=== PATIENT | male | born 1985 | race Hispanic/Latino ===

== ENCOUNTER 2023-10-27 22:28 | Inpatient (IN) | payer OTHER, SELFPAY ==
[2023-10-27] VITALS (8 sets, daily range): BP systolic 98–138; BP diastolic 72–110; BMI 40.9
[2023-10-27 15:51] LABS: % Basophils 0.5 % (0-2); % Immature Granulocytes 0.6 % (0-0.5); % Lymphocytes 26.4 % (20.5-51.1); % Monocytes 6.2 % (1.7-9.3); % Neutrophils 65.3 % (42.2-75.2); Absolute Basophils 0.1 10^3/uL (0-0.2); Absolute Eosinophils 0.1 10^3/uL (0-0.7); Absolute Immature Granulocytes 0.1 10^3/uL (0-0.05); Absolute Lymphocytes 2.6 10^3/uL (1.2-3.4); Absolute Monocytes 0.6 10^3/uL (0.1-0.6); Absolute Neutrophils 6.3 10^3/uL (1.4-6.5); Hematocrit 41.7 % (39.0-52.0); Hemoglobin 14.1 g/dL (13.0-18.0); Mean Corp Hgb Conc. 33.8 g/dL (33.0-37.0); Mean Corpuscular Hgb 26.1 pg (27.0-31.0); Mean Corpuscular Volume 77.2 fL (80.0-94.0); Mean Platelet Volume 10.7 fL (7.4-10.4); Nucleated Red Blood Cells % 0 % (-); Platelet Count 229 10^3/uL (130-400); Red Cell Dist. Width 15.6 % (11.5-14.5); White Blood Cell Count 9.7 10^3/uL (4.8-10.8)
[2023-10-27 16:04] LABS: ALT (SGPT) 70 U/L (0-50); AST (SGOT) 68 U/L (17-59); Albumin 4.2 g/dl (3.5-5.0); Alkaline Phosphatase 88 U/L (38-126); Blood Urea Nitrogen 18 mg/dl (9-20); Calcium 8.9 mg/dl (8.4-10.2); Carbon Dioxide 17 mmol/L (22-30); Chloride 110 mmol/L (98-107); Glucose 133 mg/dl (70-99); Potassium 4.6 mmol/L (3.5-5.1); Sodium 136 mmol/L (135-145); Total Bilirubin 0.7 mg/dl (0.2-1.3); Total Protein 7.1 g/dl (6.3-8.2); eGFR > 60.00
[2023-10-27 16:17] LABS: Troponin I 0.035 ng/ml
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
--- NOTE | 2023-10-27 16:46 | PHANOTE ---
10/27/2023, med rec tech, spoke to pt. to obtain their medication history; According to pharmacy fill data, pt. last filled their Farxiga 10 mg, Entresto 97-103 mg, and Furosemide 20 mg on 03/28/2023 for 30-day supplies of each. Pt. last filled
their Carvedilol 25 mg on 02/28/2023 for a 30-day supply. Pt. also states to be taking Losartan 25 mg daily; however, I could not find this med. in pt.'s pharmacy fill data or in [facility] records. Therefore, could not confirm it. Called pt.'s pharmacy
([facility] in [place]) and they confirmed pt.'s last fill dates.
[2023-10-27] MEDS: CARDIZEM 20 MG IV (17:12)
[2023-10-27] MEDS: CARDIZEM 125 IV (17:13)
[2023-10-27 18:01] LABS: NT-proBNP 3530 pg/ml
[2023-10-27 20:01] LABS: Troponin I 0.034 ng/ml
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
[2023-10-27] MEDS: ELIQUIS 5 MG PO (23:05)
[2023-10-27] MEDS: COREG 25 MG PO (23:05)
[2023-10-28] VITALS (46 sets, daily range): BP systolic 55–150; BP diastolic 30–136; BMI 42.1
[2023-10-28 00:23] LABS: Troponin I 0.041 ng/ml
[2023-10-28 00:37] LABS: TSH Reflex To Free T4 3.67 uIU/ml (0.47-4.68)
[2023-10-28] MEDS: XANAX 0.25 MG PO (02:43)
[2023-10-28 03:57] LABS: Venous Blood Gas HCO3 20.7 mmol/L (22-27); Venous Blood Gas O2 Sat % 38.4 %; Venous Blood Gas pCO2 44 mmHg (35-48); Venous Blood Gas pH 7.28 (7.32-7.43); Venous Blood Gas pO2 28 mmHg (30-50)
[2023-10-28 03:58] LABS: Venous Blood Gas O2 Therapy NRB 10 L
[2023-10-28] MEDS: LASIX 40 MG IV (04:05)
[2023-10-28 05:36] LABS: Hemoglobin 14.8 g/dL (13.0-18.0); Mean Corp Hgb Conc. 32.2 g/dL (33.0-37.0); Mean Corpuscular Hgb 26.5 pg (27.0-31.0); Mean Corpuscular Volume 82.3 fL (80.0-94.0); Mean Platelet Volume 10.2 fL (7.4-10.4); Platelet Count 290 10^3/uL (130-400); Red Blood Cell Count 5.59 10^6/uL (4.70-6.10); Red Cell Dist. Width 15.8 % (11.5-14.5)
[2023-10-28 06:04] LABS: Troponin I 0.027 ng/ml
--- NOTE | 2023-10-28 06:20 | PTCARENOTE ---
Pt HR sustaining 110-120s, SAHIL Bowen notified.
[2023-10-28 06:23] LABS: Blood Urea Nitrogen 22 mg/dl (9-20); Carbon Dioxide 20 mmol/L (22-30); Chloride 107 mmol/L (98-107); Estimated Creatinine Clearance 102 ml/min; Glucose 136 mg/dl (70-99); HDL Cholesterol 33 mg/dl; Iron 190 ug/dl (49-181); LDL Cholesterol, Calculated 84 mg/dl; Sodium 139 mmol/L (135-145); Total Cholesterol 144 mg/dl (50-199); Triglyceride 136 mg/dl (10-149); Very Low Density Lipoprotein 27 mg/dl (0-30); eGFR > 60.00
[2023-10-28 06:32] LABS: Percent Saturation 44 % (20-50); Total Iron Binding Capacity 423 ug/dl (261-462)
[2023-10-28 06:41] LABS: Ferritin 69.7 ng/ml (17.9-464.0)
[2023-10-28] MEDS: LOPRESSOR 2.5 MG IV (06:56)
--- NOTE | 2023-10-28 07:01 | EDRN ---
this RN received the pt from previous edging machine feeder RN, the pt is sleeping in stretcher in the lowest position, side rails up x1, HOB elevated, call horton within reach, the pt is AAO, able to answer questions appropriately and able to move all
extremities, the pt is Afib on the monitor in the 115-130's, edging machine feeder RN notified provider and Lopressor IV was administered, the pts HR is still in the 120's after administration, this RN will notify provider, last BP 126/80 (87), the pt was
received on 15L non re breather and was 100% Sp02, this RN placed the pt on 6L NC and Sp02 is 100%, edging machine feeder RN notified this RN that the pt refused Bipap last night, respiratory and provider wanted the pt on bipap due to increased work of
breathing and the pt refused, the pt is tachypnic in the 30's, this RN will reach out to provider to discuss HR and respiratory status, will continue to monitor the pt closely
--- NOTE | 2023-10-28 08:19 | CON.CAR ---
Consultation
Consultation Request
Date/Time Consultation Requested: 10/27/23 22:30
Date/Time Consultation Performed: 10/28/23 08:00
Requesting Provider: Dr. Bueno
Performing Provider: SAHIL Anderson for Dr. Benjamin
Reason for Consultation: Atrial fibrillation with RVR
Medical History
-
Chief Complaint: Palpitations
History of Present Illness:
Patient is a 38 year old male (known to Dr. Brunner, his primary woodwind instruments inspector) with type B PDA status postclosure, HFrEF, pulmonary hypertension, and paroxysmal atrial fibrillation who presented to the emergency department with a chief complaint of
palpitations. He states he gets intermittent palpitations multiple times per week but they usually self resolve and are nonlimiting. They will last for a few seconds. He had persistent palpitations starting what sounds like 10/26/2023.
He felt like his heart was racing. He presented to the emergency department when his heart rate would not slow down. He was found to be in atrial fibrillation with rapid ventricular response. He was given apixaban 5 mg last evening. Initially,
he was started on a diltiazem drip but his blood pressure did not support this. He denies missed doses of medications. He endorses adherence with daily weight. He believes he has gained approximately 3 pounds over the last 3 days. He has
associated orthopnea. He has some lower extremity edema which she reports is new over the past week. He is not on oral anticoagulation. He states he had paroxysmal atrial fibrillation briefly after his PDA procedure. He has an elevated proBNP of
3530 (comparison 184 in 08/2022). He is hypoxic and tachypneic. He is currently on 6 L nasal cannula. VBG overnight prompted BiPAP which the patient could not tolerate.
Records have been requested by his primary woodwind instruments inspector.
Past Medical History
Past Medical History: Arrhythmias (Paroxysmal atrial fibrillation), CHF (HFrEF) and Other (PDA s/p closure, morbid obesity)
Past Surgical History: Cardiac (PDA closure)
Social History
Tobacco: Non-Smoker
Alcohol: Occasional
Drug: None
Personal:
Living: With Family
Employment: Employed
Family History
Family History: Reviewed & Not Pertinent (Denies early CAD and SCD.)
Allergies / Home Medications
Allergy/AdvReac Type Severity Reaction Status Date / Time
No Known Allergies Allergy Verified 10/27/23 15:32
Medication Instructions Recorded Confirmed Type
losartan 25 mg tablet 25 mg PO DAILY Blood pressure 12/24/21 08/03/22 History
carvedilol 25 mg tablet 25 mg PO Q12H 10/27/23 10/27/23 History
dapagliflozin propanediol 10 mg 10 mg PO DAILY 10/27/23 10/27/23 History
tablet (Farxiga)
furosemide 20 mg tablet 60 mg PO DAILY 10/27/23 10/27/23 History
sacubitril 97 mg-valsartan 103 mg 1 tab PO BID 10/27/23 10/27/23 History
tablet (Entresto)
Review of Systems
-
History Source: Patient
All other systems: Negative unless noted
Constitutional: Weight Gain and Fatigue
Respiratory: Trouble Breathing
Cardiac: Palpitations
Abdomen/GI: No Symptoms
Musculoskeletal: Edema
Physical Exam
Vital Signs
Temp Pulse Resp BP Pulse Ox
98.5 F 119 27 114/94 99
10/28/23 07:02 10/28/23 08:01 10/28/23 08:01 10/28/23 08:01 10/28/23 08:00
Lab Results
10/28/23 05:24
10/28/23 05:24
Troponin I 0.027 ng/ml D 10/28/23 05:24
Umn-L-Vnciitdnriq Pept 3530 pg/ml 10/27/23 15:40
Physical Exam
General: Well Developed, Well Nourished and Respiratory Distress (mild)
HEENT: Normocephalic, Anicteric and Moist Mucous Membranes
Respiratory: Accessory Resp Muscle Use and Other (coarse bilateral bases)
Cardiac: S1/S2, Irregular Rhythm and Peripheral Edema (+1 non pitting ankle edema)
Breast: Deferred by me
GI: Soft, Non Tender, Non Distended and Normal Bowel Sounds
Rectal: Deferred by Provider
Genito-urinary: No Costovertebral Tender
Musculoskeletal: No Clubbing and No Cyanosis
Skin: Warm and Dry
Neuro: AO x 3
Hematologic/Lymphatic: No Lymphadenopathy
Psych: Calm
Impression / Plan
-
Acute hypoxic respiratory failure
-CXR without overwhelming heart failure
-VBG with metabolic acidosis
-Declined BiPAP overnight
Atrial fibrillation with rapid ventricular response
-Rates elevated, did not tolerate intravenous diltiazem
-Start digoxin
-Oral Anticoagulation: None prior to arrival, started apixaban 5mg BID last evening
-[id number]: Score 1 as of now (Heart failure)
-TSH 3.67
HFrEF (EF 30-35% by TTE 2021), chronic
-He received diuresis overnight, hold with rising creatinine
-GDMT as tolerated
-Beta-iglesia: Carvedilol 25 mg twice daily
-Aldosterone agonist: Can consider after recovery
-Sacubitril/valsartan: 97-103 mg twice daily
-SGLT inhibitor: Farxiga 10 mg daily
-Heart failure education as he recovers
-Trend daily weight, I/O, and BMP with diuresis
Abnormal troponin, likely nonischemic myocardial injury in the setting of tachyarrhythmia
-Chest pain-free, peak troponin appears to be 0.041
Pulmonary HTN, moderate, update TTE
Fasting hyperglycemia, HgbA1c pending
PDA S/P occlusion
Obesity, BMI 40, he would benefit from weight loss, concern for KARAN, he denies prior outpatient sleep study
Data Reviewed
-
EKG: Report Reviewed by me (Atrial fibrillation with rapid ventricular response, rate 158; atrial fibrillation with rapid ventricular response, nonspecific T wave abnormality, rate 117)
Radiology: Report Reviewed by me (CXR: Moderate to severe cardiomegaly. Severe chronic distention of the main pulmonary artery secondary to treated left to right shunting across a patent ductus arteriosus. Occlusion device now in place in the left
side of the mediastinum.)
Labs: Labs Reviewed by me
Old Records: Reviewed
[2023-10-28] MEDS: COREG 25 MG PO ×2 (09:13→19:39)
[2023-10-28] MEDS: ELIQUIS 5 MG PO ×2 (09:13→19:39)
--- NOTE | 2023-10-28 09:21 | EDRN ---
cardiology at the bedside speaking with the pt, the pt was able to order breakfast, the pt presses the call horton when he needs to stand at the bedside to urinate in the urinal, HR still currently in the 120-140's, AM medications administered,the pt
is currently still on 6L NC Sp02 96%, will continue to monitor the pt closely
[2023-10-28] MEDS: LANOXIN 250 MCG IV ×2 (09:33→10:48)
--- NOTE | 2023-10-28 09:35 | W.PN.HOSP.TC ---
Addendum entered and electronically signed by Brian Jeff DO 10/28/23 09:44:
Patient admits to drinking over a gallon of water daily. Counseled on importance of fluid and sodium restriction in light of his heart failure history.
Original Note:
Today's Communication/Plan
-
Hold Entresto
Await echo
Repeat labs in the morning
COVID-19 test
Assessment / Plan
Assessment / Plan
Gen-AAOx3, NAD
HEENT-NC, AT, anicteric, clear oral mm
Neck-supple
CV-reg, no M, +S1/S2
Lungs-decreased breath sounds bilaterally
Abd-soft, NT, ND
Ext-no edema
Musculoskeletal-no cyanosis, clubbing
Skin-warm and dry
Neuro-grossly non-focal
Psych-calm, cooperative
Acute hypoxic respiratory failure -suspect to be due to acute pulmonary edema, rapid atrial fibrillation, possibly pulmonary hypertension related as well. Currently on 6 L nasal cannula oxygen. Other considerations are right to left shunting.
Await echocardiogram. Discussed with cardiology.
Acute heart failure with reduced EF exacerbation -suspect overall volume overloaded but difficult exam due to his habitus. BNP 3530. Received a dose of IV Lasix early this morning, now on hold due to rising creatinine.
Has been on furosemide 60 mg daily at home.
Rapid atrial fibrillation -could not tolerate Cardizem due to hypotension. Digoxin started. Eliquis started, will continue. TSH normal.
CAMILO -creatinine up to 1.4. Will stop Entresto. Hold further diuretics for now. Check bladder scan.
Troponin elevation -probably due to non-[place] troponin elevation due to acute illness. Troponin has peaked.
PDA -status post closure [address] [facility].
Morbid obesity due to excess calories
Full code
updated at the bedside.
Anticipated Discharge: > 48 hours
Subjective/Interval History
-
Date of Service: October 28, 2023
Patient seen and examined. Complaining of shortness of breath, cough. Symptoms started on Tuesday.
Objective Data
-
Labs:
Laboratory Results
10/28/23 10/28/23
03:27 05:24
WBC 13.0 H
Hgb 14.8
Hct 46.0
Plt Count 290 D
HCO3 Cancelled
Sodium 139
Potassium 5.0
Chloride 107
Carbon Dioxide 20 L
BUN 22 H
Creatinine 1.4 H
Glucose 136 H
Calcium 9.0
Vital Signs:
Vital Signs
Temp Pulse Resp BP Pulse Ox
98.5 F 142 19 108/88 99
10/28/23 07:02 10/28/23 09:33 10/28/23 09:15 10/28/23 09:13 10/28/23 09:00
I&O
10/27/23 10/28/23 10/29/23
06:59 06:59 06:59
Output Total 900 / 900 500 / 500
Balance -900 / -900 -500 / -500
Review of Systems
-
History Source: Patient
All other systems: Reviewed and negative
[2023-10-28 10:41] LABS: COVID-19 Antigen Negative (Negative)
[2023-10-28 11:22] LABS: Troponin I 0.038 ng/ml
--- NOTE | 2023-10-28 11:47 | EDRN ---
the pt is resting in stretcher, family at the pts bedside, pts HR in the 120's in Afib, currently still on 6L NC Sp02 99%, no c/o chest pain,no c/o SOB, will continue to monitor the pt closely
--- NOTE | 2023-10-28 11:51 | CM ---
CM met with patient in room. Patient confirmed demographics. Patient lives independently with . Patient denies history of VN, SNF or DME. Patient uses [facility] for [facility]. Patient is active with his PCP.
CM called [facility] and confirmed Eliquis coverage at $40. Patient is agreeable to cost. 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
--- NOTE | 2023-10-28 12:57 | EDRN ---
verbal report called to the receiving nurse in IVU
--- NOTE | 2023-10-28 13:25 | EDRN ---
the pt is eating lunch, VS WNL, the pt denies needing anything at this time, will continue to monitor the pt closely
--- NOTE | 2023-10-28 14:35 | PTCARENOTE ---
Rec'd pt from ED AAOx3 w/c/o 'mild chest pressure, not really pain'. Pt able to ambulate unassisted into the rm. Pt CORRAL & at rest. Pt on 6L O2 via NC w/O2 sats in mid 90's. HR in the 110-120's at rest and in the 150's w/any activity. Pt w/family at
the bedside. Plan of care ongoing.
[2023-10-28] MEDS: LASIX 60 MG IV (17:40)
[2023-10-28] MEDS: FLUSH (NSS) 2 FLUSH IV (17:41)
[2023-10-28] MEDS: FLUSH (NSS) 1 FLUSH IV (19:41)
[2023-10-29] VITALS (8 sets, daily range): BP systolic 84–128; BP diastolic 57–95; BMI 41.6
--- NOTE | 2023-10-29 01:57 | PTCARENOTE ---
Addendum entered by Aurelia Gaytan RN 10/29/23 05:56:
Patient appears much more comfortable this morning. His breathing seems less labored and he states that he is feeling better this AM. He denies pain. He remains A-Fib on the monitor with improved HR mostly in the 110s-120s. He will jump into the
130s-140s at times, but he is mostly improved from the beginning of the shift. This was followed up by Temo Coker NP, this morning. Patient appears comfortable in bed at this time. Will continue to monitor.
Original Note:
Received patient at change of shift this PM. AAOx3. VSS on 2L O2. He is refusing BiPAP at night. He is A-Fib on the monitor. HR has been anywhere in the 110s-160s at times. Discussed this with Jhonatan Coker NP. 2.5mg IV Lopressor ordered and
decided to hold after looking at previous change in BP with IV Lopressor and scheduled Coreg together. BPs currently 110s-120s/70s. Will continue to monitor BP and HR through night. INTx2 patent. He denies chest pain or discomfort, but is SOB and
labored in breathing. Plan of care discussed. He is receptive to teaching and motivated. He denies pain and appears comfortable in bed at this time. He was advised to maintain bedrest until HR and breathing become more under control. He understands
to use his call horton for assistance. Will continue to monitor.
[2023-10-29 05:10] LABS: % Basophils 0.6 % (0-2); % Eosinophils 2.1 % (0-6); % Immature Granulocytes 0.6 % (0-0.5); % Lymphocytes 24.4 % (20.5-51.1); % Monocytes 7.7 % (1.7-9.3); % Neutrophils 64.6 % (42.2-75.2); Absolute Basophils 0.1 10^3/uL (0-0.2); Absolute Eosinophils 0.2 10^3/uL (0-0.7); Absolute Immature Granulocytes 0.1 10^3/uL (0-0.05); Absolute Lymphocytes 2.1 10^3/uL (1.2-3.4); Absolute Monocytes 0.7 10^3/uL (0.1-0.6); Absolute Neutrophils 5.7 10^3/uL (1.4-6.5); Hematocrit 42.9 % (39.0-52.0); Hemoglobin 13.9 g/dL (13.0-18.0); Mean Corp Hgb Conc. 32.4 g/dL (33.0-37.0); Mean Corpuscular Hgb 26.8 pg (27.0-31.0); Mean Corpuscular Volume 82.7 fL (80.0-94.0); Mean Platelet Volume 10.4 fL (7.4-10.4); Nucleated Red Blood Cells % 0 % (-); Platelet Count 254 10^3/uL (130-400); Red Blood Cell Count 5.19 10^6/uL (4.70-6.10); Red Cell Dist. Width 15.7 % (11.5-14.5); White Blood Cell Count 8.7 10^3/uL (4.8-10.8)
[2023-10-29 05:35] LABS: ALT (SGPT) 97 U/L (0-50); AST (SGOT) 53 U/L (17-59); Alkaline Phosphatase 83 U/L (38-126); Blood Urea Nitrogen 22 mg/dl (9-20); Calcium 8.4 mg/dl (8.4-10.2); Carbon Dioxide 26 mmol/L (22-30); Chloride 107 mmol/L (98-107); Estimated Creatinine Clearance 102 ml/min; Glucose 107 mg/dl (70-99); Potassium 4.7 mmol/L (3.5-5.1); Sodium 137 mmol/L (135-145); Total Bilirubin 0.6 mg/dl (0.2-1.3); Total Protein 6.7 g/dl (6.3-8.2); eGFR > 60.00
[2023-10-29] MEDS: LASIX 60 MG IV (08:35)
[2023-10-29] MEDS: COREG 25 MG PO ×2 (08:35→20:35)
[2023-10-29] MEDS: ELIQUIS 5 MG PO ×2 (08:35→20:33)
[2023-10-29] MEDS: FLUSH (NSS) 1 FLUSH IV (08:36)
--- NOTE | 2023-10-29 08:45 | W.PN.HOSP.TC ---
Today's Communication/Plan
-
Continue diuresis
Monitor weights
Bladder scan
Labs in the morning
Assessment / Plan
Assessment / Plan
Gen-AAOx3, NAD, obese
HEENT-NC, AT, anicteric, clear oral mm
Neck-supple
CV-reg, no M, +S1/S2
Lungs-decreased breath sounds bilaterally
Abd-soft, NT, ND
Ext-trace bilateral lower extremity edema
Musculoskeletal-no cyanosis, clubbing
Skin-warm and dry
Neuro-grossly non-focal
Psych-calm, cooperative
Acute hypoxic respiratory failure -suspect to be due to acute pulmonary edema, rapid atrial fibrillation, acute heart failure exacerbation. Oxygenation improving, now on 4 L nasal cannula oxygen.
Acute heart failure with reduced EF exacerbation -continue IV Lasix. Echocardiogram shows LVEF 15 to 20%, global hypokinesis, estimated PA pressure 30 to 35 mmHg. EF has dropped compared to January 2022 echocardiogram which was 30 to 35% at the time.
Rapid atrial fibrillation -could not tolerate Cardizem due to hypotension. Digoxin started. Continue carvedilol. Rates are still fast. Cardiology to assess today. Eliquis started, will continue. TSH normal.
CAMILO -creatinine up to 1.4, stable today. Hold Entresto. Monitor renal function closely on diuresis. Check bladder scan.
Troponin elevation -probably due to non-[place] troponin elevation due to acute illness.
Impaired fasting glucose -hemoglobin A1c 6.0%. Discussed with patient, weight loss is the gould.
PDA -status post closure 2 years ago, [facility].
Morbid obesity due to excess calories
Full code
Anticipated Discharge: > 48 hours
Subjective/Interval History
-
Date of Service: October 29, 2023
Patient seen and examined. States shortness of breath is improving. No other complaints.
Objective Data
-
Labs:
Laboratory Results
10/29/23
04:56
WBC 8.7
Hgb 13.9
Hct 42.9
Plt Count 254
Sodium 137
Potassium 4.7
Chloride 107
Carbon Dioxide 26
BUN 22 H
Creatinine 1.4 H
Glucose 107 H
Calcium 8.4
Total Bilirubin 0.6
AST 53
ALT 97 H
Alkaline Phosphatase 83
Vital Signs:
Vital Signs
Temp Pulse Resp BP Pulse Ox
97.4 F 126 20 120/81 100
10/29/23 08:26 10/29/23 08:26 10/29/23 08:26 10/29/23 08:26 10/29/23 08:26
I&O
10/28/23 10/29/23 10/30/23
06:59 06:59 06:59
Intake Total 480 / 480
Output Total 900 / 900 2325 / 2325
Balance -900 / -900 -1845 / -1845
Review of Systems
-
History Source: Patient
All other systems: Reviewed and negative
--- NOTE | 2023-10-29 11:44 | W.PN.CD ---
Addendum entered and electronically signed by Chase Benjamin MD 10/29/23 12:06:
I saw and examined the patient.
The FURNITURE DECALS INSPECTOR's note was reviewed and I agree with the note.
Comment: cont w dig loading for rate control
BP is low - not clear if he is volume overloaded, or if this is exacc of Pulm Htn
plan for RHC Tuesday
Original Note:
Today's Communication / Plan
-
Rate control AF- add digoxin
GDMT limited by renal function and BP
Plan RHC for Tuesday
Monitor renal function
Impression / Plan
-
Acute hypoxic respiratory failure
-CXR without overwhelming heart failure
-VBG with metabolic acidosis
-needs OP sleep study
Atrial fibrillation with rapid ventricular response
-Rates elevated, did not tolerate intravenous diltiazem
-add digoxin
-Oral Anticoagulation: None prior to arrival, started apixaban 5mg BID this admit
-[id number]: Score 1 as of now (Heart failure)
-TSH 3.67
HFrEF (EF 30-35% by TTE 2021), chronic
-He received diuresis overnight, hold with rising creatinine
-GDMT as tolerated
-Beta-iglesia: Carvedilol 25 mg twice daily
-Aldosterone agonist: Can consider after recovery
-Sacubitril/valsartan: 97-103 mg twice daily ( on hold given renal function and diuresis)
-SGLT inhibitor: Farxiga 10 mg daily
-Heart failure education as he recovers
-Trend daily weight, I/O, and BMP with diuresis
-echo 10/28/23 EF 15-20 global hypokinesis, mild MR, trace TR, PASP 30-35mmhg. LA volume severely abnormal > 48ml/m2)
-Consider RHC on Tuesday
CAMILO: creat 10/27 1.1 now 1.4 with diuresis, entresto held
Abnormal troponin, likely nonischemic myocardial injury in the setting of tachyarrhythmia
-Chest pain-free, peak troponin appears to be 0.041
Pulmonary HTN, moderate,
Fasting hyperglycemia, HgbA1c pending
PDA S/P occlusion
Obesity, BMI 40, he would benefit from weight loss, concern for KARAN, he denies prior outpatient sleep study
Physical Exam
Vital Signs/Labs
Vital Signs
Temp Pulse Resp BP Pulse Ox
97.4 F 126 20 120/81 100
10/29/23 08:26 10/29/23 08:26 10/29/23 08:26 10/29/23 08:26 10/29/23 08:26
10/28/23 10/29/23 10/30/23
06:59 06:59 06:59
Actual Weight 133 kg 135.1 kg
10/29/23 04:56
10/29/23 04:56
Triglycerides 136 mg/dl (10-149) 10/28/23 05:24
LDL Cholesterol, Calc 84 mg/dl 10/28/23 05:24
VLDL Cholesterol, Calc 27 mg/dl (0-30) 10/28/23 05:24
HDL Cholesterol 33 mg/dl 10/28/23 05:24
10/27/23
15:40
Jrj-C-Oqtitcvqphn Pept 3530
LAB Results
10/27/23 10/27/23 10/27/23
15:40 19:20 23:32
Troponin I 0.035 H* 0.034 0.041 H*
10/28/23 10/28/23
05:24 10:07
Troponin I 0.027 D 0.038 H* D
Physical Exam
Cardiovascular: Rhythm/rate is irregular (tachy)
Respiratory: Respiratory effort normal and Lungs clear to auscul. (few rales bases)
Neuro/Psych: AO x 3
Data Reviewed
-
Date of Service: October 29, 2023
Echo: Report Reviewed by me (Echo 10/28/23 The rhythm is atrial fibrillation with ventricular response rate 110-130. Severely reduced left ventricular systolic function. Left ventricular ejection fraction is 15-20%.Global hypokinesis. Indexed LA
volume is severely abnormal (> 48 mL/m2). Mild mitral regurgitation. Trace tric)
Medical Tests (PFT, Pathology etc): Other (tele- AF 100-120's )
Labs: Labs Reviewed by me
--- NOTE | 2023-10-29 12:30 | PTCARENOTE ---
O2 down to 4L-sat 99%. Patient still whipple. Pleasant and cooperative. Using call horton appropriately to make needs known.
[2023-10-29 13:51] LABS: Urine Albumin Negative (Neg - Trace); Urine Bilirubin Negative (Negative); Urine Character Clear (Clear); Urine Color Yellow; Urine Glucose Negative (Negative); Urine Ketone Negative (Negative); Urine Leukocyte Negative (Negative); Urine Nitrite Negative (Negative); Urine Occult Blood Negative (Negative); Urine Specific Gravity 1.015 (<1.030); Urine Urobilinogen Negative (Neg - 1+)
[2023-10-29] MEDS: LANOXIN 250 MCG PO (14:25)
--- NOTE | 2023-10-29 18:47 | PTCARENOTE ---
Pt oob independently in the room. Room air sat 99%. Pt denies any sob. No c/o offered.
[2023-10-30] VITALS (7 sets, daily range): BP systolic 108–129; BP diastolic 72–99; BMI 41.3
--- NOTE | 2023-10-30 00:26 | PTCARENOTE ---
Received pt at handoff. AOx4. Assessment noted as documented. Pt sating at 98% on RA. No c/o pain/discomfort/SOB. At 2300, VSS obtained. Sating at 95% RA. Pt now dyspneic at rest. 2L O2 nasal cannula placed sating at 97%. 30 min later pt rang call
sol. Pt requesting 4L O2 nasal cannula because that is where he feels the most comfortable while sleeping. Pt resting in bed; call sol w/in reach.
[2023-10-30 05:51] LABS: ALT (SGPT) 82 U/L (0-50); AST (SGOT) 45 U/L (17-59); Albumin 3.8 g/dl (3.5-5.0); Alkaline Phosphatase 83 U/L (38-126); Blood Urea Nitrogen 24 mg/dl (9-20); Calcium 8.7 mg/dl (8.4-10.2); Carbon Dioxide 23 mmol/L (22-30); Chloride 108 mmol/L (98-107); Estimated Creatinine Clearance > 125 ml/min; Glucose 101 mg/dl (70-99); Potassium 4.4 mmol/L (3.5-5.1); Sodium 137 mmol/L (135-145); Total Bilirubin 0.8 mg/dl (0.2-1.3); Total Protein 6.6 g/dl (6.3-8.2); eGFR > 60.00
--- NOTE | 2023-10-30 08:32 | W.PN.HOSP.TC ---
Today's Communication/Plan
-
Continue diuresis
Check labs in the morning
Assessment / Plan
Assessment / Plan
Gen-AAOx3, NAD, obese
HEENT-NC, AT, anicteric, clear oral mm
Neck-supple
CV-reg, no M, +S1/S2
Lungs-decreased breath sounds bilaterally
Abd-soft, NT, ND
Ext-trace bilateral lower extremity edema
Musculoskeletal-no cyanosis, clubbing
Skin-warm and dry
Neuro-grossly non-focal
Psych-calm, cooperative
Acute hypoxic respiratory failure -suspect to be due to acute pulmonary edema, rapid atrial fibrillation, acute heart failure exacerbation. Oxygenation improving, now on 4 L nasal cannula oxygen. Wean down as able.
Acute heart failure with reduced EF exacerbation -continue IV Lasix. Echocardiogram shows LVEF 15 to 20%, global hypokinesis, estimated PA pressure 30 to 35 mmHg. Echo reading may not be reliable in setting of tachycardia. EF has dropped compared
to January 2022 echocardiogram which was 30 to 35% at the time. Weight is down another kilogram overnight.
Right heart cath being considered. Discussed with Dr. Benjamin.
Rapid atrial fibrillation -could not tolerate Cardizem due to hypotension. Digoxin started. Continue carvedilol. Rates are still fast. Cardiology to assess today. Eliquis started, will continue. TSH normal.
CAMILO -creatinine improving, 1.1 today. Hold Entresto. Monitor renal function closely on diuresis. Bladder scan normal.
Troponin elevation -probably due to non-[place] troponin elevation due to acute illness.
Impaired fasting glucose -hemoglobin A1c 6.0%. Discussed with patient, weight loss is the gould.
PDA -status post closure 2 years ago, [facility].
Morbid obesity due to excess calories
Full code
Anticipated Discharge: > 48 hours
Subjective/Interval History
-
Date of Service: October 30, 2023
Patient seen and examined. Feeling better, less short of breath, still with mild dyspnea on exertion. Denies orthopnea.
Objective Data
-
Labs:
Laboratory Results
10/30/23
04:54
Sodium 137
Potassium 4.4
Chloride 108 H
Carbon Dioxide 23
BUN 24 H
Creatinine 1.1
Glucose 101 H
Calcium 8.7
Total Bilirubin 0.8
AST 45
ALT 82 H
Alkaline Phosphatase 83
Vital Signs:
Vital Signs
Temp Pulse Resp BP Pulse Ox
97.4 F 123 20 125/79 100
10/30/23 07:13 10/30/23 07:13 10/30/23 07:13 10/30/23 07:13 10/30/23 07:13
I&O
10/29/23 10/30/23 10/31/23
06:59 06:59 06:59
Intake Total 480 / 480 1060 / 1060
Output Total 2325 / 2325 2024 / 2024
Balance -1845 / -1845 -965 / -965
Review of Systems
-
History Source: Patient
All other systems: Reviewed and negative
[2023-10-30] MEDS: ELIQUIS 5 MG PO ×2 (08:50→19:47)
[2023-10-30] MEDS: LASIX 60 MG IV ×2 (08:51→17:40)
[2023-10-30] MEDS: FLUSH (NSS) 1 FLUSH IV ×2 (08:52→19:48)
[2023-10-30] MEDS: COREG 25 MG PO ×2 (08:53→19:47)
--- NOTE | 2023-10-30 10:12 | W.PN.CD ---
Today's Communication / Plan
-
-
increase diuresis to BID
ELVIS-CV in AM
cancel plan for RHC unless renal function get worse w diuresis
Impression / Plan
-
Hx of CM w EF 40% and w PDA closure in 2021, followed at [facility] adult [facility] clinic
-
Acute hypoxic respiratory failure
-CXR without overwhelming heart failure, but he is improving w diuresis
-VBG with metabolic acidosis, resolved
-needs OP sleep study
Atrial fibrillation with rapid ventricular response, new per patient
-Rates elevated, did not tolerate intravenous diltiazem due to BP falling
-add digoxin, but limited by ocassional pauses
-Oral Anticoagulation: None prior to arrival, started apixaban 5mg BID this admit
-[id number]: Score 1 as of now (Heart failure)
-TSH 3.67
-Plan ELVIS Cv in AM Tuesday
HFrEF (EF 30-35% by TTE 2021), chronic
-He received diuresis Cr increased, but now has improved
-GDMT as tolerated
-Beta-iglesia: Carvedilol 25 mg twice daily
-Aldosterone agonist: Can consider after recovery
-Sacubitril/valsartan: 97-103 mg twice daily ( on hold given renal function and diuresis)
-SGLT inhibitor: Farxiga 10 mg daily
-Heart failure education as he recovers
-Trend daily weight, I/O, and BMP with diuresis
-echo 10/28/23 EF 15-20 global hypokinesis, mild MR, trace TR, PASP 30-35mmhg. LA volume severely abnormal > 48ml/m2)
-Consider RHC if renal function does not tolerate diuresis - so far, renal function is improving
CAMILO: creat 10/27 1.1 now 1.4 with diuresis, entresto held
Abnormal troponin, likely nonischemic myocardial injury in the setting of tachyarrhythmia
-Chest pain-free, peak troponin appears to be 0.041
Pulmonary HTN, moderate,
Fasting hyperglycemia, HgbA1c pending
PDA S/P occlusion
Obesity, BMI 40, he would benefit from weight loss, concern for KARAN, he denies prior outpatient sleep study
Dischg Planning
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
Physical Exam
Vital Signs/Labs
Vital Signs
Temp Pulse Resp BP Pulse Ox
97.4 F 123 20 125/79 100
10/30/23 07:13 10/30/23 07:13 10/30/23 07:13 10/30/23 07:13 10/30/23 07:13
10/29/23 10/30/23 10/31/23
06:59 06:59 06:59
Actual Weight 297 lb 13.512 oz 296 lb 1.293 oz
10/29/23 04:56
10/30/23 04:54
Triglycerides 136 mg/dl (10-149) 10/28/23 05:24
LDL Cholesterol, Calc 84 mg/dl 10/28/23 05:24
VLDL Cholesterol, Calc 27 mg/dl (0-30) 10/28/23 05:24
HDL Cholesterol 33 mg/dl 10/28/23 05:24
10/27/23
15:40
Xkk-X-Grbxvjxljeq Pept 3530
LAB Results
10/27/23 10/27/23 10/27/23
15:40 19:20 23:32
Troponin I 0.035 H* 0.034 0.041 H*
10/28/23 10/28/23
05:24 10:07
Troponin I 0.027 D 0.038 H* D
Physical Exam
Cardiovascular: Rhythm & rate is regular and Pedal edema present
Respiratory: Respiratory effort normal and Crackles Present
Data Reviewed
-
Date of Service: October 30, 2023
EKG: Tracing Personally Visualized and interpreted
Echo: Report Reviewed by me
Medical Tests (PFT, Pathology etc): Image Personally Visualized and interpreted
Labs: Labs Reviewed by me
[2023-10-30] MEDS: LANOXIN 250 MCG PO (11:04)
--- NOTE | 2023-10-30 18:25 | PTCARENOTE ---
Pt remains in Afib, rate in the 100's to 140's. Pt has occasional dyspnea with exertion. No c/o offered.
[2023-10-31] VITALS (8 sets, daily range): BP systolic 104–148; BP diastolic 73–135; BMI 40.8
--- NOTE | 2023-10-31 00:22 | PTCARENOTE ---
Received patient at change of shift this PM. AAOx3. VSS. He is A-Fib on the monitor. HR in the 110s-130s. INTx2 patent. He denies chest pain or discomfort. Plan of care discussed with patient and his at the bedside. He is receptive to teaching
and motivated. He understands that he is to remain NPO for ELVIS/CV tomorrow. We discussed his medications. He denies pain and appears comfortable in bed at this time. Will continue to monitor.
[2023-10-31 06:18] LABS: ALT (SGPT) 83 U/L (0-50); AST (SGOT) 47 U/L (17-59); Alkaline Phosphatase 85 U/L (38-126); Blood Urea Nitrogen 27 mg/dl (9-20); Calcium 9.2 mg/dl (8.4-10.2); Carbon Dioxide 26 mmol/L (22-30); Chloride 100 mmol/L (98-107); Estimated Creatinine Clearance > 125 ml/min; Glucose 108 mg/dl (70-99); Potassium 3.9 mmol/L (3.5-5.1); Sodium 138 mmol/L (135-145); Total Bilirubin 0.9 mg/dl (0.2-1.3); Total Protein 6.8 g/dl (6.3-8.2); eGFR > 60.00
[2023-10-31] MEDS: COREG 25 MG PO ×2 (08:31→20:49)
[2023-10-31] MEDS: LASIX 60 MG IV ×2 (08:31→15:53)
[2023-10-31] MEDS: ELIQUIS 5 MG PO ×2 (08:31→20:49)
--- NOTE | 2023-10-31 09:02 | PTCARENOTE ---
Assumed care of pt from night RN. Pt received awake and alert, Ox3. VSS. CM shows AF 100-130's, POX 100% on RA. Pt remains NPO for ELVIS/ECHO. He denies any pain or discomfort at this time. Report given to CCL RN, pt taken to CL for ELVIS/ECHO.
[2023-10-31] MEDS: TYLENOL 650 MG PO ×2 (10:34→20:54)
--- NOTE | 2023-10-31 10:38 | PTCARENOTE ---
Received pt from CL post EVLIS/ECHO. He arrives to room in NSR 70-80's. Tylenol 650 mg given po for 6/10 h/a as per DEC. Diet re-instated as ordered.
--- NOTE | 2023-10-31 10:49 | W.PN.CD ---
Today's Communication / Plan
-
- s/p DCCV now back in sinus
- continue IV diuresis
Impression / Plan
-
Hx of CM w EF 40% and w PDA closure in 2021, followed at [facility] adult congenital clinic
-
Acute hypoxic respiratory failure
-CXR without overwhelming heart failure, but he is improving w diuresis
-VBG with metabolic acidosis, resolved
-needs OP sleep study
Atrial fibrillation with rapid ventricular response, new per patient --> S/p DCCV with yazdanism of sinus rhythm
-Rates elevated, did not tolerate intravenous diltiazem due to BP falling
-add digoxin, but limited by ocassional pauses
-Oral Anticoagulation: None prior to arrival, started apixaban 5mg BID this admit, will need to remain on indefinitely
-[id number]: Score 1 as of now (Heart failure)
-TSH 3.67
-Sinus rhythm restored on 10/31
HFrEF (EF 30-35% by TTE 2021), chronic TTE this admit showed EF of 15-20%
-He received diuresis Cr increased, but now has improved
-GDMT as tolerated
-Beta-iglesia: Carvedilol 25 mg twice daily
-Aldosterone agonist: Can consider after recovery
-Sacubitril/valsartan: 97-103 mg twice daily ( on hold given renal function and diuresis)
-SGLT inhibitor: Farxiga 10 mg daily
- Continue IV diuresis BID, once dry weight achieved (270 lbs?) will restart Farxiga and Entresto
-Heart failure education as he recovers
-Trend daily weight, I/O, and BMP with diuresis
-echo 10/28/23 EF 15-20 global hypokinesis, mild MR, trace TR, PASP 30-35mmhg. LA volume severely abnormal > 48ml/m2)
-Consider RHC if renal function does not tolerate diuresis - so far, renal function is improving
CAMILO: creat 10/27 1.1 now 1.4 back to 1.1 resolving
Abnormal troponin, likely nonischemic myocardial injury in the setting of tachyarrhythmia
-Chest pain-free, peak troponin appears to be 0.041
Pulmonary HTN, moderate,
Fasting hyperglycemia, HgbA1c pending
PDA S/P occlusion
Obesity, BMI 40, he would benefit from weight loss, concern for KARAN, he denies prior outpatient sleep study
Dischg Planning
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
Physical Exam
Vital Signs/Labs
Vital Signs
Temp Pulse Resp BP Pulse Ox
97.7 F 126 20 122/103 100
10/31/23 07:57 10/31/23 08:31 10/31/23 07:57 10/31/23 08:31 10/31/23 08:49
10/30/23 10/31/23 11/01/23
06:59 06:59 06:59
Actual Weight 296 lb 1.293 oz 292 lb 1.8 oz
10/29/23 04:56
10/31/23 05:17
Triglycerides 136 mg/dl (10-149) 10/28/23 05:24
LDL Cholesterol, Calc 84 mg/dl 10/28/23 05:24
VLDL Cholesterol, Calc 27 mg/dl (0-30) 10/28/23 05:24
HDL Cholesterol 33 mg/dl 10/28/23 05:24
10/27/23
15:40
Qfk-Q-Vmqecfncntr Pept 3530
LAB Results
10/28/23
10:07
Troponin I 0.038 H* D
Physical Exam
Constitutional: No acute distress
EENT: Anicteric
Cardiovascular: Rhythm & rate is regular and Pedal edema present (trace)
Respiratory: Respiratory effort normal and Lungs clear to auscul.
GI: Soft
Neuro/Psych: AO x 3
Data Reviewed
-
Date of Service: October 31, 2023
EKG: Tracing Personally Visualized and interpreted
Echo: Tracing Personally Visualized and interpreted
Labs: Labs Reviewed by me
[2023-10-31] MEDS: LANOXIN 250 MCG PO (11:14)
--- NOTE | 2023-10-31 13:28 | CM ---
Chart reviewed. Patient is independent of ADLS, lives with his in a 2 STH, 0 DANN, 0 DME. Plan is for the patient to return home. CM to follow
--- NOTE | 2023-10-31 14:35 | W.PN.HOSP.TC ---
Today's Communication/Plan
-
cont Eliquis
await cards input re: appropriateness for d/c
Assessment / Plan
Assessment / Plan
pt is a 38 year old male
Acute hypoxic respiratory failure--suspect to be due to acute pulmonary edema, rapid atrial fibrillation, acute systolic heart failure exacerbation-- off O2 now
Acute heart failure with reduced EF exacerbation--continue IV Lasix. Echocardiogram shows LVEF 15 to 20%, global hypokinesis, estimated PA pressure 30 to 35 mmHg. Echo reading may not be reliable in setting of tachycardia. EF has dropped compared
to January 2022 echocardiogram which was 30 to 35% at the time--perhaps rate related?
Rapid atrial fibrillation -could not tolerate Cardizem due to hypotension. Digoxin started. Continue carvedilol--apprec cards-- Eliquis started, will continue. TSH normal.
CAMILO -creatinine improving, 1.1 today. Hold Entresto. Monitor renal function closely on diuresis. Bladder scan normal.
Troponin elevation -probably due to non-[place] troponin elevation due to acute illness.
Impaired fasting glucose -hemoglobin A1c 6.0%. Discussed with patient, weight loss is the gould.
PDA -status post closure 2 years ago, [facility].
Morbid obesity due to excess calories
Full code
Anticipated Discharge: 24 - 48 hours
Subjective/Interval History
-
Date of Service: October 31, 2023
pt feeling better after cardioversion and ongoing diuresis
Objective Data
-
Labs:
Laboratory Results
10/31/23
05:17
Sodium 138
Potassium 3.9
Chloride 100
Carbon Dioxide 26
BUN 27 H
Creatinine 1.1
Glucose 108 H
Calcium 9.2
Total Bilirubin 0.9
AST 47
ALT 83 H
Alkaline Phosphatase 85
Vital Signs:
max temp for 24 hours
10/30/23
19:45
Temp 98.2 F
Vital Signs
Temp Pulse Resp BP Pulse Ox
97.2 F 75 20 114/73 97
10/31/23 11:55 10/31/23 13:00 10/31/23 11:55 10/31/23 11:56 10/31/23 11:55
I&O
10/30/23 10/31/23 11/01/23
06:59 06:59 06:59
Intake Total 1060 / 1060 240 / 240
Output Total 2024 4800 / 4800
Balance -965 / -965 -4560 / -4560
Review of Systems
-
All other systems: Reviewed and negative
Physical Exam
-
General: Well Developed, Well Nourished and No Apparent Distress
HEENT: Normocephalic and Atraumatic
Respiratory: Clear to Auscultation; Negative Wheezes or Rhonchi
Cardiac: Regular Rhythm and S1/S2; Negative Murmur
GI: Soft, Nontender, Nondistended and Normal Bowel Sounds
Musculoskeletal: No Clubbing and No Cyanosis; Negative No Edema (trace edema bilaterally)
Neuro: Awake
[2023-10-31 17:25] LABS: Digoxin 0.6 ng/ml (0.8-2.0)
[2023-10-31] MEDS: FLUSH (NSS) 1 FLUSH IV (20:48)
[2023-11-01] VITALS (8 sets, daily range): BP systolic 112–135; BP diastolic 68–103; BMI 40.3
--- NOTE | 2023-11-01 00:19 | PTCARENOTE ---
Received patient at change of shift this PM. AAOx3. VSS. NSR on the monitor. HR in the 70s-80s. INT patent. He denies chest pain, but admits to some discomfort to his right-sided neck. He was given Tylenol for this. See MAR. Plan of care discussed.
He is receptive to teaching and motivated. He understands that he is currently back into a NSR and that he may have to stay longer for additional diuresis. We discussed his medications. The patient and his family were educated at the bedside. He
denies pain and appears comfortable in bed at this time. Will continue to monitor.
[2023-11-01 06:17] LABS: Hematocrit 45.4 % (39.0-52.0); Hemoglobin 15.4 g/dL (13.0-18.0); Mean Corp Hgb Conc. 33.9 g/dL (33.0-37.0); Mean Corpuscular Hgb 26.9 pg (27.0-31.0); Mean Corpuscular Volume 79.4 fL (80.0-94.0); Mean Platelet Volume 10.3 fL (7.4-10.4); Platelet Count 267 10^3/uL (130-400); Red Blood Cell Count 5.72 10^6/uL (4.70-6.10); Red Cell Dist. Width 14.8 % (11.5-14.5); White Blood Cell Count 8.7 10^3/uL (4.8-10.8)
[2023-11-01 06:40] LABS: NT-proBNP 1020 pg/ml
[2023-11-01 06:53] LABS: ALT (SGPT) 86 U/L (0-50); AST (SGOT) 50 U/L (17-59); Alkaline Phosphatase 81 U/L (38-126); Blood Urea Nitrogen 24 mg/dl (9-20); Calcium 9.3 mg/dl (8.4-10.2); Carbon Dioxide 24 mmol/L (22-30); Chloride 100 mmol/L (98-107); Estimated Creatinine Clearance > 125 ml/min; Glucose 108 mg/dl (70-99); Magnesium 2.2 mg/dl (1.6-2.3); Potassium 3.9 mmol/L (3.5-5.1); Sodium 138 mmol/L (135-145); Total Protein 6.8 g/dl (6.3-8.2); eGFR > 60.00
--- NOTE | 2023-11-01 08:15 | W.PN.HOSP.TC ---
Today's Communication/Plan
-
cont diuresis
defer to cards re: when ready for d/c
Assessment / Plan
Assessment / Plan
pt is a 38 year old male
Acute hypoxic respiratory failure--suspect to be due to acute pulmonary edema, rapid atrial fibrillation, acute systolic heart failure exacerbation-- off O2
Acute heart failure with reduced EF exacerbation--continue IV Lasix. Echocardiogram shows LVEF 15 to 20%, global hypokinesis, estimated PA pressure 30 to 35 mmHg. Echo reading may not be reliable in setting of tachycardia. EF has dropped compared
to January 2022 echocardiogram which was 30 to 35% at the time--perhaps rate related?--weights decreasing but previous weights in 2021 were 114Kg-- will defer to cards re: d/c
Rapid atrial fibrillation -could not tolerate Cardizem due to hypotension. Digoxin started. Continue carvedilol--apprec cards-- Eliquis started, will continue. TSH normal.
CAMILO -creatinine improving-- consider restarting Entresto. Monitor renal function closely on diuresis. Bladder scan normal.
Troponin elevation -probably due to non-[place] troponin elevation due to acute illness.
Impaired fasting glucose -hemoglobin A1c 6.0%. Discussed with patient, weight loss is the gould.
PDA -status post closure 2 years ago, [facility].
Morbid obesity due to excess calories
Full code
Anticipated Discharge: 24 - 48 hours
Subjective/Interval History
-
Date of Service: November 01, 2023
pt without c/o
Objective Data
-
Labs:
Laboratory Results
11/01/23
05:47
WBC 8.7
Hgb 15.4
Hct 45.4
Plt Count 267
Sodium 138
Potassium 3.9
Chloride 100
Carbon Dioxide 24
BUN 24 H
Creatinine 1.0
Glucose 108 H
Calcium 9.3
Total Bilirubin 1.0
AST 50
ALT 86 H
Alkaline Phosphatase 81
Vital Signs:
max temp for 24 hours
10/27/23
16:16 10/31/23
05:06 11/01/23
05:25
Temp 98.3 F
Actual Weight 133 kg 132.5 kg
Vital Signs
Temp Pulse Resp BP Pulse Ox
98.1 F 80 18 125/100 98
11/01/23 08:12 11/01/23 05:25 11/01/23 08:12 11/01/23 05:25 11/01/23 08:12
I&O
10/31/23 11/01/23 11/02/23
06:59 06:59 06:59
Intake Total 240 / 240 240 / 240 240 / 240
Output Total 4800 / 4800 2200 / 2200
Balance -4560 / -4560 -1960 / -1960 240 / 240
Review of Systems
-
All other systems: Reviewed and negative
Physical Exam
-
General: Well Developed, Well Nourished and No Apparent Distress
HEENT: Normocephalic and Atraumatic
Respiratory: Clear to Auscultation; Negative Wheezes, Rales, Rhonchi or Crackles
Cardiac: Regular Rhythm and S1/S2; Negative Murmur
GI: Soft, Nontender, Nondistended and Normal Bowel Sounds
Musculoskeletal: No Clubbing, No Cyanosis and No Edema
Skin: Warm
Neuro: Awake
Psych: Calm
--- NOTE | 2023-11-01 08:18 | W.PN.CD ---
Today's Communication / Plan
-
cotninue iv diuresis
start Farxiga
decreased digoxin
Impression / Plan
-
Hx of CM w EF 40% and w PDA closure in 2021, followed at [facility] adult congenital clinic
-
Acute hypoxic respiratory failure
-CXR without overwhelming heart failure, but he is improving w diuresis
-VBG with metabolic acidosis, resolved
-needs OP sleep study
Atrial fibrillation with rapid ventricular response, new per patient --> S/p DCCV with mandaen of sinus rhythm
-Rates elevated, did not tolerate intravenous diltiazem due to BP falling ---> S/p ELVIS/DCCV 10/31/23
-continue digoxin given heart failure but will decrease dose.
-Oral Anticoagulation: None prior to arrival, started apixaban 5mg BID this admit, will need to remain on indefinitely
-[id number]: Score 1 as of now (Heart failure), but suspect underlying HTN given the degree of bp elevation prior to medications, so likely a 2
-TSH 3.67
-Sinus rhythm restored on 10/31
-Recommended rhythm control given CMY and symptoms, he would like to consider options as an outpatient.
HFrEF (EF 30-35% by TTE 2021), chronic TTE this admit showed EF of 15-20%
-He received diuresis Cr increased, but now has improved
-Volume status difficult on exam due to body habitus, but still well above dry weight
-GDMT as tolerated
-Beta-iglesia: Carvedilol 25 mg twice daily
-Aldosterone agonist: Can consider after recovery
-Sacubitril/valsartan: 97-103 mg twice daily ( on hold given renal function and diuresis)-resume when 'dry'.
-SGLT inhibitor: Farxiga 10 mg daily---Resume today
- Continue IV diuresis BID with intensive monitoring of labs and vitals
-Heart failure education as he recovers
-Trend daily weight, I/O, and BMP with diuresis
-echo 10/28/23 EF 15-20 global hypokinesis, mild MR, trace TR, PASP 30-35mmhg. LA volume severely abnormal > 48ml/m2)
CAMILO: creat 10/27 1.1 now 1.4 back to 1.1 resolving
Abnormal troponin, likely nonischemic myocardial injury in the setting of tachyarrhythmia
-Chest pain-free, peak troponin appears to be 0.041
Pulmonary HTN, moderate,
Fasting hyperglycemia, HgbA1c pending
PDA S/P occlusion
Obesity, BMI 40, he would benefit from weight loss, concern for KARAN, he denies prior outpatient sleep study
Discharge Planning
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
Subjective:
-feeling much better, no cp or sob
Physical Exam
Vital Signs/Labs
Vital Signs
Temp Pulse Resp BP Pulse Ox
98.1 F 80 18 125/100 98
11/01/23 08:12 11/01/23 05:25 11/01/23 08:12 11/01/23 05:25 11/01/23 08:12
10/31/23 11/01/23 11/02/23
06:59 06:59 06:59
Actual Weight 132.5 kg
11/01/23 05:47
11/01/23 05:47
Magnesium 2.2 mg/dl (1.6-2.3) 11/01/23 05:47
Triglycerides 136 mg/dl (10-149) 10/28/23 05:24
LDL Cholesterol, Calc 84 mg/dl 10/28/23 05:24
VLDL Cholesterol, Calc 27 mg/dl (0-30) 10/28/23 05:24
HDL Cholesterol 33 mg/dl 10/28/23 05:24
Digoxin Cancelled 10/31/23 11:55
10/27/23 11/01/23
15:40 05:47
Jov-A-Wkwqafkhgdr Pept 3530 1020
Physical Exam
Constitutional: No acute distress
EENT: Anicteric
Cardiovascular: Rhythm & rate is regular, Pedal edema is absent and Systolic murmur absent
Respiratory: Wheeze Absent, Crackles Absent, Rhonchi Absent and Other (increased dyspnea with just conversation )
GI: Soft and Non tender
Neuro/Psych: AO x 3
Data Reviewed
-
Date of Service: November 01, 2023
EKG: Other (tele sinus rhythm)
Medical Tests (PFT, Pathology etc): Discussed with Family (His was on the phone for our visit, d/w them the options for rhythm control and ongoing diuresis)
[2023-11-01] MEDS: LASIX 60 MG IV ×2 (09:38→15:56)
[2023-11-01] MEDS: ELIQUIS 5 MG PO ×2 (09:43→20:50)
[2023-11-01] MEDS: COREG 25 MG PO ×2 (09:43→20:49)
[2023-11-01] MEDS: FARXIGA 10 MG PO (09:43)
--- NOTE | 2023-11-01 10:45 | CM ---
Chart reviewed. Patient is independent of ADLS, lives with his in a 2 STH, 0 DANN, 0 DME. Plan is for the patient to return home when medically stable. Patient currently with no discharge needs. CM to follow
[2023-11-01] MEDS: LANOXIN 125 MCG PO (12:38)
[2023-11-01] MEDS: FLUSH (NSS) 1 FLUSH IV (20:50)
--- NOTE | 2023-11-02 02:48 | PTCARENOTE ---
Received patient at change of shift this PM. AAOx3. VSS. He is NSR on the monitor. HR in the 80s. INTx2 patent. He denies chest pain or discomfort. Plan of care discussed with patient and family at the bedside. He is receptive to teaching and
motivated. We discussed his medications and his plan for additional diuresis before discharge. He denies pain and appears comfortable in bed at this time. Will continue to monitor.
[2023-11-02 04:48] VITALS: BP 120/76
[2023-11-02 05:03] LABS: Hematocrit 45.5 % (39.0-52.0); Hemoglobin 15.5 g/dL (13.0-18.0); Mean Corp Hgb Conc. 34.1 g/dL (33.0-37.0); Mean Corpuscular Hgb 26.2 pg (27.0-31.0); Mean Platelet Volume 9.8 fL (7.4-10.4); Platelet Count 269 10^3/uL (130-400); Red Blood Cell Count 5.91 10^6/uL (4.70-6.10); Red Cell Dist. Width 14.8 % (11.5-14.5); White Blood Cell Count 8.5 10^3/uL (4.8-10.8)
[2023-11-02 05:42] LABS: ALT (SGPT) 88 U/L (0-50); AST (SGOT) 44 U/L (17-59); Albumin 4.2 g/dl (3.5-5.0); Alkaline Phosphatase 90 U/L (38-126); Blood Urea Nitrogen 25 mg/dl (9-20); Calcium 9.5 mg/dl (8.4-10.2); Carbon Dioxide 28 mmol/L (22-30); Chloride 98 mmol/L (98-107); Estimated Creatinine Clearance > 125 ml/min; Glucose 102 mg/dl (70-99); Magnesium 2.4 mg/dl (1.6-2.3); Potassium 3.7 mmol/L (3.5-5.1); Sodium 139 mmol/L (135-145); Total Bilirubin 0.9 mg/dl (0.2-1.3); eGFR > 60.00
[2023-11-02 06:00] VITALS: BMI 40.0
[2023-11-02 07:13] VITALS: BP 115/84
--- NOTE | 2023-11-02 08:11 | W.PN.CD ---
Addendum entered and electronically signed by Leanna Emerson MD 11/02/23 09:20:
ECG reviewed QTC 432 on my manual measurement will start Tikosyn.
Original Note:
Today's Communication / Plan
-
ECG now for possible Tikosyn loading
continue diuresis
Impression / Plan
-
Hx of CM w EF 40% and w PDA closure in 2021, followed at [facility] adult congenital clinic
-
Acute hypoxic respiratory failure
-CXR without overwhelming heart failure, but he is improving w diuresis
-VBG with metabolic acidosis, resolved
-needs OP sleep study
Atrial fibrillation with rapid ventricular response, new per patient --> S/p DCCV with jain of sinus rhythm
-Rates elevated, did not tolerate intravenous diltiazem due to BP falling ---> S/p ELVIS/DCCV 10/31/23
-continue digoxin given heart failure but will decrease dose.
-Oral Anticoagulation: None prior to arrival, started apixaban 5mg BID this admit, will need to remain on indefinitely
-[id number]: Score 1 as of now (Heart failure), but suspect underlying HTN given the degree of bp elevation prior to medications, so likely a 2
-TSH 3.67
-Sinus rhythm restored on 10/31
-Recommended rhythm control given CMY and symptoms, he is now agreeable to possible Tikosyn initiation if candidate
-Check ECG and QTc now
HFrEF (EF 30-35% by TTE 2021), chronic TTE this admit showed EF of 15-20%
-He received diuresis Cr increased, but now has improved
-Volume status difficult on exam due to body habitus, but still well above dry weight
-GDMT as tolerated
-Beta-iglesia: Carvedilol 25 mg twice daily
-Aldosterone agonist: Can consider after recovery
-Sacubitril/valsartan: 97-103 mg twice daily ( on hold given renal function and diuresis)-resume when 'dry'.
-SGLT inhibitor: Farxiga 10 mg daily---Resume today
- Continue IV diuresis BID with intensive monitoring of labs and vitals
-Heart failure education as he recovers
-Trend daily weight, I/O, and BMP with diuresis
-echo 10/28/23 EF 15-20 global hypokinesis, mild MR, trace TR, PASP 30-35mmhg. LA volume severely abnormal > 48ml/m2)
CAMILO: creat 10/27 1.1 now 1.4 back to 1.1 stable continue to monitor with ongoing diuresis
Abnormal troponin, likely nonischemic myocardial injury in the setting of tachyarrhythmia
-Chest pain-free, peak troponin appears to be 0.041
Pulmonary HTN, moderate,
Fasting hyperglycemia, HgbA1c pending
PDA S/P occlusion
Obesity, BMI 40, he would benefit from weight loss, concern for KARAN, he denies prior outpatient sleep study
Discharge Planning
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
Subjective:
-feeling much better, no cp or sob. 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
Physical Exam
Vital Signs/Labs
Vital Signs
Temp Pulse Resp BP Pulse Ox
98 F 76 16 120/76 98
11/02/23 07:12 11/02/23 07:12 11/02/23 07:12 11/02/23 04:48 11/02/23 07:12
11/01/23 11/02/23 11/03/23
06:59 06:59 06:59
Actual Weight 130 kg
11/02/23 04:44
11/02/23 04:44
Magnesium 2.4 mg/dl (1.6-2.3) H 11/02/23 04:44
Triglycerides 136 mg/dl (10-149) 10/28/23 05:24
LDL Cholesterol, Calc 84 mg/dl 10/28/23 05:24
VLDL Cholesterol, Calc 27 mg/dl (0-30) 10/28/23 05:24
HDL Cholesterol 33 mg/dl 10/28/23 05:24
Digoxin Cancelled 10/31/23 11:55
10/27/23 11/01/23
15:40 05:47
Xba-K-Ukneoyajdff Pept 3530 1020
Physical Exam
Constitutional: No acute distress
Cardiovascular: Rhythm & rate is regular, Pedal edema is absent, Systolic murmur absent and Diastolic murmur absent
Respiratory: Respiratory effort normal, Lungs clear to auscul., Wheeze Absent, Crackles Absent and Rhonchi Absent
Neuro/Psych: AO x 3
Data Reviewed
-
Date of Service: November 02, 2023
EKG: Other (sinus)
[2023-11-02] MEDS: ELIQUIS 5 MG PO ×2 (09:00→20:08)
[2023-11-02] MEDS: FARXIGA 10 MG PO (09:01)
[2023-11-02] MEDS: LASIX 60 MG IV ×2 (09:01→15:58)
--- NOTE | 2023-11-02 09:18 | W.PN.HOSP.TC ---
Today's Communication/Plan
-
Tikosyn load and diuresis
Assessment / Plan
Assessment / Plan
pt is a 38 year old male
Acute hypoxic respiratory failure--suspect to be due to acute pulmonary edema, rapid atrial fibrillation, acute systolic heart failure exacerbation--resolved, off O2
Acute heart failure with reduced EF exacerbation--continue IV Lasix. Echocardiogram shows LVEF 15 to 20%, global hypokinesis, estimated PA pressure 30 to 35 mmHg. Echo reading may not be reliable in setting of tachycardia. EF has dropped compared
to January 2022 echocardiogram which was 30 to 35% at the time--perhaps rate related?--weights decreasing but previous weights in 2021 were 114Kg-- pt agreeable to start Tikosyn
Rapid atrial fibrillation -could not tolerate Cardizem due to hypotension. Digoxin started. Continue carvedilol--apprec cards-- Eliquis started, will continue. TSH normal.
CAMILO -creatinine improving-- consider restarting Entresto. Monitor renal function closely on diuresis. Bladder scan normal.
Troponin elevation -probably due to non-[place] troponin elevation due to acute illness.
Impaired fasting glucose -hemoglobin A1c 6.0%. Discussed with patient, weight loss is the gould.
PDA -status post closure 2 years ago, [facility].
Morbid obesity due to excess calories
Full code
Anticipated Discharge: > 48 hours
Subjective/Interval History
-
Date of Service: November 02, 2023
pt agreeable to starting Tikosyn and continued diuresis
Objective Data
-
Labs:
Laboratory Results
11/02/23
04:44
WBC 8.5
Hgb 15.5
Hct 45.5
Plt Count 269
Sodium 139
Potassium 3.7
Chloride 98
Carbon Dioxide 28
BUN 25 H
Creatinine 1.1
Glucose 102 H
Calcium 9.5
Total Bilirubin 0.9
AST 44
ALT 88 H
Alkaline Phosphatase 90
Vital Signs:
Selected Entries
10/27/23
16:16 11/02/23
06:00
Actual Weight 133 kg 130 kg
Vital Signs
Temp Pulse Resp BP Pulse Ox
98 F 69 16 115/84 98
11/02/23 07:12 11/02/23 09:01 11/02/23 07:12 11/02/23 09:01 11/02/23 07:12
I&O
11/01/23 11/02/23 11/03/23
06:59 06:59 06:59
Intake Total 240 / 240 1560 / 1560
Output Total 2200 / 2200 2400 / 2400
Balance -1960 / -1960 -840 / -840
Review of Systems
-
All other systems: Reviewed and negative
Physical Exam
-
General: Well Developed, Well Nourished and No Apparent Distress
HEENT: Normocephalic and Atraumatic; Negative Oxygen
Respiratory: Clear to Auscultation; Negative Wheezes or Rhonchi
Cardiac: Regular Rhythm and S1/S2; Negative Murmur
GI: Soft, Nontender, Nondistended and Normal Bowel Sounds
Musculoskeletal: No Clubbing and No Cyanosis; Negative No Edema (trace edema bilaterally)
Skin: Warm
Neuro: Awake
Psych: Calm
--- NOTE | 2023-11-02 09:20 | W.CARD.TIKOS ---
Initiate Tikosyn
-
I verify that the patient has not taken any verapamil (Isoptin/Calan), ketoconazole (Nizoral), cimetidine (Tagamet), trimethoprim (Trimpex), trimethoprim/sulfamethoxazole (Bactrim), megesterol (Megace), prochlorperazine (Compazine),
hydrochlorothiazide (HCTZ), dolutegravir (Tivicay) or any Class I or Class III anti-arrhythmic within the last three days
AND
I verify that the patient has not taken amiodarone within the last THREE months, or that the patient's amiodarone plasma concentration is <0.3 mcg/mL.
Creatinine 1.1 mg/dL (0.7-1.3) 11/02/23 04:44
Estimated Creat Clear > 125 ml/min 11/02/23 04:44
Does patient have a Ventricular Conduction Abnormality: No
I have assessed the baseline QTc interval (using QT for heart rate less than 60 bpm) and deemed the patient is appropriate for Dofetilide therapy. I understand that Tikosyn is contraindicated if the QTc is >440msec (500msec in patients with
ventricular conduction abnormalities).
Baseline QTc (in msec): 432
QTc interval is greater than 440msec without conduction abnormality OR greater than 500msec with a conduction abnormality, but acceptable to proceed per Cardiology attending.
Ordering Physician: Robyn Emerson
[2023-11-02] MEDS: COREG 25 MG PO ×2 (09:24→20:08)
[2023-11-02] MEDS: TIKOSYN 500 MCG PO ×2 (10:00→22:04)
--- NOTE | 2023-11-02 11:09 | CM ---
Pricing on Dofetilide through patient's prescription plan was $40 for a 90 day supply. Patient's [facility] does have Dofetilide 500 mcq in stock. I will follow up on day of discharge to confirm. CM to follow
[2023-11-02 11:37] VITALS: BP 106/72
[2023-11-02] MEDS: LANOXIN 125 MCG PO (13:09)
[2023-11-02 15:18] VITALS: BP 114/79
[2023-11-02 18:44] VITALS: BP 122/78
[2023-11-02 23:07] VITALS: BP 120/81
--- NOTE | 2023-11-02 23:40 | PTCARENOTE ---
Received at start of shift, HR SR 60s-80s. BP stable. Pt in bed with members of christian at bedside. Tikosyn dose #2 administered, QTc 477. Reinforced antiarrhythmic nature of drug with pt. Pt denies any CP, SOB, lightheadedness/dizziness at this
time. Call horton within reach.
Pt requesting medical records, especially EKG reports, to be sent to primary frog or oyster farmworker at [facility] in [facility].
[2023-11-03 04:22] VITALS: BP 128/79
[2023-11-03 04:36] VITALS: BMI 39.9
[2023-11-03 04:46] LABS: Hematocrit 45.8 % (39.0-52.0); Hemoglobin 15.8 g/dL (13.0-18.0); Mean Corp Hgb Conc. 34.5 g/dL (33.0-37.0); Mean Corpuscular Hgb 26.6 pg (27.0-31.0); Mean Platelet Volume 10.1 fL (7.4-10.4); Platelet Count 264 10^3/uL (130-400); Red Blood Cell Count 5.95 10^6/uL (4.70-6.10); Red Cell Dist. Width 14.9 % (11.5-14.5); White Blood Cell Count 7.9 10^3/uL (4.8-10.8)
[2023-11-03 05:20] LABS: Blood Urea Nitrogen 26 mg/dl (9-20); Calcium 9.5 mg/dl (8.4-10.2); Carbon Dioxide 29 mmol/L (22-30); Chloride 98 mmol/L (98-107); Estimated Creatinine Clearance > 125 ml/min; Glucose 101 mg/dl (70-99); Magnesium 2.6 mg/dl (1.6-2.3); Potassium 3.6 mmol/L (3.5-5.1); Sodium 137 mmol/L (135-145); eGFR > 60.00
[2023-11-03 07:52] VITALS: BP 132/95
--- NOTE | 2023-11-03 07:53 | W.PN.CD ---
Today's Communication / Plan
-
continue tikosyn at current dosing
stop dig
start entresto tomorrow am
Impression / Plan
-
Hx of CM w EF 40% and w PDA closure in 2021, followed at [facility] adult congenital clinic
-
Acute hypoxic respiratory failure
-CXR without overwhelming heart failure, but he is improving w diuresis
-VBG with metabolic acidosis, resolved
-needs OP sleep study
Atrial fibrillation with rapid ventricular response, new per patient --> S/p DCCV with gnosticism of sinus rhythm
-Rates elevated, did not tolerate intravenous diltiazem due to BP falling ---> S/p ELVIS/DCCV 10/31/23
-will stop digoxin
-Oral Anticoagulation: None prior to arrival, started apixaban 5mg BID this admit, will need to remain on indefinitely
-[id number]: Score 1 as of now (Heart failure), but suspect underlying HTN given the degree of bp elevation prior to medications, so likely a 2
-TSH 3.67
-Sinus rhythm restored on 10/31
-Recommended rhythm control given CMY and symptoms, he is now agreeable to possible Tikosyn initiation if candidate
-Tikosyn started: QTc stable. Continue current dose
HFrEF (EF 30-35% by TTE 2021), chronic TTE this admit showed EF of 15-20%
-He received diuresis Cr increased, but now has improved
-Volume status difficult on exam due to body habitus, but still well above dry weight
-GDMT as tolerated
-Beta-iglesia: Carvedilol 25 mg twice daily
-Aldosterone agonist: Can consider after recovery
-Sacubitril/valsartan: 97-103 mg twice daily ( on hold given renal function and diuresis)-resume tomorrow
-SGLT inhibitor: Farxiga 10 mg daily---Resume today
- Continue IV diuresis BID with intensive monitoring of labs and vitals
-Heart failure education as he recovers
-Trend daily weight, I/O, and BMP with diuresis
-echo 10/28/23 EF 15-20 global hypokinesis, mild MR, trace TR, PASP 30-35mmhg. LA volume severely abnormal > 48ml/m2)
CAMILO: creat 10/27 1.1 now 1.4 back to 1.1 stable continue to monitor with ongoing diuresis
Abnormal troponin, likely nonischemic myocardial injury in the setting of tachyarrhythmia
-Chest pain-free, peak troponin appears to be 0.041
Pulmonary HTN, moderate,
Fasting hyperglycemia, HgbA1c pending
PDA S/P occlusion
Obesity, BMI 40, he would benefit from weight loss, concern for KARAN, he denies prior outpatient sleep study
Discharge Planning
Tikosyn loading, will be complete late tomorrow, likely discharge tuesday evening vs Sat am
Subjective:
-feeling much better, no cp or sob.
Physical Exam
Vital Signs/Labs
Vital Signs
Temp Pulse Resp BP Pulse Ox
98 F 76 18 128/79 97
11/03/23 04:22 11/03/23 04:22 11/03/23 04:22 11/03/23 04:22 11/03/23 04:22
11/02/23 11/03/23 11/04/23
06:59 06:59 06:59
Actual Weight 130 kg 129.6 kg
11/03/23 04:31
11/03/23 04:31
Magnesium 2.6 mg/dl (1.6-2.3) H 11/03/23 04:31
Triglycerides 136 mg/dl (10-149) 10/28/23 05:24
LDL Cholesterol, Calc 84 mg/dl 10/28/23 05:24
VLDL Cholesterol, Calc 27 mg/dl (0-30) 10/28/23 05:24
HDL Cholesterol 33 mg/dl 10/28/23 05:24
Digoxin Cancelled 10/31/23 11:55
10/27/23 11/01/23
15:40 05:47
Dpn-V-Nkucmgwvdfk Pept 3530 1020
Physical Exam
Constitutional: No acute distress
Cardiovascular: Rhythm & rate is regular, Pedal edema is absent, JVD pressure is normal, Systolic murmur absent and Diastolic murmur absent
Respiratory: Respiratory effort normal, Lungs clear to auscul., Wheeze Absent, Crackles Absent and Rhonchi Absent
GI: Soft
Neuro/Psych: AO x 3
Data Reviewed
-
Date of Service: November 03, 2023
EKG: Tracing Personally Visualized and interpreted (sinus with stable qtc)
Medical Tests (PFT, Pathology etc): Discussed with Nurse (change timing of dofetilide to 1 hour earlier)
--- NOTE | 2023-11-03 08:09 | W.PN.HOSP.TC ---
Today's Communication/Plan
-
cont Tikosyn loading
Assessment / Plan
Assessment / Plan
pt is a 38 year old male
Acute hypoxic respiratory failure--suspect to be due to acute pulmonary edema, rapid atrial fibrillation, acute systolic heart failure exacerbation--resolved, off O2
Acute heart failure with reduced EF exacerbation--continue IV Lasix. Echocardiogram shows LVEF 15 to 20%, global hypokinesis, estimated PA pressure 30 to 35 mmHg--EF has dropped compared to January 2022 echocardiogram which was 30 to 35% at the
time--perhaps rate related?--weights decreasing but previous weights in 2021 were 114Kg-- Tikosyn loading--Entresto cont, farxiga started too
Rapid atrial fibrillation -could not tolerate Cardizem due to hypotension. Digoxin started. Continue carvedilol--apprec cards-- Eliquis started, will continue. TSH normal.
CAMILO -creatinine improving-- Entresto cont, farxiga started too Monitor renal function closely on diuresis. Bladder scan normal.
Troponin elevation -probably due to non-[place] troponin elevation due to acute illness.
Impaired fasting glucose -hemoglobin A1c 6.0%. Discussed with patient, weight loss is the gould.
PDA -status post closure 2 years ago, [facility].
Morbid obesity due to excess calories
Full code
Anticipated Discharge: 24 - 48 hours
Subjective/Interval History
-
Date of Service: November 03, 2023
pt without c/o
Objective Data
-
Labs:
Laboratory Results
11/03/23
04:31
WBC 7.9
Hgb 15.8
Hct 45.8
Plt Count 264
Sodium 137
Potassium 3.6
Chloride 98
Carbon Dioxide 29
BUN 26 H
Creatinine 1.1
Glucose 101 H
Calcium 9.5
Vital Signs:
max temp for 24 hours
11/02/23
19:25
Temp 98.3 F
Vital Signs
Temp Pulse Resp BP Pulse Ox
97.7 F 76 20 128/79 97
11/03/23 07:47 11/03/23 04:22 11/03/23 07:47 11/03/23 04:22 11/03/23 07:47
I&O
11/02/23 11/03/23 11/04/23
06:59 06:59 06:59
Intake Total 1560 / 1560 660 / 660
Output Total 2400 / 2400 2400 / 2400
Balance -840 / -840 -1740 / -1740
Review of Systems
-
All other systems: Reviewed and negative
Physical Exam
-
General: Well Developed, Well Nourished and No Apparent Distress
HEENT: Normocephalic and Atraumatic
Respiratory: Clear to Auscultation; Negative Wheezes or Rhonchi
Cardiac: Regular Rhythm and S1/S2; Negative Murmur
GI: Soft, Nontender, Nondistended and Normal Bowel Sounds
Musculoskeletal: No Clubbing and No Cyanosis; Negative No Edema (trace to 1+ edema bilaterally)
Skin: Warm
Neuro: Awake
[2023-11-03] MEDS: ELIQUIS 5 MG PO ×2 (08:37→19:44)
[2023-11-03] MEDS: COREG 25 MG PO ×2 (08:37→19:44)
[2023-11-03] MEDS: TIKOSYN 500 MCG PO ×2 (08:37→21:04)
[2023-11-03] MEDS: FARXIGA 10 MG PO (08:37)
[2023-11-03] MEDS: LASIX 60 MG IV ×2 (08:38→16:27)
--- NOTE | 2023-11-03 11:28 | CM ---
Pricing on Eliquis 5 mg BID though the the patient's PP is $40 a month, the patient has commercial insurance. $10 a month co pay card was placed in the patient's red discharge folder.
[2023-11-03 12:35] VITALS: BP 122/84
[2023-11-03] MEDS: LANOXIN 125 MCG PO (13:10)
[2023-11-03 16:17] VITALS: BP 141/84
[2023-11-03 18:45] VITALS: BP 132/85
[2023-11-03 22:12] VITALS: BP 136/78
[2023-11-04] VITALS (8 sets, daily range): BP systolic 81–137; BP diastolic 47–73; BMI 39.7
--- NOTE | 2023-11-04 00:27 | PTCARENOTE ---
Pt received at start of shift. HR SR/SB 50s-80s. Pt OOB with and daughter at bedside. 4th tikosyn dose administered, QTc 438. Reinforced purpose of Tikosyn with pt. Educated pt on possible side effects of medication and why we are monitoring pt
during the first few doses. Pt states no further questions. Pt denies any SOB, lightheadedness, or dizziness at this time. Call horton within reach.
[2023-11-04 05:36] LABS: Hematocrit 45.4 % (39.0-52.0); Hemoglobin 15.5 g/dL (13.0-18.0); Mean Corp Hgb Conc. 34.1 g/dL (33.0-37.0); Mean Corpuscular Hgb 26.6 pg (27.0-31.0); Mean Corpuscular Volume 77.9 fL (80.0-94.0); Platelet Count 283 10^3/uL (130-400); Red Blood Cell Count 5.83 10^6/uL (4.70-6.10); Red Cell Dist. Width 15.1 % (11.5-14.5); White Blood Cell Count 9.9 10^3/uL (4.8-10.8)
[2023-11-04 06:13] LABS: NT-proBNP 219 pg/ml
[2023-11-04 06:16] LABS: ALT (SGPT) 75 U/L (0-50); AST (SGOT) 37 U/L (17-59); Albumin 4.3 g/dl (3.5-5.0); Alkaline Phosphatase 88 U/L (38-126); Blood Urea Nitrogen 29 mg/dl (9-20); Calcium 9.6 mg/dl (8.4-10.2); Carbon Dioxide 28 mmol/L (22-30); Chloride 96 mmol/L (98-107); Estimated Creatinine Clearance 117 ml/min; Glucose 102 mg/dl (70-99); Magnesium 2.7 mg/dl (1.6-2.3); Sodium 138 mmol/L (135-145); Total Protein 7.4 g/dl (6.3-8.2); eGFR > 60.00
--- NOTE | 2023-11-04 07:47 | W.PN.CD ---
Today's Communication / Plan
-
continue tikosyn load
start entresto
continue diuresis
Impression / Plan
-
Hx of CM w EF 40% and w PDA closure in 2021, followed at [facility] adult congenital clinic
-
Acute hypoxic respiratory failure
-CXR without overwhelming heart failure, but he is improving w diuresis
-VBG with metabolic acidosis, resolved
-needs OP sleep study
Atrial fibrillation with rapid ventricular response, new per patient --> S/p DCCV with protestant of sinus rhythm
-Rates elevated, did not tolerate intravenous diltiazem due to BP falling ---> S/p ELVIS/DCCV 10/31/23
-Oral Anticoagulation: None prior to arrival, started apixaban 5mg BID this admit, will need to remain on indefinitely
-[id number]: Score 1 as of now (Heart failure), but suspect underlying HTN given the degree of bp elevation prior to medications, so likely a 2
-TSH 3.67
-Sinus rhythm restored on 10/31
-Recommended rhythm control given CMY and symptoms, he is now agreeable to possible Tikosyn initiation if candidate
-Tikosyn started: QTc stable. Continue current dose
HFrEF (EF 30-35% by TTE 2021), chronic TTE this admit showed EF of 15-20%
-He received diuresis Cr increased, but now stable at 1.2
-(-2400) overnight
-Volume status difficult on exam due to body habitus, but still well above dry weight
-GDMT as tolerated
-Beta-iglesia: Carvedilol 25 mg twice daily
-Aldosterone agonist: Can consider after recovery
-Sacubitril/valsartan: 97-103 mg twice daily ( on hold given renal function and diuresis)-resume today
-SGLT inhibitor: Farxiga 10 mg daily---Resumed
- Continue IV diuresis BID with intensive monitoring of labs and vitals
-if plan is for discharge tomorrow, would continue furosemide 60mg po bid until he sees outpatient cardiology or reaches his dry weight. renal profile at 5 days
-Heart failure education as he recovers
-Trend daily weight, I/O, and BMP with diuresis
-echo 10/28/23 EF 15-20 global hypokinesis, mild MR, trace TR, PASP 30-35mmhg. LA volume severely abnormal > 48ml/m2)
CAMILO: creat 10/27 1.1 now 1.4 back to 1.1 stable continue to monitor with ongoing diuresis
Abnormal troponin, likely nonischemic myocardial injury in the setting of tachyarrhythmia
-Chest pain-free, peak troponin appears to be 0.041
Pulmonary HTN, moderate,
Fasting hyperglycemia, HgbA1c pending
PDA S/P occlusion
Obesity, BMI 40, he would benefit from weight loss, concern for KARAN, he denies prior outpatient sleep study
Discharge Planning
Tikosyn loading, will be complete late tomorrow, likely discharge tuesday evening vs Sat am
Subjective:
-feeling much better, no cp or sob.
Physical Exam
Vital Signs/Labs
Vital Signs
Temp Pulse Resp BP Pulse Ox
97.6 F 55 20 136/78 94
11/04/23 07:27 11/04/23 01:00 11/04/23 07:27 11/03/23 22:12 11/04/23 07:27
11/03/23 11/04/23 11/05/23
06:59 06:59 06:59
Actual Weight 129.6 kg 129.2 kg
11/04/23 05:24
11/04/23 05:24
Magnesium 2.7 mg/dl (1.6-2.3) H 11/04/23 05:24
Triglycerides 136 mg/dl (10-149) 10/28/23 05:24
LDL Cholesterol, Calc 84 mg/dl 10/28/23 05:24
VLDL Cholesterol, Calc 27 mg/dl (0-30) 10/28/23 05:24
HDL Cholesterol 33 mg/dl 10/28/23 05:24
Digoxin Cancelled 10/31/23 11:55
10/27/23 11/01/23 11/04/23
15:40 05:47 05:24
Crm-G-Mbqcbnvitww Pept 3530 1020 219
Physical Exam
Constitutional: No acute distress
Cardiovascular: Rhythm & rate is regular, Pedal edema is absent, JVD pressure is normal, Systolic murmur absent, Diastolic murmur absent and Rhythm/rate is irregular
Respiratory: Respiratory effort normal, Lungs clear to auscul., Wheeze Absent, Crackles Absent and Rhonchi Absent
Neuro/Psych: AO x 3
Data Reviewed
-
Date of Service: November 04, 2023
EKG: Tracing Personally Visualized and interpreted (11/03/23 NSR with LVH, QTC 438)
Medical Tests (PFT, Pathology etc): Discussed with Physician (Dr Lopez if home tomorrow would send on bid lasix) and Discussed with Nurse (continue current tikosyn dose)
[2023-11-04] MEDS: ENTRESTO 24 MG/26 MG 1 TAB PO ×2 (07:59→19:36)
[2023-11-04] MEDS: FARXIGA 10 MG PO (07:59)
[2023-11-04] MEDS: ELIQUIS 5 MG PO ×2 (08:00→19:36)
[2023-11-04] MEDS: COREG 25 MG PO ×2 (08:00→19:36)
[2023-11-04] MEDS: LASIX 60 MG IV ×2 (08:01→16:35)
--- NOTE | 2023-11-04 08:06 | W.PN.HOSP.TC ---
Today's Communication/Plan
-
d/c when cleared by cards
Assessment / Plan
Assessment / Plan
pt is a 38 year old male
Acute hypoxic respiratory failure--suspect to be due to acute pulmonary edema, rapid atrial fibrillation, acute systolic heart failure exacerbation--resolved, off O2
Acute heart failure with reduced EF exacerbation--continue IV Lasix. Echocardiogram shows LVEF 15 to 20%, global hypokinesis, estimated PA pressure 30 to 35 mmHg--EF has dropped compared to January 2022 echocardiogram which was 30 to 35% at the
time--perhaps rate related?--weights decreasing but previous weights in 2021 were 114Kg, pro BNP now is 219-- Tikosyn loading--Entresto cont, farxiga started too
Rapid atrial fibrillation -could not tolerate Cardizem due to hypotension. Digoxin started. Continue carvedilol--apprec cards-- Eliquis started, will continue. TSH normal.
CAMILO -creatinine improving-- Entresto cont, farxiga started too Monitor renal function closely on diuresis. Bladder scan normal.
Troponin elevation -probably due to non-[place] troponin elevation due to acute illness.
Impaired fasting glucose -hemoglobin A1c 6.0%. Discussed with patient, weight loss is the gould.
PDA -status post closure 2 years ago, [facility].
Morbid obesity due to excess calories
Full code
d/c when cleared by cards
Anticipated Discharge: Within 24 hours
Subjective/Interval History
-
Date of Service: November 04, 2023
pt without c/o
Objective Data
-
Labs:
Laboratory Results
11/04/23
05:24
WBC 9.9
Hgb 15.5
Hct 45.4
Plt Count 283
Sodium 138
Potassium 4.0
Chloride 96 L
Carbon Dioxide 28
BUN 29 H
Creatinine 1.2
Glucose 102 H
Calcium 9.6
Total Bilirubin 1.0
AST 37
ALT 75 H
Alkaline Phosphatase 88
Vital Signs:
max temp for 24 hours
11/03/23
16:15
Temp 98.7 F
Vital Signs
Temp Pulse Resp BP Pulse Ox
97.6 F 69 20 137/69 94
11/04/23 07:27 11/04/23 08:00 11/04/23 07:27 11/04/23 08:00 11/04/23 07:27
I&O
11/03/23 11/04/23 11/05/23
06:59 06:59 06:59
Intake Total 660 / 660
Output Total 2400 / 2400 2400 / 2400
Balance -1740 / -1740 -2400 / -2400
Review of Systems
-
All other systems: Reviewed and negative
Physical Exam
-
General: Well Developed, Well Nourished and No Apparent Distress
HEENT: Normocephalic and Atraumatic
Respiratory: Clear to Auscultation; Negative Wheezes or Rhonchi
Cardiac: Regular Rhythm and S1/S2; Negative Murmur
GI: Soft, Nontender, Nondistended and Normal Bowel Sounds
Musculoskeletal: No Clubbing, No Cyanosis and No Edema
Neuro: Awake
--- NOTE | 2023-11-04 09:00 | PTCARENOTE ---
Assumed care of pt from night RN. Pt received awake and alert, Ox3. VSs, CM shows NSR 60's, POX 94% on RA. Dose #5 of Tikosyn given, repeat EKG due at 1130. Moist occasional cough noted as well as CORRAL. Pt denies any pain or discomfort.
Probable D/C tomorrow am.
[2023-11-04] MEDS: TIKOSYN 500 MCG PO ×2 (09:26→20:59)
--- NOTE | 2023-11-04 11:41 | PTCARENOTE ---
Qtc after 5th dose of Tikosyn is 449.
[2023-11-04] MEDS: LANOXIN 125 MCG PO (12:36)
--- NOTE | 2023-11-04 13:01 | CM ---
Chart reviewed. Patient is independent of ADLS, lives with his in a 2 S[address], 0 DANN, 0 DME. I called the patient's [facility] and they do have Dofetilide 500 mcq in stock. The patient should receive a 3 day supply from the hospital
before discharge. Plan is for the patient to return home. CM to follow
--- NOTE | 2023-11-04 23:40 | PTCARENOTE ---
Pt rec'd at change of shift with family at bedside. Pt offers no complaints. rsp even and unlabored, lungs clear. Sinus on telemetry. 6th dose of Tikosyn given.
[2023-11-05 04:45] VITALS: BP 101/57
[2023-11-05 04:49] VITALS: BMI 39.7
[2023-11-05 07:39] VITALS: BP 112/76
--- NOTE | 2023-11-05 08:32 | W.PN.HOSP.TC ---
Today's Communication/Plan
-
dc
Assessment / Plan
Assessment / Plan
pt is a 38 year old male
Acute hypoxic respiratory failure--suspect to be due to acute pulmonary edema, rapid atrial fibrillation, acute systolic heart failure exacerbation--resolved, off O2
Acute heart failure with reduced EF exacerbation--continue IV Lasix. Echocardiogram shows LVEF 15 to 20%, global hypokinesis, estimated PA pressure 30 to 35 mmHg--EF has dropped compared to January 2022 echocardiogram which was 30 to 35% at the
time--perhaps rate related?--weights decreasing but previous weights in 2021 were 114Kg, pro BNP now is 219-- Tikosyn loading--Entresto cont, farxiga started too
Rapid atrial fibrillation -could not tolerate Cardizem due to hypotension. Digoxin started. Continue carvedilol--apprec cards-- Eliquis started, will continue. TSH normal.
CAMILO -creatinine improved to his baseline-- Entresto cont, farxiga started too Monitor renal function closely on diuresis. Bladder scan normal.
Troponin elevation -probably due to non-[place] troponin elevation due to acute illness.
Impaired fasting glucose -hemoglobin A1c 6.0%. Discussed with patient, weight loss is the gould.
PDA -status post closure 2 years ago, [facility].
Morbid obesity due to excess calories
Full code
Symptomatically stable for discharge.
DC home after seen by cardiology.
Discussed with the patient about medication changes. He normally goes to [facility] cardiology for follow-up.
Total time of dc 32 min
Anticipated Discharge: Today
Subjective/Interval History
-
Date of Service: November 05, 2023
Patient voices no specific complaints.
Denies sore chest pain, palpitation or shortness of breath.
Objective Data
-
Vital Signs:
Vital Signs
Temp Pulse Resp BP Pulse Ox
97.5 F 65 16 101/57 98
11/05/23 07:38 11/05/23 07:38 11/05/23 07:38 11/05/23 04:45 11/05/23 07:38
I&O
11/04/23 11/05/23 11/06/23
06:59 06:59 06:59
Intake Total 240 / 240
Output Total 2400 / 2400 2850 / 2850
Balance -2400 / -2400 -2610 / -2610
Review of Systems
-
Constitutional: Denies Fever
Respiratory: Denies Cough
Abdomen/GI: Denies Abdominal Pain, Nausea or Vomiting
Neuro: Denies Dizzy
Physical Exam
-
General: No Apparent Distress
HEENT: Moist Mucous Membranes
Respiratory: Clear to Auscultation
Cardiac: Regular Rhythm and S1/S2
GI: Soft
Neuro: AO x 3
Psych: Calm
Data Reviewed
-
Labs: Labs Reviewed by me
--- NOTE | 2023-11-05 08:35 | W.DCSUMMARY ---
Discharge Summary
Discharge Data
Date of Admission: 10/27/23
Date of Discharge: 11/05/23
-
Pending Results: No
Hospital Course
Primary diagnosis:
Acute hypoxic respiratory failure
Acute heart failure with reduced ejection fraction exacerbation
Paroxysmal atrial fibrillation
Acute kidney injury
Secondary diagnosis:
Patent ductus arteriosus s/p surgery(Follow at [facility] Dr Dr. Brunner)
Hospital course:
pt is a 38 year old male with type B PDA closure and follows at [facility] presented with palpitation and noted to be in rapid atrial fibrillation.
He is known to have heart failure with reduced EF, pulmonary hypertension and also paroxysmal atrial fibrillation but not on anticoagulation.
With rapid atrial fibrillation he had transient hypoxia from heart failure which all resolved with treatment. He lost 9 pounds prior to discharge. He had a ELVIS cardioversion. His echo showed EF of 50 to 20% which is down from 30 to 35% in the
past.
He was initiated on anticoagulation, loaded with Tikosyn and digoxin was added as well. He was kept on Entresto and the dose of Lasix was increased. He was already on Coreg and Farxiga which was continued. He was on low-dose losartan which was
felt not required as he was on Entresto. He had transient elevation of creatinine to 1.4 from his baseline of 1.1 which normalized as well.
Once he was medically stable he was discharged home.
Consultants on board:
Cardiology Dr Benjamin
Discharge Plan
-
Patient Disposition: Home (Routine Discharge)
Discharge Diagnosis/Procedures: Acute hypoxemic respiratory failure, acute systolic congestive heart failure exacerbation, rapid atrial fibrillation, acute kidney injury, troponin elevation, impaired fasting glucose, patent ductus arteriosus status
postclosure 2 years ago, morbid obesity
Condition: Good
Diet: Low Sodium and Restrict fluids to 64 oz
Activity: As tolerated
Driving Restrictions: As prior to admission
Bathing Restrictions: None
Specialty Instructions: Weigh Daily- Call MD for wt gain/loss 3 lbs overnight/5 lbs in 1 week
Instructions: *PCP/Other Political Scientist Heart Failure Instructions
Referrals:
Chase Brunner MD [Non-Admitting Privileges] - in one to two weeks
Siria Lozano MD [Family Provider] - in less than 1 week
Prescriptions:
New
dofetilide 500 mcg Capsule
500 mcg PO Q12H Qty: 60 1RF
No Action
carvedilol 25 mg Tablet
25 mg PO Q12H
Patient Comments:
10/27/2023, pt. filled this med. on 02/28/2023 for a 30-day supply.
furosemide 20 mg Tablet
60 mg PO DAILY
Patient Comments:
10/27/2023, pt. filled this med. on 03/28/2023 for a 30-day supply.
dapagliflozin propanediol [Farxiga] 10 mg Tablet
10 mg PO DAILY
Patient Comments:
10/27/2023, pt. filled this med. on 03/28/2023 for a 30-day supply.
Entresto 97-103 mg Tablet
1 tab PO BID
Patient Comments:
10/27/2023, pt. filled this med. on 03/28/2023 for a 30-day supply.
Care Plan Goals
Care Plan Goals:
Problem: Readiness for enhanced knowledge related to diagnosis and treatment plan
Goal: Understand your diagnosis and treatment plan needs, including medications if applicable.
Instructions: Know your diagnosis, underlying causes and treatment plan options, including medications if applicable. Consult with your health care team to learn about your diagnosis and treatment plan, including medications if applicable.
--- NOTE | 2023-11-05 08:59 | W.PN.CD ---
Addendum entered and electronically signed by Chase Meneses MD 11/05/23 10:03:
Patient seen and examined in collaboration with ORE SMELTER; agree with below.
-Can be discharged to home on dofetilide 500 mcg twice daily and furosemide 60 mg twice daily.
-Continue other cardiac medications at the current doses.
-Outpatient follow-up with primary Congen[facility] Fruit Grader at [facility] as soon as possible--patient made aware.
Original Note:
Today's Communication / Plan
-
Transition to furosemide 60mg PO BID
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
Dofetilide 500mcg BID
Continue Entresto at lower dosing
Impression / Plan
-
Hx of CM w EF 40% and w PDA closure in 2021, followed at [facility] adult congenital clinic presented in atrial fibrillation with RVR
Acute hypoxic respiratory failure
-CXR without overwhelming heart failure, but he is improving w diuresis
-VBG with metabolic acidosis, resolved
-He needs OP sleep study
Atrial fibrillation with rapid ventricular response, new per patient
-Rates elevated, did not tolerate intravenous diltiazem due to BP falling ---> S/p ELVIS/DCCV 10/31/23
-Oral Anticoagulation: None prior to arrival, started apixaban 5mg BID this admit, will need to remain on indefinitely
-[id number]: Score 1 as of now (Heart failure), but suspect underlying HTN given the degree of bp elevation prior to medications, so likely a 2
-TSH 3.67
-Sinus rhythm restored on 10/31
-Recommended rhythm control given CMY and symptoms, he is now agreeable to possible Tikosyn initiation if candidate
-Tikosyn started: QTc stable. Continue current dose at 500mcg BID
HFrEF (EF 30-35% by TTE 2021), chronic TTE this admit showed EF of 15-20%
-He received diuresis Cr increased, but now stable at 1.2
-(-2400) overnight
-Volume status difficult on exam due to body habitus, but still well above dry weight
-GDMT as tolerated
-Beta-iglesia: Carvedilol 25 mg twice daily
-Aldosterone agonist: Can consider after he maintains euvolemia
-Sacubitril/valsartan: 97-103 mg twice daily, resumed at low dose on
-SGLT inhibitor: Farxiga 10 mg daily
-Continue furosemide 60mg BID until he sees outpatient cardiology or reaches his dry weight. Renal profile at 5 days.
-Heart failure education during hospitalization
-Trend daily weight, I/O, and BMP with diuresis
-Echo 10/28/23 EF 15-20 global hypokinesis, mild MR, trace TR, PASP 30-35mmhg. LA volume severely abnormal > 48ml/m2)
CAMILO, resolved
Abnormal troponin, likely nonischemic myocardial injury in the setting of tachyarrhythmia
-Chest pain-free, peak troponin appears to be 0.041
Pulmonary HTN, moderate
Fasting hyperglycemia, HgbA1c 6.0% -> Prediabetes
PDA S/P occlusion
Obesity, BMI 40, he would benefit from weight loss, concern for KARAN, he denies prior outpatient sleep study
Subjective:
-Feeling 'great'.
Physical Exam
Vital Signs/Labs
Vital Signs
Temp Pulse Resp BP Pulse Ox
97.5 F 66 16 112/76 98
11/05/23 07:38 11/05/23 08:00 11/05/23 07:38 11/05/23 07:39 11/05/23 07:38
11/04/23 11/05/23 11/06/23
06:59 06:59 06:59
Actual Weight 129.2 kg 129.1 kg
11/04/23 05:24
11/04/23 05:24
Magnesium 2.7 mg/dl (1.6-2.3) H 11/04/23 05:24
Triglycerides 136 mg/dl (10-149) 10/28/23 05:24
LDL Cholesterol, Calc 84 mg/dl 10/28/23 05:24
VLDL Cholesterol, Calc 27 mg/dl (0-30) 10/28/23 05:24
HDL Cholesterol 33 mg/dl 10/28/23 05:24
Digoxin Cancelled 10/31/23 11:55
10/27/23 11/01/23 11/04/23
15:40 05:47 05:24
Cxa-U-Gfjkeukmebe Pept 3530 1020 219
Physical Exam
Constitutional: No acute distress and Comfortable
EENT: Anicteric and Moist mucous membranes
Cardiovascular: Rhythm & rate is regular, Pedal edema is absent and S1S2 is normal
Respiratory: Respiratory effort normal and Lungs clear to auscul.
GI: Soft, Distention absent, Flat, Non tender and Normal bowel sounds
Neuro/Psych: AO x 3
Other: Skin (warm and dry)
Data Reviewed
-
Date of Service: November 05, 2023
Labs: Labs Reviewed by me
Old Records: Reviewed
--- NOTE | 2023-11-05 09:30 | W.DS.TRANS ---
DC Summary - Hide Splitter
-
Discharge Instructions:
Sleep Apnea Risk High
Discharge Diagnosis/Procedures Acute hypoxemic respiratory failure, acute
systolic congestive heart failure exacerbation,
rapid atrial fibrillation, acute kidney injury,
troponin elevation, impaired fasting glucose,
patent ductus arteriosus status postclosure 2
years ago, morbid obesity
Diet Low Sodium,Restrict fluids to 64 oz
Activity As tolerated
Driving Restrictions As prior to admission
Bathing Restrictions None
Blood Work BMP and digoxin levels blood tests in one week -
arrange through your PCP
Specialty Instructions Weigh Daily
Instructions: *PCP/Other Ice Cream Freezer Assistant Heart Failure Instructions
Stand-Alone Forms:
Changes to Home Medications: Yes
Discharge Medications:
DC Medications w/original date entered in [facility]
carvedilol 25 mg tablet 25 mg PO Q12H Heart Disease/Condition 10/27/23
dapagliflozin propanediol 10 mg tablet (Farxiga) 10 mg PO DAILY Heart Failure 10/27/23
sacubitril 97 mg-valsartan 103 mg tablet (Entresto) 1 tab PO BID Heart Failure 10/27/23
dofetilide 500 mcg capsule 500 mcg PO Q12H #60 caps 11/04/23
apixaban 5 mg tablet (Eliquis) 5 mg PO BID #60 tabs 11/05/23
digoxin 125 mcg (0.125 mg) tablet 125 mcg PO NOON #30 tabs 11/05/23
furosemide 20 mg tablet 60 mg PO BID Fluid Retention/Swelling #60 tabs 11/05/23
Home Medication Changes
Change in dose-increase dose of Lasix from 60 once a day to twice a day
New medication-digoxin, Eliquis, Tikosyn
Pending Results: No
[2023-11-05] MEDS: LASIX IV (09:47)
[2023-11-05] MEDS: ELIQUIS 5 MG PO (10:02)
[2023-11-05] MEDS: COREG 25 MG PO (10:02)
[2023-11-05] MEDS: TIKOSYN 500 MCG PO (10:02)
[2023-11-05] MEDS: LASIX 60 MG PO (10:03)
[2023-11-05] MEDS: ENTRESTO 24 MG/26 MG 1 TAB PO (10:03)
[2023-11-05] MEDS: FARXIGA 10 MG PO (10:03)
--- NOTE | 2023-11-05 10:52 | PTCARENOTE ---
Received patient this morning ambulating in his room, offers no complaints and anxious to go home. Patient seen by the hospitalist and cardiology and ok for discharge. Reviewed discharge instructions with the patient and his and they state
their understanding. Given 3 day supply of tikosyn although he states his pharmacy does have it in stock. Reviewed heart failure discharge instructions and follow up appointments ordered. Patient discharged home with his .
== END 2023-11-05 11:11 | disposition home or self-care (01) | DRG 308 ==
LOC: IVU 22:28
PROVIDERS: Emergency Medicine; Hospitalist; Internal Medicine; Internal Medicine Cardiovascular Disease; Physician Assistant; Registered Nurse; ADMITTING PHYSICIAN Hospitalist; ATTENDING PHYSICIAN Internal Medicine; CONSULT PHYSICIAN Internal Medicine; EMERGENCY PHYSICIAN Emergency Medicine; FAMILY PHYSICIAN Family Medicine
PROC: B24BZZ4 Ultrasonography of Heart with Aorta, Transesophageal (ICD-10-PCS; 2023-10-31)
PROC: 5A2204Z Restoration of Cardiac Rhythm, Single (ICD-10-PCS; 2023-10-31)
DX: I48.0 Paroxysmal atrial fibrillation (principal); I50.23 Acute on chronic systolic (congestive) heart failure; J96.01 Acute respiratory failure with hypoxia; Z68.41 Body mass index [BMI] 40.0-44.9, adult; I5A Non-ischemic myocardial injury (non-traumatic); E87.20 Acidosis, unspecified; N17.9 Acute kidney failure, unspecified; E66.01 Morbid (severe) obesity due to excess calories; I42.0 Dilated cardiomyopathy; I27.20 Pulmonary hypertension, unspecified; Z79.01 Long term (current) use of anticoagulants
CPT/HCPCS: 71046; 80048; 80053; 80061; 80162; 81003; 82728; 82805; 83036; 83540; 83550; 83735; 83880; 84443; 84484; 85025; 85027; 87811; 92960; 93005; 93306; 93312; 93320; 93325; 96374; 99285; J1160

== ENCOUNTER 2024-09-28 12:28 | Inpatient (IN) | payer OTHER, SELFPAY ==
[2024-09-28] VITALS (12 sets, daily range): BP systolic 95–151; BP diastolic 59–132; BMI 43.2
[2024-09-28 10:26] LABS: % Basophils 0.7 % (0-2); % Eosinophils 3.4 % (0-6); % Immature Granulocytes 0.6 % (0-0.5); % Lymphocytes 16.5 % (20.5-51.1); % Monocytes 14.4 % (1.7-9.3); % Neutrophils 64.4 % (42.2-75.2); Absolute Basophils 0.1 10^3/uL (0-0.2); Absolute Eosinophils 0.2 10^3/uL (0-0.7); Absolute Lymphocytes 1.1 10^3/uL (1.2-3.4); Absolute Neutrophils 4.4 10^3/uL (1.4-6.5); Hematocrit 43.1 % (39.0-52.0); Hemoglobin 14.5 g/dL (13.0-18.0); Mean Corp Hgb Conc. 33.6 g/dL (33.0-37.0); Mean Corpuscular Hgb 26.6 pg (27.0-31.0); Mean Corpuscular Volume 79.1 fL (80.0-94.0); Mean Platelet Volume 10.1 fL (7.4-10.4); Nucleated Red Blood Cells % 0 % (-); Platelet Count 241 10^3/uL (130-400); Red Blood Cell Count 5.45 10^6/uL (4.70-6.10); Red Cell Dist. Width 15.3 % (11.5-14.5); White Blood Cell Count 6.8 10^3/uL (4.8-10.8)
[2024-09-28 10:32] LABS: ALT (SGPT) 33 U/L (0-50); AST (SGOT) 32 U/L (17-59); Albumin 4.2 g/dl (3.5-5.0); Alkaline Phosphatase 96 U/L (38-126); Blood Urea Nitrogen 13 mg/dl (9-20); Carbon Dioxide 26 mmol/L (22-30); Chloride 104 mmol/L (98-107); Estimated Creatinine Clearance > 125 ml/min; Glucose 107 mg/dl (70-99); Sodium 139 mmol/L (135-145); Total Bilirubin 0.7 mg/dl (0.2-1.3); eGFR > 60.00
[2024-09-28 10:41] LABS: NT-proBNP 1130 pg/ml; Troponin I 0.029 ng/ml
[2024-09-28 10:44] LABS: INR 0.92; PT 12.9 Sec (11.4-14.6)
[2024-09-28 10:45] LABS: APTT 30.3 Sec (23.4-35.0)
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
[2024-09-28] MEDS: LASIX 40 MG IV (10:59)
[2024-09-28 11:55] LABS: Digoxin < 0.4 ng/ml (0.8-2.0)
--- NOTE | 2024-09-28 12:20 | HPS.HSE ---
Family Physician
-
Family Physician: Siria Lozano
Chief Complaint
-
shortness of breath
History of Present Illness
38-year-old male past medical history of atrial fibrillation, HFrEF, pulmonary hypertension, patent ductus arteriosus s/p closure 2 years ago, obesity, presenting with shortness of breath. Symptoms started a week ago particularly over the past 2
days. He has had 20 pound weight gain over the past 3 weeks. He has had issues with insurance and has not been taking his medications for past 2 days and has been trying to space them out to last longer. Denies chest pain. He has lower extremity
edema. He has cough and occasionally does feel dizzy with palpitations. Denies episodes of passing out.
Denies smoking or alcohol use.
Medical History
Past Medical History
Past Medical History: Reports Other ( atrial fibrillation, HFrEF, pulmonary hypertension, patent ductus arteriosus s/p closure 2 years ago, obesity,)
Past Surgical History: Reports None
Social History
Tobacco: Non-smoker
Alcohol: None
Drug: None
Family History
Family History: Not pertinent
Allergies / Home Medications
Allergies reflects when Allergies were last updated in [facility].
Home Medications with original date entered in [facility]
Allergy/Medication List:
Allergies
Allergy/AdvReac Type Severity Reaction Status Date / Time
No Known Allergies Allergy Verified 09/28/24 09:35
Home Medications
carvedilol 25 mg tablet 25 mg PO Q12H Heart Disease/Condition 10/27/23
dapagliflozin propanediol 10 mg tablet (Farxiga) 10 mg PO DAILY Heart Failure 10/27/23
sacubitril 97 mg-valsartan 103 mg tablet (Entresto) 1 tab PO BID Heart Failure 10/27/23
dofetilide 500 mcg capsule 500 mcg PO Q12H #60 caps 11/04/23
apixaban 5 mg tablet (Eliquis) 5 mg PO BID #60 tabs 11/05/23
digoxin 125 mcg (0.125 mg) tablet 125 mcg PO NOON #30 tabs 11/05/23
furosemide 20 mg tablet 60 mg (3 x 20 mg) PO BID Fluid Retention/Swelling #60 tabs 11/05/23
spironolactone 50 mg tablet 50 mg PO DAILY 09/28/24
Review of Systems
-
History Source: Patient
A 12 point ROS was completed and negative except as noted: Yes
Constitutional: Reports No Symptoms
EENT: Reports No Symptoms
Respiratory: Reports See HPI
Cardiac: Reports See HPI
Abdomen/GI: Reports No Symptoms
: Reports No Symptoms
Musculoskeletal: Reports No Symptoms
Skin: Reports No Symptoms
Neurological: Reports No Symptoms
Endocrine: Reports No Symptoms
Hematologic/Lymphatic: Reports No Symptoms
Psych: Reports No Symptoms
Physical Exam
Vital Signs
Vital Signs
Temp Pulse Resp BP Pulse Ox
97.4 F 87 19 140/99 100
09/28/24 09:32 09/28/24 10:59 09/28/24 10:01 09/28/24 10:59 09/28/24 10:09
Physical Exam
General: Well Developed, Well Nourished and No Apparent Distress
HEENT: NormoCephalic, Moist mucous membranes and Atraumatic
Respiratory: Clear
Cardiac: S1/S2 and Regular Rhythm; No Murmur or Rub
GI: Soft, Non Tender, Non Distended and Normal Bowel Sounds; No Organomegaly
Rectal: Deferred by Provider
Musculoskeletal: No Clubbing, No Cyanosis and No Edema
Skin: No Rash
Neuro: Nonfocal/grossly intact
Laboratory Results
-
09/28/24 10:02
09/28/24 10:02
Laboratory Results
PT 12.9 Sec (11.4-14.6) 09/28/24 10:02
INR 0.92 09/28/24 10:02
APTT 30.3 Sec (23.4-35.0) 09/28/24 10:02
Total Bilirubin 0.7 mg/dl (0.2-1.3) 09/28/24 10:02
AST 32 U/L (17-59) 09/28/24 10:02
ALT 33 U/L (0-50) 09/28/24 10:02
Alkaline Phosphatase 96 U/L (38-126) 09/28/24 10:02
Troponin I 0.029 ng/ml 09/28/24 10:02
Data Reviewed
-
Lab Data: Labs Reviewed by me
Old Records: Reviewed
Impression/Plan
-
IMPRESSION:
PLAN:
# Acute on chronic HFrEF exacerbation
-EKG shows normal sinus rhythm, LVH, T wave inversions
-Cardiac BNP of 1000
-Chest x-ray shows mild pulmonary vascular congestion
-Check I's and O's, daily weights
-60 IV Lasix daily
-Continue Entresto
-Continue spironolactone
-Continue dapagliflozin
-Cardiology consulted
-Case management to help with insurance difficulties
Paroxysmal atrial fibrillation
-Continue Eliquis
-Continue Coreg
-Continue digoxin
-Continue to follow type
PDA status post closure
Pulmonary hypertension
Obesity
Full code
DVT prophylaxis�Eliquis
Cardiac diet
--- NOTE | 2024-09-28 12:29 | CON.CAR ---
Addendum entered and electronically signed by Damaso Alcantar MD 09/28/24 14:51:
I saw and examined the patient.
The MANAGER MAC's note was reviewed and I agree with the note.
Comment: 38 year old male (known to Dr. Brunner, his primary ct technologist) with type B PDA status postclosure, HFrEF, pulmonary hypertension, and paroxysmal atrial fibrillation who presented to the emergency department with a chief complaint of
shortness of breath and having a acute on chronic HF exacerbation 2/2 running out of medications.
- IV diuresis
- restart affordable medications.
Original Note:
Consultation
Consultation Request
Date/Time Consultation Requested: 09/28/2024 12:20
Date/Time Consultation Performed: 09/28/2024 12:45
Requesting Provider: Dr. Singh
Performing Provider: SAHIL Anderson for Dr. Alcantar
Reason for Consultation: Acute on chronic HFrEF
Medical History
-
Chief Complaint: Shortness of breath
History of Present Illness:
Scott Gonzalez is a 38 year old male (known to Dr. Brunner, his primary ct technologist) with type B PDA status postclosure, HFrEF, pulmonary hypertension, and paroxysmal atrial fibrillation who presented to the emergency department with a chief
complaint of shortness of breath. He endorses associated weight gain. He has not been taking his medications as directed due to cost. He does not currently have insurance. He has been trying to space them out to make them last longer. He
presents volume overloaded and acute on chronic HFrEF. He denies chest pain. No syncope.
Past Medical History
Past Medical History: Arrhythmias (Paroxysmal atrial fibrillation), CAD (HFrEF), HTN and Other (Morbid obesity, suspected KARAN)
Past Surgical History: Cardiac (PDA closure)
Social History
Tobacco: Non-Smoker
Alcohol: None
Drug: None
Personal:
Living: With Family
Employment: Disabled
Family History
Family History: Reviewed & Not Pertinent
Allergies / Home Medications
Allergy/AdvReac Type Severity Reaction Status Date / Time
No Known Allergies Allergy Verified 09/28/24 09:35
�Medication �Instructions �Recorded �Confirmed �Type
carvedilol 25 mg tablet 25 mg PO Q12H Heart 10/27/23 09/28/24 History
Disease/Condition
dapagliflozin propanediol 10 mg 10 mg PO DAILY Heart Failure 10/27/23 09/28/24 History
tablet (Farxiga)
sacubitril 97 mg-valsartan 103 mg 1 tab PO BID Heart Failure 10/27/23 09/28/24 History
tablet (Entresto)
dofetilide 500 mcg capsule 500 mcg PO Q12H #60 caps 11/04/23 09/28/24 Rx
apixaban 5 mg tablet (Eliquis) 5 mg PO BID #60 tabs 11/05/23 09/28/24 Rx
digoxin 125 mcg (0.125 mg) tablet 125 mcg PO NOON #30 tabs 11/05/23 09/28/24 Rx
furosemide 20 mg tablet 60 mg (3 x 20 mg) PO BID Fluid 11/05/23 09/28/24 Rx
Retention/Swelling #60 tabs
spironolactone 50 mg tablet 50 mg PO DAILY 09/28/24 09/28/24 History
Review of Systems
-
History Source: Patient
All other systems: Negative unless noted
Constitutional: Weight Gain
EENT: No Symptoms
Respiratory: Trouble Breathing
Cardiac: No Symptoms
Abdomen/GI: No Symptoms
: No Symptoms
Musculoskeletal: Edema
Skin: No Symptoms
Neurological: No Symptoms
Endocrine: No Symptoms
Hematologic/Lymphatic: No Symptoms
Physical Exam
Vital Signs
Temp Pulse Resp BP Pulse Ox
97.4 F 87 19 140/99 100
09/28/24 09:32 09/28/24 10:59 09/28/24 10:01 09/28/24 10:59 09/28/24 10:09
Lab Results
09/28/24 10:02
09/28/24 10:02
Troponin I 0.029 ng/ml 09/28/24 10:02
Paa-W-Mcqfnmjojwp Pept 1130 pg/ml 09/28/24 10:02
Physical Exam
General: Well Developed, Well Nourished, No Apparent Distress and Comfortable
HEENT: Normocephalic and Anicteric
Respiratory: Crackles and Accessory Resp Muscle Use
Cardiac: S1/S2, Regular Rhythm and Peripheral Edema
Breast: Deferred by me
GI: Soft, Non Tender, Non Distended and Normal Bowel Sounds
Rectal: Deferred by Provider
Genito-urinary: No Costovertebral Tender
Musculoskeletal: No Clubbing, No Cyanosis and Edema
Skin: Warm
Neuro: AO x 3
Hematologic/Lymphatic: No Lymphadenopathy
Psych: Calm
Impression / Plan
-
IMPRESSION/PLAN: 38M with type B PDA status postclosure, HFrEF, pulmonary hypertension, and paroxysmal atrial fibrillation presented with shortness of breath. He has not been taking his medications due to cost.
Primary ct technologist: Dr. Brunner
HFrEF (EF 15-20% by TTE 11/2023), acute on chronic
-This is due to missed doses of diuretics
-Clearly volume overloaded on exam
-GDMT as tolerated
-Beta-iglesia: Carvedilol 25 mg twice daily
-Aldosterone agonist: Spironolactone 50 mg daily
-Sacubitril/valsartan: 97-103 mg twice daily, this may be cost prohibitive
-SGLT inhibitor: Farxiga 10 mg daily
-Diuretic: Continue furosemide 60mg BID until he sees outpatient cardiology or reaches his dry weight. Renal profile at 5 days.
-Heart failure education during hospitalization
-Update echocardiogram
-Trend daily weight, I/O, and BMP with diuresis
Paroxysmal atrial fibrillation
-He has not taken dofetilide in approximately 48 hours, hold for now
-Continue digoxin
-Oral Anticoagulation: None for 48 hours, resume apixaban 5 mg twice daily
-[id number]: Score 2 (Heart failure, HTN)
Prediabetes
PDA S/P occlusion
Obesity, BMI > 40, he would benefit from weight loss, consider GLP-1 in the outpatient setting
Insufficient health insurance coverage, case management to assist, he may need generic only medications
--- NOTE | 2024-09-28 16:21 | CM ---
CM did chart review.
Pt. has no health insurance, which is preventing him from taking his cardiac medication.
[facility] to notify [facility] of patient's [facility].
At this time, patient will need generic, affordable medication.
--- NOTE | 2024-09-28 16:53 | CM ---
CM following for DC planning needs.
Met w/ patient and spouse at bedside to complete initial assessment.
Pt. resides in a private, 2 story home w/ spouse. Functionally, patient is indep. at baseline w/ ADLs, mobility without the use of any assisted device.
Pt. does not work. He shares that he lost his job in 2023 and has not had health insurance since then.
He notes that he has applied for MA but was denied due to his household income being 'too high'.
He believes that he will qualify for MA after he has been on disability for a year but is uncertain if this is a year from the time he applied (11/2023) or a year from the time he was approved (04/2024).
I have left message for [facility] dairy supplies sales representative, Cindy Vega, who will be able to apply for MA for hospitalization and will hopefully be able to answer these questions.
In the meanwhile, he will need to be prescribed generic medications that are affordable. We can check cost thru [employer] or [employer] $4 program.
Pt. and spouse understand this.
CM will cont. to follow.
Antic. home once stable.
[2024-09-28] MEDS: LASIX 60 MG IV (17:13)
[2024-09-28] MEDS: FLUSH (NSS) 2 FLUSH IV (17:13)
--- NOTE | 2024-09-28 17:30 | PTCARENOTE ---
Patient admitted from the ED with CHF exacerbation. SR on the monitor, on 2L NC with orthopnea and dry cough with decreased breath sounds. Oriented to the room and plan of care, admission assessment completed, patient's is at the bedside.
[2024-09-28] MEDS: COREG 25 MG PO (18:42)
[2024-09-28] MEDS: ENTRESTO 97 MG/103 MG 1 TAB PO (19:42)
[2024-09-28] MEDS: ELIQUIS 5 MG PO (19:42)
[2024-09-28] MEDS: TIKOSYN 500 MCG PO (20:53)
[2024-09-28] MEDS: ROBITUSSIN DM 5 ML PO (20:53)
--- NOTE | 2024-09-28 21:24 | PTCARENOTE ---
Pt. received at change of shift. Pt. seen and assessed in room. Pt. AOx3, tele reading NSR/ST. HF education provided. Pt. complaining of persistent dry cough, mucinex given per order. Call horton within reach. Continuing to monitor at this time.
[2024-09-29] VITALS (8 sets, daily range): BP systolic 95–120; BP diastolic 53–96; BMI 41.6
[2024-09-29] MEDS: MELATONIN 5 MG PO (00:05)
[2024-09-29] MEDS: TYLENOL 650 MG PO ×4 (00:05→22:31)
[2024-09-29 04:58] LABS: % Basophils 0.5 % (0-2); % Immature Granulocytes 0.6 % (0-0.5); % Lymphocytes 16.9 % (20.5-51.1); % Monocytes 12.8 % (1.7-9.3); % Neutrophils 67.2 % (42.2-75.2); Absolute Eosinophils 0.1 10^3/uL (0-0.7); Absolute Lymphocytes 1.1 10^3/uL (1.2-3.4); Absolute Monocytes 0.8 10^3/uL (0.1-0.6); Absolute Neutrophils 4.4 10^3/uL (1.4-6.5); Hematocrit 42.3 % (39.0-52.0); Hemoglobin 14.4 g/dL (13.0-18.0); Mean Corpuscular Hgb 25.9 pg (27.0-31.0); Mean Corpuscular Volume 75.9 fL (80.0-94.0); Mean Platelet Volume 9.8 fL (7.4-10.4); Nucleated Red Blood Cells % 0 % (-); Platelet Count 224 10^3/uL (130-400); Red Blood Cell Count 5.57 10^6/uL (4.70-6.10); Red Cell Dist. Width 14.9 % (11.5-14.5); White Blood Cell Count 6.6 10^3/uL (4.8-10.8)
[2024-09-29] MEDS: COREG 25 MG PO ×2 (05:02→20:57)
[2024-09-29 05:32] LABS: ALT (SGPT) 31 U/L (0-50); AST (SGOT) 28 U/L (17-59); Albumin 4.1 g/dl (3.5-5.0); Alkaline Phosphatase 85 U/L (38-126); Blood Urea Nitrogen 14 mg/dl (9-20); Calcium 8.4 mg/dl (8.4-10.2); Carbon Dioxide 23 mmol/L (22-30); Chloride 100 mmol/L (98-107); Estimated Creatinine Clearance > 125 ml/min; Glucose 115 mg/dl (70-99); Potassium 3.6 mmol/L (3.5-5.1); Sodium 136 mmol/L (135-145); Total Bilirubin 0.9 mg/dl (0.2-1.3); Total Protein 6.9 g/dl (6.3-8.2); eGFR > 60.00
--- NOTE | 2024-09-29 06:36 | W.PN.HOSP.TC ---
Today's Communication/Plan
-
c/w Lasix
Add cough medicine
Assessment / Plan
Assessment / Plan
Physical Exam
General: coughing, Obese.
HEENT: Normocephalic, Moist mucous membranes and Atraumatic
Respiratory: rales
Cardiac: S1/S2
GI: Soft, Non Tender, Non Distended and Normal Bowel Sounds; No Organomegaly
Rectal: No bleeding
Musculoskeletal: + Edema
Skin: No Rash
Neuro: Nonfocal/grossly intact
Psych: calm
# Acute on chronic HFrEF exacerbation
Known type B PDA status postclosure, HFrEF, pulmonary hypertension.
-EKG shows normal sinus rhythm, LVH, T wave inversions
-Cardiac BNP of 1000
-Chest x-ray shows mild pulmonary vascular congestion
-Check I's and O's, daily weights
- c/w high dose Lasix
-Continue Entresto
-Continue spironolactone
-Continue dapagliflozin
-Cardiology consulted
-Case management to help with insurance difficulties
# cough
Doubt infection
will c/w Lasix
Add Tessalon
# Paroxysmal atrial fibrillation
-Continue Eliquis
-Continue Coreg
-Continue digoxin
-Continue to follow type
#PDA status post closure
#Pulmonary hypertension
Obesity
Full code
DVT prophylaxis�Eliquis
Cardiac diet
Total time spent to see the patient, examine the patient, review data and lab results, discuss the treatment plan with patient, nursing staff around 55 minutes
Anticipated Discharge: 24 - 48 hours
Subjective/Interval History
-
Date of Service: September 29, 2024
Reports cough
No chest pain
Objective Data
-
Labs:
Laboratory Results
09/29/24
04:29
WBC 6.6
Hgb 14.4
Hct 42.3
Plt Count 224
Sodium 136
Potassium 3.6
Chloride 100
Carbon Dioxide 23
BUN 14
Creatinine 0.9
Glucose 115 H
Calcium 8.4
Total Bilirubin 0.9
AST 28
ALT 31
Alkaline Phosphatase 85
Vital Signs:
Vital Signs
Temp Pulse Resp BP Pulse Ox
98.3 F 73 22 120/82 97
09/29/24 04:00 09/29/24 05:02 09/28/24 22:51 09/29/24 05:02 09/29/24 04:00
I&O
09/27/24 09/28/24 09/29/24
06:59 06:59 06:59
Intake Total 100 / 100
Output Total 3700 / 3700
Balance -3600 / -3600
[2024-09-29] MEDS: ENTRESTO 97 MG/103 MG 1 TAB PO ×2 (07:50→20:57)
[2024-09-29] MEDS: LASIX 60 MG IV ×2 (07:50→16:21)
[2024-09-29] MEDS: ALDACTONE 50 MG PO (07:50)
[2024-09-29] MEDS: FARXIGA 10 MG PO (07:50)
[2024-09-29] MEDS: ELIQUIS 5 MG PO ×2 (07:50→19:48)
--- NOTE | 2024-09-29 09:08 | W.PN.CD ---
Today's Communication / Plan
-
IV diuresis
Dofetilide 500 mg q12 hrs with ECG 2 hrs after dose
Echo Tuesday
Impression / Plan
-
IMPRESSION/PLAN: 38M with type B PDA status postclosure, HFrEF, pulmonary hypertension, and paroxysmal atrial fibrillation presented with shortness of breath. He has not been taking his medications due to cost.
Primary ad clerk: Dr. Brunner
HFrEF (EF 15-20% by TTE 11/2023), acute on chronic
However, TTE at [place] after hospitalization showed EF improved to about 40% per Scott
-This is due to missed doses of diuretics
-Clearly volume overloaded on exam
-GDMT as tolerated
-Beta-iglesia: Carvedilol 25 mg twice daily
-Aldosterone agonist: Spironolactone 50 mg daily
-Sacubitril/valsartan: 97-103 mg twice daily, this may be cost prohibitive
-SGLT inhibitor: Farxiga 10 mg daily
-Diuretic: Continue furosemide 60mg BID
-Heart failure education during hospitalization
-Update echocardiogram
-Trend daily weight, I/O, and BMP with diuresis
Paroxysmal atrial fibrillation
-Dofetilide 500 mg bid ECG 2 hrs after dosing
-Continue digoxin
-Oral Anticoagulation: None for 48 hours, resume apixaban 5 mg twice daily
-[id number]: Score 2 (Heart failure, HTN)
Prediabetes
PDA S/P occlusion
Obesity, BMI > 40, he would benefit from weight loss, consider GLP-1 in the outpatient setting
Insufficient health insurance coverage, case management to assist, he may need generic only medications
Physical Exam
Vital Signs/Labs
Vital Signs
Temp Pulse Resp BP Pulse Ox
97.9 F 71 18 95/53 95
09/29/24 07:56 09/29/24 08:00 09/29/24 07:56 09/29/24 07:56 09/29/24 08:00
09/28/24 09/29/24 09/30/24
06:59 06:59 06:59
Actual Weight 289 lb 14.526 oz
09/29/24 04:29
09/29/24 04:29
PT 12.9 Sec (11.4-14.6) 09/28/24 10:02
INR 0.92 09/28/24 10:02
APTT 30.3 Sec (23.4-35.0) 09/28/24 10:02
Digoxin < 0.4 ng/ml (0.8-2.0) L 09/28/24 10:02
09/28/24
10:02
Bdc-M-Etfbvtzzdml Pept 1130
LAB Results
09/28/24
10:02
Troponin I 0.029
Physical Exam
Constitutional: No acute distress
EENT: Anicteric
Cardiovascular: Rhythm & rate is regular and Pedal edema present (race)
Respiratory: Respiratory effort normal and Lungs clear to auscul.
GI: Soft
Neuro/Psych: AO x 3
Data Reviewed
-
Date of Service: September 29, 2024
EKG: Tracing Personally Visualized and interpreted (sr)
Echo: Report Reviewed by me
Labs: Labs Reviewed by me
[2024-09-29] MEDS: TIKOSYN 500 MCG PO ×2 (09:30→21:31)
[2024-09-29] MEDS: LANOXIN 125 MCG PO (11:46)
[2024-09-29] MEDS: ROBITUSSIN AC 10 ML PO (16:20)
--- NOTE | 2024-09-29 18:00 | PTCARENOTE ---
Pt received this am with no c/o. Started on Tikosyn as ordered with no issues. Pt medicated for dry cough with robitussin and tessalon pearls with partial relief. Pt oob ad renetta. Voiding clear cindy urine.
[2024-09-29] MEDS: TESSALON PERLES 200 MG PO (18:12)
--- NOTE | 2024-09-29 23:38 | PTCARENOTE ---
Patient NSR on the monitor. Patient reports mild headache and dry cough this shift, PRN acetaminophen given, see DEC. EKG completed following Tikosyn dose. Patient denies chest pain, dyspnea, lightheadedness, and/or dizziness at this time. Patient
remains on room air with oxygen saturation 96-98%. Voiding clear yellow urine. Call horton within reach. Plan of care ongoing.
[2024-09-30] VITALS (47 sets, daily range): BP systolic 51–143; BP diastolic 18–100; BMI 40.7
[2024-09-30 05:26] LABS: Blood Urea Nitrogen 19 mg/dl (9-20); Calcium 8.6 mg/dl (8.4-10.2); Carbon Dioxide 23 mmol/L (22-30); Chloride 99 mmol/L (98-107); Estimated Creatinine Clearance > 125 ml/min; Glucose 127 mg/dl (70-99); Potassium 3.3 mmol/L (3.5-5.1); Sodium 137 mmol/L (135-145); eGFR > 60.00
--- NOTE | 2024-09-30 06:21 | W.PN.HOSP.TC ---
Today's Communication/Plan
-
c/w cardiac meds
top case assembler consult
Assessment / Plan
Assessment / Plan
Physical Exam
General: coughing, Obese.
HEENT: Normocephalic, Moist mucous membranes and Atraumatic
Respiratory: rales
Cardiac: S1/S2
GI: Soft, Non Tender, Non Distended and Normal Bowel Sounds; No Organomegaly
Rectal: No bleeding
Musculoskeletal: + Edema
Skin: No Rash
Neuro: Nonfocal/grossly intact
Psych: calm
# Acute on chronic HFrEF exacerbation
Known type B PDA status postclosure, HFrEF, pulmonary hypertension.
-EKG shows normal sinus rhythm, LVH, T wave inversions
-Cardiac BNP of 1000
-Chest x-ray shows mild pulmonary vascular congestion
-Check I's and O's, daily weights
- c/w Lasix
-Continue Entresto
-Continue spironolactone
-Continue dapagliflozin
-Cardiology consulted
-Case management to help with insurance difficulties
# cough
less and was able to sleep
Doubt infection
c/w Robitussin with codeine
Added Tessalon
# Paroxysmal atrial fibrillation
-Continue Eliquis
-Continue Coreg
-Continue digoxin
-Continue to follow type
#PDA status post closure
#Pulmonary hypertension
Obesity
Full code
DVT prophylaxis�Eliquis
Cardiac diet
Total time spent to see the patient, examine the patient, review data and lab results, discuss the treatment plan with patient, nursing staff around 55 minutes
Anticipated Discharge: 24 - 48 hours
Subjective/Interval History
-
Date of Service: September 30, 2024
had good night
no sob
no chest pain
less cough
Objective Data
-
Labs:
Laboratory Results
09/30/24
03:52
Sodium 137
Potassium 3.3 L
Chloride 99
Carbon Dioxide 23
BUN 19
Creatinine 1.0
Glucose 127 H
Calcium 8.6
Vital Signs:
Vital Signs
Temp Pulse Resp BP Pulse Ox
98.2 F 66 18 112/80 96
09/30/24 03:46 09/30/24 05:00 09/30/24 03:46 09/30/24 03:46 09/30/24 03:46
I&O
09/28/24 09/29/24 09/30/24
06:59 06:59 06:59
Intake Total 100 / 100
Output Total 3700 / 3700 3900 / 3900
Balance -3600 / -3600 -3900 / -3900
[2024-09-30] MEDS: ENTRESTO 97 MG/103 MG 1 TAB PO (08:19)
[2024-09-30] MEDS: KCL 40 MEQ PO (08:19)
[2024-09-30] MEDS: ELIQUIS 5 MG PO ×2 (08:19→20:27)
[2024-09-30] MEDS: FARXIGA 10 MG PO (08:20)
[2024-09-30] MEDS: LASIX 60 MG IV (08:21)
[2024-09-30] MEDS: COREG 25 MG PO (08:27)
[2024-09-30] MEDS: ALDACTONE 50 MG PO (08:27)
[2024-09-30] MEDS: TESSALON PERLES 200 MG PO (08:27)
[2024-09-30] MEDS: ROBITUSSIN AC 10 ML PO (08:27)
[2024-09-30] MEDS: TIKOSYN 250 MCG PO ×2 (08:37→20:27)
[2024-09-30 09:46] LABS: Glucose - Point of Care 146 mg/dl (70-99)
--- NOTE | 2024-09-30 10:05 | W.PN.UPDATE ---
Addendum entered and electronically signed by Elisabeth Wiseman MD 09/30/24 14:30:
Addendum
Patient is feeling better, he responded well to IVF, Levophed gtt
try to wean off Levo slowly
Hypokalemia, replaced
d/w financial planner
End
Original Note:
Update Note
Progress Note Update
Called to see the patient
He became hypotension SBP down to 50 with diaphoresis
Stat IVF bolus given
Holding BP meds/ diuretics
Started on Levophed gtt
Transfer to ICU
Suspect cardiogenic shock due to medications
Pt denies chest pain
No low glucose noted
Starting to improve with SBP up to 65 now
Blood work for troponin
d/w financial planner at bed side
Will follow
[2024-09-30] MEDS: TIKOSYN PO (10:06)
--- NOTE | 2024-09-30 10:12 | PTCARENOTE ---
Pt received this am awake, alert and oriented. OOB ad renetta and ambulating in the room. Pt denies any pain or sob. Room air sat 96%. At 0938 pt rang and stated he felt lightheaded and dizzy. BP 77/59. IV NSS started for a total of 1L. SR in the 70's.
Room air sat 95%. BS 146. Levo started as ordered, now at 5mcg. BP 96/68. Pt states he is feeling better. Pt to be transferred to ICU.
[2024-09-30 10:53] LABS: Troponin I 0.041 ng/ml
--- NOTE | 2024-09-30 11:54 | W.PN.CD ---
Today's Communication / Plan
-
Hold GDMT, give fluid back levophd wean as able
Impression / Plan
-
IMPRESSION/PLAN: 38M with type B PDA status postclosure, HFrEF, pulmonary hypertension, and paroxysmal atrial fibrillation presented with shortness of breath. He has not been taking his medications due to cost.
Primary assurance senior: Dr. Brunner
Hypotension: Patient became profoundly hypotensive after a.m. medications; he was eating his breakfast when in the middle of it he developed lightheaded dizziness and sweating he called his nurse over blood pressures were systolic in the 70s IV
fluids were started Levophed was started and blood pressure improved for now we will hold antihypertensive and goal-directed medical therapy medications cycle troponins
HFrEF (EF 15-20% by TTE 11/2023), acute on chronic
However, TTE at [place] after hospitalization showed EF improved to about 40% per Scott
-This is due to missed doses of diuretics
-Clearly volume overloaded on exam
-GDMT as tolerated: HOLD FOR NOW given significant hypotension today
-Beta-iglesia: Carvedilol 25 mg twice daily
-Aldosterone agonist: Spironolactone 50 mg daily
-Sacubitril/valsartan: 97-103 mg twice daily, this may be cost prohibitive
-SGLT inhibitor: Farxiga 10 mg daily
-Diuretic: Continue furosemide 60mg BID
-Heart failure education during hospitalization
-Update echocardiogram
-Trend daily weight, I/O, and BMP with diuresis
Paroxysmal atrial fibrillation
-Dofetilide 250 mg bid ECG 2 hrs after dosing
-Continue digoxin
-Oral Anticoagulation: None for 48 hours, resume apixaban 5 mg twice daily
-[id number]: Score 2 (Heart failure, HTN)
Prediabetes
PDA S/P occlusion
Obesity, BMI > 40, he would benefit from weight loss, consider GLP-1 in the outpatient setting
Insufficient health insurance coverage, case management to assist, he may need generic only medications
Subjective: Feeling improved after improved BP
Physical Exam
Vital Signs/Labs
Vital Signs
Temp Pulse Resp BP Pulse Ox
98.1 F 71 20 77/53 97
09/30/24 07:41 09/30/24 10:03 09/30/24 07:41 09/30/24 10:03 09/30/24 08:00
09/29/24 09/30/24 10/01/24
06:59 06:59 06:59
Actual Weight 289 lb 14.526 oz 283 lb 8.231 oz
09/29/24 04:29
09/30/24 03:52
PT 12.9 Sec (11.4-14.6) 09/28/24 10:02
INR 0.92 09/28/24 10:02
APTT 30.3 Sec (23.4-35.0) 09/28/24 10:02
Digoxin < 0.4 ng/ml (0.8-2.0) L 09/28/24 10:02
09/28/24
10:02
Rhb-M-Uxpzqxwmhwq Pept 1130
LAB Results
09/28/24 09/30/24
10:02 10:01
Troponin I 0.029 0.041 H*
Physical Exam
Constitutional: Distress
EENT: Anicteric
Cardiovascular: Rhythm & rate is regular and Pedal edema is absent
Respiratory: Respiratory effort normal and Lungs clear to auscul.
GI: Soft
Neuro/Psych: AO x 3
Data Reviewed
-
Date of Service: September 30, 2024
EKG: Tracing Personally Visualized and interpreted (sr)
Labs: Labs Reviewed by me
Critical Care Time (in minutes): 43
--- NOTE | 2024-09-30 12:29 | PTCARENOTE ---
Pt transferred to ICU at 1120. Report given to nurse receiving pt.
[2024-09-30] MEDS: LANOXIN 125 MCG PO (12:44)
--- NOTE | 2024-09-30 13:45 | PTCARENOTE ---
Rec'd patient from IVU. Patient alert and oriented. MAEx4. NSR with pvcs on tele monitor. Trace anasarca. Lung sounds diminished throughout. Pulse ox 97% on RA. Harsh, dry cough. Stood at side of bed to void in urinal. Vitals stable. Levophed
infusing at 5mcg/min upon arrival. Titrated for MAP>65. Drip off at 1300. Repeat Troponin level 0.024.
[2024-09-30 13:49] LABS: Troponin I 0.024 ng/ml
--- NOTE | 2024-09-30 14:02 | CON.INTV ---
Consultation
Consultation Request
Date/Time Consultation Requested: 09/30
Date/Time Consultation Performed: 09/30
Reason for Consultation: Critical care
Medical History
-
History of Present Illness:
History obtained from the patient, at bedside, reviewing cardiology and reviewing records. 38-year-old male with history of type B PDA, status post closure, history of heart failure, pulm hypertension who is followed by pulmonary at [place]
([facility]), presents with few days of increased shortness of breath and few pounds of weight gain. Patient had not been taking his medications. He does not have insurance, ran out, and his medications are for heart failure. He brought himself to [facility] 09/28/2024 for upon arrival, afebrile, pulse 103, breathing at 36, blood pressure 146/97, 100% saturation. He was seen by cardiology, underwent IV diuresis, dofetilide was resumed. Plan was for echocardiogram on 10/01. He
developed episode of hypotension with diaphoresis in the morning of 09/30 given IV fluids. He was started on norepinephrine and transferred to ICU. We are asked to help from critical care standpoint.
Presently, patient is without chest pain, nausea. His lightheadedness has resolved. Denies any cough, hemoptysis. Prior to hospital stay, denies any fevers, chills, sick contacts. He normally sleeps in a chair. He is unaware of any history of
sleep apnea
.
PMH: Congenital PDA closure, followed at [facility], hypertension, morbid obesity, suspected sleep apnea, paroxysmal atrial fibrillation, history of heart failure, With cardiomyopathy EF ranging between 20 and 40% in the past
Past Medical History
Past Medical History: None (See above)
Past Surgical History: None (See above)
Social History
Tobacco: Non-smoker
Alcohol: None
Drug: None
Personal:
Living: With Family
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
Family History
Family History: Reviewed & Not Pertinent
Allergies / Home Medications
Allergies
Allergy/AdvReac Type Severity Reaction Status Date / Time
No Known Allergies Allergy Verified 09/28/24 09:35
Home Medications
�Medication �Instructions �Recorded �Confirmed �Last Taken �Type
carvedilol 25 mg tablet 25 mg PO Q12H Heart 10/27/23 09/28/24 2 Days Ago History
Disease/Condition ~09/26/24
dapagliflozin propanediol 10 mg 10 mg PO DAILY Heart Failure 10/27/23 09/28/24 2 Days Ago History
tablet (Farxiga) ~09/26/24
sacubitril 97 mg-valsartan 103 mg 1 tab PO BID Heart Failure 10/27/23 09/28/24 2 Days Ago History
tablet (Entresto) ~09/26/24
dofetilide 500 mcg capsule 500 mcg PO Q12H #60 caps 11/04/23 09/28/24 2 Days Ago Rx
~09/26/24
apixaban 5 mg tablet (Eliquis) 5 mg PO BID #60 tabs 11/05/23 09/28/24 2 Days Ago Rx
~09/26/24
digoxin 125 mcg (0.125 mg) tablet 125 mcg PO NOON #30 tabs 11/05/23 09/28/24 2 Days Ago Rx
~09/26/24
furosemide 20 mg tablet 60 mg (3 x 20 mg) PO BID Fluid 11/05/23 09/28/24 2 Days Ago Rx
Retention/Swelling #60 tabs ~09/26/24
spironolactone 50 mg tablet 50 mg PO DAILY 09/28/24 09/28/24 2 Days Ago History
~09/26/24
Review of Systems
-
All other systems: Negative unless noted
Vitals / Labs / Diagnostic Testing
Vital Signs
Temp Pulse Resp BP Pulse Ox
98.1 F 72 15 104/73 95
09/30/24 07:41 09/30/24 13:30 09/30/24 13:30 09/30/24 13:30 09/30/24 13:00
Lab Data
09/29/24 04:29
09/30/24 03:52
Diagnostic Testing:
Physical Exam
-
HEENT: Normocephalic, Anicteric and Other (Large neck)
Cardiovascular: S1/S2, Regular Rhythm and Murmur (n)
Respiratory: Wheeze (n), Rales (Mild right base), Rhonchi (n) and Non-Labored Respirations
GI: Soft, Non Distended (Obese) and Non Tender
Neurology: Awake, Alert, Oriented and No Motor Deficits (Moves all extremities, able to sit up without assistance)
Skin: Good Color
General: Comfortable
Assessment
-
38-year-old male with history of PDA closure in the past, heart failure, cardiomyopathy with EF ranging between 20 and 40%, atrial fibrillation, admitted for shortness of breath due to noncompliance with medications. Was diuresed, medications
resumed but developed episode of hypotension with diaphoresis thought to be secondary to cardiogenic shock. Norepinephrine started, IV fluid bolus given and transferred to ICU for further management
Acute hypotension
Suspect medication, cardiac
Requiring norepinephrine, IV fluids
History of heart failure, EF 15 to 20%
Acute worsening due to medication noncompliance
Patient without insurance, unable to afford medications, ran out
Atrial fibrillation
Eliquis resumed
History of PDA, status post closure
Obesity, BMI greater than 40
Suspect sleep apnea
Plan/recommendations
At this time, patient remains critically ill on norepinephrine.
Blood pressure seems to be improved, patient states he feels much better. Presently systolic pressure 110s, MAP 67
Moving forward
Continue with cardiac management
Medications held today due to hypotension
continue with IV fluids, Pressors as needed
EKG earlier this morning sinus rhythm, lateral T wave inversions
Echocardiogram 10/28/2023: EF 15%, PA pressure 35
Echocardiogram pending per cardiology
Reviewed with patient likelihood of sleep disordered breathing
Patient currently sleeps in a chair routinely
Would benefit from eventual home sleep study
According to , insurance continues to be an issue
DVT prophylaxis: On Eliquis
GI prophylaxis: Not indicated
Reviewed with patient, and multiple family members at bedside
Reviewed with critical care nursing
TCCT 31 min
--- NOTE | 2024-09-30 15:58 | PTCARENOTE ---
Patient resting comfortably in bed. Vitals stable. Only complaints is feeling slightly diaphoretic. Denies dizziness. Fingerstick checked- 115. No other changes.
[2024-09-30 16:06] LABS: Glucose - Point of Care 115 mg/dl (70-99)
--- NOTE | 2024-09-30 20:00 | PTCARENOTE ---
Rec'd pt resting in bed, amb ad renetta in room, denies pain, SR w/ occas pvc, bp stable, + pulses, RA, lungs decr in bases & R base crackles,sat 95, + bowel sounds, had bm in bathroom, abd obese, soft, no n/v, voided in bathroom
[2024-09-30 20:59] LABS: Troponin I 0.021 ng/ml
--- NOTE | 2024-09-30 23:54 | PTCARENOTE ---
sys reviewed, changes noted
[2024-10-01] VITALS (25 sets, daily range): BP systolic 96–137; BP diastolic 57–95; BMI 40.6
[2024-10-01 02:31] LABS: Hemoglobin 15.5 g/dL (13.0-18.0); Mean Corp Hgb Conc. 33.7 g/dL (33.0-37.0); Mean Corpuscular Hgb 26.1 pg (27.0-31.0); Mean Corpuscular Volume 77.3 fL (80.0-94.0); Platelet Count 250 10^3/uL (130-400); Red Blood Cell Count 5.95 10^6/uL (4.70-6.10); Red Cell Dist. Width 14.9 % (11.5-14.5); White Blood Cell Count 8.1 10^3/uL (4.8-10.8)
[2024-10-01 02:54] LABS: Blood Urea Nitrogen 20 mg/dl (9-20); Calcium 8.9 mg/dl (8.4-10.2); Carbon Dioxide 24 mmol/L (22-30); Chloride 103 mmol/L (98-107); Estimated Creatinine Clearance > 125 ml/min; Glucose 105 mg/dl (70-99); Sodium 140 mmol/L (135-145); eGFR > 60.00
--- NOTE | 2024-10-01 04:00 | PTCARENOTE ---
sys reviewed, pt noted to have sleep apnea- desats to 80%
--- NOTE | 2024-10-01 08:16 | W.PN.CD ---
Addendum entered and electronically signed by Leanna Emerson MD 10/01/24 11:06:
I saw and examined the patient.
The COMMODITY SPECIALIST's note was reviewed and I agree with the note.
Comment: He is feeling much better. We discussed trying to get assistance for Eliquis and Farxiga. We discussed trying to get follow-up in our clinic in and save him in clinic. On exam lungs are clear to auscultation, he is obese making JVP
assessment impossible, regular rate and rhythm normal S1-S2, extremities are warm well-perfused. For his heart failure with reduced EF, blood pressure is improving, will try to add back a small dose of Coreg today. Will prioritize medications that
are not cost prohibitive for him. For now we will not resume Farxiga/Jardiance/Entresto. Will add back in furosemide tomorrow. Paroxysmal atrial fibrillation, in sinus, continue Tikosyn loading, fifth dose today vertigo morbid obesity, weight
loss through dietary restriction recommended. If ever has insurance, GLP-1 agonist would be of great help.
Will follow.
Original Note:
Today's Communication / Plan
-
Echocardiogram today.
Impression / Plan
-
IMPRESSION/PLAN: 38M with type B PDA status postclosure, HFrEF, pulmonary hypertension, and paroxysmal atrial fibrillation presented with shortness of breath. He has not been taking his medications due to cost.
Primary arc cutter: Dr. Brunner
Hypotension, resolved
-C/O lightheaded dizziness and sweating, SBP 70's -> IVF & Levo, tsf to ICU
-Slowly resume GDMT as tolerated
HFrEF (EF 15-20% by TTE 11/2023), acute on chronic
-This is due to missed doses of diuretics
-Transition to oral diuretic tomorrow
-GDMT as tolerated:
-Beta-iglesia: Carvedilol 25 mg twice daily ($7/month [facility]) -> Resume 6.25mg BID
-Aldosterone agonist: Spironolactone 50 mg daily -> HOLD due to hypotension
-CARMENZA/ARB/ARNI: Sacubitril/valsartan cost prohibitive, will add Valsartan when BP allows
-SGLT inhibitor: Cost prohibitive -> STOPPED
-Diuretic: Furosemide 60mg daily, resume tomorrow
-Heart failure education during hospitalization
-Update echocardiogram, TTE at [place] after hospitalization showed EF improved to about 40% per pt
-Trend daily weight, I/O, and BMP with diuresis
Paroxysmal atrial fibrillation
-Dofetilide 250mcg BID (500 mcg made QTc too long), 5th dose this morning ($16/month [facility])
-Continue digoxin ($7/month [facility])
-Oral Anticoagulation: Apixaban 5 mg twice daily, he had missed doses prior to arrival
-[id number]: Score 2 (Heart failure, HTN)
Prediabetes
Abnormal troponin, non-ischemic myocardial injury in the setting of acute HF
PDA S/P occlusion
Obesity, BMI > 40, he would benefit from weight loss, consider GLP-1 when insurance allows
Insufficient health insurance coverage, case management to assist, he may need generic only medications
SUBJECTIVE:
Denies CP, SOB, and swelling.
Physical Exam
Vital Signs/Labs
Vital Signs
Temp Pulse Resp BP Pulse Ox
97.7 F 61 13 104/60 89
10/01/24 03:50 10/01/24 06:00 10/01/24 06:00 10/01/24 06:00 10/01/24 06:00
09/30/24 10/01/24 10/02/24
06:59 06:59 06:59
Actual Weight 128.6 kg 128.4 kg
10/01/24 02:16
10/01/24 02:16
PT 12.9 Sec (11.4-14.6) 09/28/24 10:02
INR 0.92 09/28/24 10:02
APTT 30.3 Sec (23.4-35.0) 09/28/24 10:02
Digoxin < 0.4 ng/ml (0.8-2.0) L 09/28/24 10:02
09/28/24
10:02
Qpn-I-Rsdfqigfcur Pept 1130
LAB Results
09/28/24 09/30/24 09/30/24
10:02 10:01 13:04
Troponin I 0.029 0.041 H* 0.024 D
09/30/24 10/01/24
20:24 02:16
Troponin I 0.021 0.020
Physical Exam
Constitutional: No acute distress and Comfortable
EENT: Anicteric and Moist mucous membranes
Cardiovascular: Rhythm & rate is regular, Pedal edema is absent and S1S2 is normal
Respiratory: Respiratory effort normal and Lungs clear to auscul.
GI: Soft, Distention absent, Flat, Non tender and Normal bowel sounds
Neuro/Psych: AO x 3
Other: Skin (warm and dry)
Data Reviewed
-
Date of Service: October 01, 2024
EKG: Report Reviewed by me
[2024-10-01] MEDS: ELIQUIS 5 MG PO ×2 (08:56→20:09)
[2024-10-01] MEDS: TIKOSYN 250 MCG PO ×2 (08:56→20:08)
[2024-10-01] MEDS: TESSALON PERLES 200 MG PO (08:56)
--- NOTE | 2024-10-01 09:00 | PTCARENOTE ---
Rec'd pt at 0800 awake alert and oriented resting in bed. States overall he is feeling better. Denies pain or discomfort but does admit that his breathing is still not quite right- in that intermittently he needs to take a couple of extra breaths to
feel like he is getting enough O2. Speech is clear. Denies any dizziness or headache. Skin is duke wm and dry. Respirs are unlabored on RA with sats of 97%. Did ambulate in the room and used the bathroom and did not get overly winded. Does continue
to have a hacky non-prod cough. Tessalon Perrles given. BS are sl decreased and coarse at the R base. Monitor SR. + pulses. Tr LE edema. Denies chest pain. VS as documented. Abd is round soft with + BS. Denies nausea. Voided in the commode. #20
capped int intact R AC. Site wnl. Pt able to reposition himself. Ambulating without c/o dizziness. Did own am care and oral care. Plan of care reviewed with pt. Call horton in reach.
[2024-10-01] MEDS: FARXIGA PO (10:01)
[2024-10-01] MEDS: COREG 6.25 MG PO (11:10)
--- NOTE | 2024-10-01 11:20 | PTCARENOTE ---
Pt resting- at the bedside. Still with the intermittent cough. Coreg given as ordered. Currently watching HF and Sleep Apnea videos
--- NOTE | 2024-10-01 11:43 | W.PN.INTV ---
Today's Communication / Plan
Recommendations
Continue cardiac management
Echocardiogram
Transferred to IVU
sign off
Assessment
-
38-year-old male with history of PDA closure in the past, heart failure, cardiomyopathy with EF ranging between 20 and 40%, atrial fibrillation, admitted for shortness of breath due to noncompliance with medications. Was diuresed, medications
resumed but developed episode of hypotension with diaphoresis thought to be secondary to cardiogenic shock. Norepinephrine started, IV fluid bolus given and transferred to ICU for further management
Acute hypotension
Suspect medication, cardiac
Requiring norepinephrine, IV fluids
History of heart failure, EF 15 to 20%
Acute worsening due to medication noncompliance
Patient without insurance, unable to afford medications, ran out
Atrial fibrillation
Eliquis resumed
History of PDA, status post closure
Obesity, BMI greater than 40
Suspect sleep apnea
Plan/recommendations
Clinically improved
Vasopressors discontinued
Asymptomatic
Normal renal function and electrolytes
Continue cardiac management
Medications will be restarted slowly
Discontinue IV fluids
-
EKG - lateral T wave inversions-denies chest pain
Echocardiogram 10/28/2023: EF 15%, PA pressure 35
Echocardiogram pending per cardiology
Reviewed with patient likelihood of sleep disordered breathing
Patient currently sleeps in a chair routinely
Would benefit from eventual home sleep study-information will left in the chart. This was discussed with patient.
According to , insurance continues to be an issue
DVT prophylaxis: On Eliquis
GI prophylaxis: Not indicated
No additional critical care recommendations. Transferred to IVU
Critical care team will sign off.
Subjective Dataa
Subjective Data
Date of Service:
Date of Service: October 01, 2024
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
Subjective:
Asymptomatic
Vasopressors to continue
Denies shortness of breath
Denies lightheadedness
Currently sitting out of bed
Objective Data
Data Reviewed
Vital Signs / I&O / Oxygen:
Vital Signs
Temp Pulse Resp BP Pulse Ox
98 F 79 22 113/57 97
10/01/24 11:21 10/01/24 11:10 10/01/24 08:00 10/01/24 11:10 10/01/24 08:00
Intake and Output
09/30/24 10/01/24 10/02/24
06:59 06:59 06:59
Intake Total 606 / 606
Output Total 3900 / 3900 2325 / 2325
Balance -3900 / -3900 -1719 / -1719
SaO2 97
Nasal Cannula flow liters per 2
minute
Physical Exam
General: Comfortable
HEENT: Normocephalic
Cardiovascular: Regular Rhythm
Respiratory: Clear
GI: Non Distended
Neurology: Awake, AO x 3 and No Motor Deficits
Labs/Micro/Reports
Lab Data
10/01/24 02:16
10/01/24 02:16
[2024-10-01] MEDS: LANOXIN 125 MCG PO (12:44)
[2024-10-01] MEDS: ROBITUSSIN AC 10 ML PO ×2 (12:52→21:54)
--- NOTE | 2024-10-01 13:00 | PTCARENOTE ---
Watched CHF/Sleep Apnea videos. Remains resting. Still with a hacky non-prod cough. Also admits to nasal congestion. Medicated with Robitussion AC 10 mls at 1255. Ready to eat lunch shortly.
--- NOTE | 2024-10-01 13:00 | PTCARENOTE ---
BP 96/72 1 hr after Coreg - pt admitted feeling warm and 'a little off' - states he could feel his BP was done. BP better now 118/74 and pt asymptomatic. Watched CHF/Sleep Apnea videos. Still with a hacky non-prod cough. Also admits to nasal
congestion. Medicated with Robitussion AC 10 mls at 1255. Ready to eat lunch shortly. No other changes in assessment.
--- NOTE | 2024-10-01 13:35 | W.PN.HOSP.TC ---
Today's Communication/Plan
-
Monitor vital signs see plan
Transfer out of ICU
Continue with Coreg, digoxin, Tikosyn
CM for assistance with [facility]
Assessment / Plan
Assessment / Plan
Physical Exam
General: coughing, Obese.
HEENT: Normocephalic, Moist mucous membranes and Atraumatic
Respiratory: rales
Cardiac: S1/S2
GI: Soft, Non Tender, Non Distended and Normal Bowel Sounds
Rectal: No bleeding
Musculoskeletal: + Edema
Skin: No Rash
Neuro: Nonfocal/grossly intact
Psych: calm
# Acute on chronic HFrEF exacerbation
Known type B PDA status postclosure, HFrEF, pulmonary hypertension.
-EKG shows normal sinus rhythm, LVH, T wave inversions
-Cardiac BNP of 1000
-Chest x-ray shows mild pulmonary vascular congestion
-Check I's and O's, daily weights
09/30, patient developed acute hypotension secondary to medications and possible shock, cardiogenic in nature
Required nor epi, now off vasopressors. Improved.
Discussed with cardiology, Lasix will start 10/02
Coreg restarted with reduced dose
Continue with dig, Tikosyn
Continue Eliquis
echo
-Cardiology following
-Case management to help with insurance difficulties
# cough
less and was able to sleep
Doubt infection
c/w Robitussin with codeine
Added Tessalon
# Paroxysmal atrial fibrillation
-Continue Eliquis
-Continue Coreg
-Continue digoxin
#PDA status post closure
#Pulmonary hypertension
Obesity
Full code
DVT prophylaxis�Eliquis
Total time spent to see the patient, examine the patient, review data and lab results, discuss the treatment plan with patient, nursing staff around 52 minutes
Anticipated Discharge: 24 - 48 hours
Subjective/Interval History
-
Date of Service: October 01, 2024
denies pain
Objective Data
-
Labs:
Laboratory Results
10/01/24
02:16
WBC 8.1
Hgb 15.5
Hct 46.0
Plt Count 250
Sodium 140
Potassium 4.0
Chloride 103
Carbon Dioxide 24
BUN 20
Creatinine 1.0
Glucose 105 H
Calcium 8.9
Vital Signs:
Vital Signs
Temp Pulse Resp BP Pulse Ox
98 F 88 22 113/57 97
10/01/24 11:21 10/01/24 12:44 10/01/24 08:00 10/01/24 11:10 10/01/24 08:00
I&O
09/30/24 10/01/24 10/02/24
06:59 06:59 06:59
Intake Total 606 / 606 450 / 450
Output Total 3900 / 3900 2325 / 2325
Balance -3900 / -3900 -1719 / -1719 450 / 450
--- NOTE | 2024-10-01 16:30 | PTCARENOTE ---
Visiting with family most of the afternoon. Still with intermittent cough but no complaints and cough sl less since earlier Codeine. Excellent appetite for meals today- at 100% both times. BS still are coarse and decreased at the R base. VS as
documented. Cardiology - Katerine Rodriguez [employer]ACER AND TIER updated on BP and Coreg from earlier and will decrease dose. Denies any further symptoms. Ambulated 2 loops in the ICU without difficulty and no increase/or c/o SOB, or feeling like he cannot catch his
breath. No other changes in assessment. Voiding in the bathroom and had BM earlier today. Call horton in reach
--- NOTE | 2024-10-01 20:00 | PTCARENOTE ---
Rec'd pt resting in bed, amb ad renetta in room, denies pain, SR w/ occas pvc, + pulses, bp stable, RA, lungs w/ decr breath sounds R based & coarse R base, sat 96, Non prod cough, + bowel sounds, abd obese, soft, no n/v, voiding w/o problems
[2024-10-01] MEDS: COREG 3.125 MG PO (20:08)
--- NOTE | 2024-10-01 22:00 | PTCARENOTE ---
Robitussin w/ codeine given for cough
--- NOTE | 2024-10-01 23:50 | PTCARENOTE ---
resting comf, no changes
[2024-10-02] VITALS (20 sets, daily range): BP systolic 99–138; BP diastolic 57–98; BMI 40.5
--- NOTE | 2024-10-02 03:31 | PTCARENOTE ---
desat t0 78% while sleeping, quickly rebounds to 90's
[2024-10-02 03:40] LABS: % Basophils 0.7 % (0-2); % Eosinophils 3.3 % (0-6); % Immature Granulocytes 0.8 % (0-0.5); % Monocytes 8.8 % (1.7-9.3); % Neutrophils 52.4 % (42.2-75.2); Absolute Basophils 0.1 10^3/uL (0-0.2); Absolute Eosinophils 0.3 10^3/uL (0-0.7); Absolute Immature Granulocytes 0.1 10^3/uL (0-0.05); Absolute Lymphocytes 2.6 10^3/uL (1.2-3.4); Absolute Monocytes 0.7 10^3/uL (0.1-0.6); Absolute Neutrophils 3.9 10^3/uL (1.4-6.5); Hematocrit 43.2 % (39.0-52.0); Hemoglobin 14.3 g/dL (13.0-18.0); Mean Corp Hgb Conc. 33.1 g/dL (33.0-37.0); Mean Corpuscular Hgb 25.9 pg (27.0-31.0); Mean Corpuscular Volume 78.1 fL (80.0-94.0); Mean Platelet Volume 9.8 fL (7.4-10.4); Nucleated Red Blood Cells % 0 % (-); Platelet Count 232 10^3/uL (130-400); Red Blood Cell Count 5.53 10^6/uL (4.70-6.10); Red Cell Dist. Width 14.6 % (11.5-14.5); White Blood Cell Count 7.5 10^3/uL (4.8-10.8)
[2024-10-02 03:57] LABS: Blood Urea Nitrogen 21 mg/dl (9-20); Calcium 8.7 mg/dl (8.4-10.2); Carbon Dioxide 27 mmol/L (22-30); Chloride 102 mmol/L (98-107); Estimated Creatinine Clearance > 125 ml/min; Glucose 97 mg/dl (70-99); Sodium 138 mmol/L (135-145); eGFR > 60.00
--- NOTE | 2024-10-02 08:30 | W.PN.CD ---
Today's Communication / Plan
-
IV furosemide 60mg now
echo now
completed tikosyn protocol--could be down graded to tele
add back aldactone if able later today
Impression / Plan
-
IMPRESSION/PLAN: 38M with type B PDA status postclosure, HFrEF, pulmonary hypertension, and paroxysmal atrial fibrillation presented with shortness of breath. He has not been taking his medications due to cost.
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 Brunner
Hypotension, resolved
-C/O lightheaded dizziness and sweating, SBP 70's -> IVF & Levo, tsf to ICU
-Slowly resume GDMT as tolerated
HFrEF (EF 15-20% by TTE 11/2023), acute on chronic
-This is due to missed doses of diuretics
-Today still with dry cough and above his 'dry' eight of 279lb, will give IV lasix now and assess response
-GDMT as tolerated:
-Beta-iglesia: Carvedilol 25 mg twice daily ($7/month [facility]) -> 6.25 given, has symptomatic bp drop now on 3.125mg BID
-Aldosterone agonist: Spironolactone 50 mg daily -> HOLD due to hypotension, will add back later if bp good
-CARMENZA/ARB/ARNI: Sacubitril/valsartan cost prohibitive, will add Valsartan when BP allows
-SGLT inhibitor: Cost prohibitive -> STOPPED
-Diuretic: typically Furosemide 60mg daily
-Heart failure education during hospitalization
-Update echocardiogram, TTE at [place] after hospitalization showed EF improved to about 40% per pt
-Trend daily weight, I/O, and BMP with diuresis
Paroxysmal atrial fibrillation
-Dofetilide 250mcg BID (500 mcg made QTc too long), QTc stable on 250mcg BID completed loading protochol, will discharge on this dose. ($16/month [facility])
-Continue digoxin ($7/month [facility])
-Oral Anticoagulation: Apixaban 5 mg twice daily, he had missed doses prior to arrival---paperwork for financial assistance provided.
-[id number]: Score 2 (Heart failure, HTN)
Prediabetes
Abnormal troponin, non-ischemic myocardial injury in the setting of acute HF
PDA S/P occlusion
Obesity, BMI > 40, he would benefit from weight loss, consider GLP-1 when insurance allows
Insufficient health insurance coverage, case management to assist, he may need generic only medications
SUBJECTIVE:
Denies CP, SOB, and swelling He still has a dry hacking cough.
Physical Exam
Vital Signs/Labs
Vital Signs
Temp Pulse Resp BP Pulse Ox
97.8 F 63 15 126/73 93
10/02/24 07:00 10/02/24 06:00 10/02/24 06:00 10/02/24 06:00 10/02/24 06:00
10/01/24 10/02/24 10/03/24
06:59 06:59 06:59
Actual Weight 128.4 kg 127.9 kg
10/02/24 03:14
10/02/24 03:14
PT 12.9 Sec (11.4-14.6) 09/28/24 10:02
INR 0.92 09/28/24 10:02
APTT 30.3 Sec (23.4-35.0) 09/28/24 10:02
Digoxin < 0.4 ng/ml (0.8-2.0) L 09/28/24 10:02
09/28/24
10:02
Bwb-[id number]-Medvfgtxtqz Pept 1130
LAB Results
09/30/24 09/30/24 09/30/24
10:01 13:04 20:24
Troponin I 0.041 H* 0.024 D 0.021
10/01/24
02:16
Troponin I 0.020
Physical Exam
Constitutional: No acute distress
Cardiovascular: Rhythm & rate is regular, Pedal edema is absent, Systolic murmur absent and Diastolic murmur absent
Respiratory: Respiratory effort normal, Lungs clear to auscul., Wheeze Absent, Crackles Absent and Rhonchi Absent
Neuro/Psych: AO x 3
Data Reviewed
-
Date of Service: October 02, 2024
Medical Decision Making: Review of Case with other Provider (jody kirkland and Dr Tariq de la garza for tele, give iv lasix instead of po)
EKG: Tracing Personally Visualized and interpreted (ecg sinus with stable qtc) and Other (sinus)
[2024-10-02] MEDS: ELIQUIS 5 MG PO ×2 (08:38→19:21)
[2024-10-02] MEDS: COREG 3.125 MG PO ×2 (08:49→19:21)
[2024-10-02] MEDS: TIKOSYN 250 MCG PO ×2 (08:49→19:21)
--- NOTE | 2024-10-02 09:00 | PTCARENOTE ---
Rec'd pt at 0730 awake alert and oriented resting in bed. Overall states he feels good. Denies pain or discomfort. DOW. Gait is steady walking around the room with no c/o dizziness or feeling winded. Skin is duke wm and dry. Respirs are unlabored on
RA with sats of 95-96%. BS continue to be decreased and coarse at the R base. Continues with a non-prod hacky cough. Monitor SR with isolated PVC's. Did briefly dip into the 50's this am while still sleeping but mostly in the 70's when awake. +
pulses. Tr ankle edema. Denies chest pain. VS as documented. Abd is round and soft with + BS. Voiding cindy/yellow urine in the urinal. Capped #20 int intact RAC. Pt easily able to reposition himself. Did complete AM self care in the bathroom this
am. Currently resting back in bed. Dr. Emerson in to see pt and updated. Will change PO Lasix to IV this am. Plan of care reviewed with pt. Call horton in reach.
[2024-10-02] MEDS: LASIX 60 MG IV (09:24)
[2024-10-02] MEDS: FLUSH (NSS) 1 FLUSH IV (09:26)
--- NOTE | 2024-10-02 09:33 | PTCARENOTE ---
Lasix 60 mg IV given per MD order. land survey technician here ready to do ECHO. No other changes
--- NOTE | 2024-10-02 11:45 | PTCARENOTE ---
Diurising from Lasix. Resting. No changes
[2024-10-02] MEDS: LANOXIN 125 MCG PO (12:48)
--- NOTE | 2024-10-02 13:12 | PTCARENOTE ---
Resting watching TV. No changes in assessment. No complaints offered. Pt awaiting transfer to IVU.
--- NOTE | 2024-10-02 13:35 | PTCARENOTE ---
Report called to IVU
--- NOTE | 2024-10-02 13:45 | W.PN.HOSP.TC ---
Today's Communication/Plan
-
Monitor vital signs see plan
manager banking assisting with meds and possible MA
IV Lasix today
Continue with Coreg, Tikosyn, dig
Continue Eliquis
Transfer to telemetry
Assessment / Plan
Assessment / Plan
Physical Exam
General: coughing, Obese.
HEENT: Normocephalic, Moist mucous membranes and Atraumatic
Respiratory: rales
Cardiac: S1/S2
GI: Soft, Non Tender, Non Distended and Normal Bowel Sounds
Rectal: No bleeding
Musculoskeletal: + Edema
Skin: No Rash
Neuro: Nonfocal/grossly intact
Psych: calm
# Acute on chronic HFrEF exacerbation
Known type B PDA status postclosure, HFrEF, pulmonary hypertension.
-EKG shows normal sinus rhythm, LVH, T wave inversions
-Cardiac BNP of 1000
-Chest x-ray shows mild pulmonary vascular congestion
-Check I's and O's, daily weights
09/30, patient developed acute hypotension secondary to medications and possible shock, cardiogenic in nature
Required nor epi, now off vasopressors. Improved.
Discussed with cardiology, s/p IV lasix 10/02
Coreg restarted with reduced dose
Continue with dig, Tikosyn. done with tikosyn loading.
Continue Eliquis
-Cardiology following
-Case management to help with insurance difficulties
# cough
less and was able to sleep
Doubt infection
c/w Robitussin with codeine
Added Tessalon
# Paroxysmal atrial fibrillation
-Continue Eliquis
-Continue Coreg
-Continue digoxin
#PDA status post closure
#Pulmonary hypertension
Obesity
Full code
DVT prophylaxis�Eliquis
Total time spent to see the patient, examine the patient, review data and lab results, discuss the treatment plan with patient, nursing staff around 52 minutes
Anticipated Discharge: 24 - 48 hours
Subjective/Interval History
-
Date of Service: October 02, 2024
denies pain
Objective Data
-
Labs:
Laboratory Results
10/02/24
03:14
WBC 7.5
Hgb 14.3
Hct 43.2
Plt Count 232
Sodium 138
Potassium 4.0
Chloride 102
Carbon Dioxide 27
BUN 21 H
Creatinine 1.0
Glucose 97
Calcium 8.7
Vital Signs:
Vital Signs
Temp Pulse Resp BP Pulse Ox
98.2 F 82 16 118/87 98
10/02/24 11:00 10/02/24 13:00 10/02/24 13:00 10/02/24 13:00 10/02/24 13:00
I&O
10/01/24 10/02/24 10/03/24
06:59 06:59 06:59
Intake Total 606 / 606 1550 / 1550 450 / 450
Output Total 2325 / 2325 1500 / 1500
Balance -1719 / -1719 1550 / 1550 -1050 / -1050
--- NOTE | 2024-10-02 14:27 | PTCARENOTE ---
Received patient transferred from ICU to 2241. Oriented to the room and plan of care. Family at the bedside.
--- NOTE | 2024-10-02 14:45 | CM ---
Chart reviewed. Patient is independent of ADLS, lives with his in a 2 STH, 0 DANN, 0 DME. Patient being followed by [facility]. Plan is for the patient to return home. CM to follow
--- NOTE | 2024-10-02 17:55 | PTCARENOTE ---
Received patient as a transfer from ICU at 1415. Patient oriented to the room and plan of care. Monitoring VS, TT to Dr. Emerson with patient's BP's since being transferred to the unit so that medications can be adjusted. patient visiting with
family, offers no complaints.
[2024-10-03] VITALS (7 sets, daily range): BP systolic 120–138; BP diastolic 76–98; BMI 40.5
[2024-10-03 04:41] LABS: % Basophils 0.6 % (0-2); % Eosinophils 2.2 % (0-6); % Immature Granulocytes 1.3 % (0-0.5); % Lymphocytes 30.5 % (20.5-51.1); % Monocytes 7.8 % (1.7-9.3); % Neutrophils 57.6 % (42.2-75.2); Absolute Basophils 0.1 10^3/uL (0-0.2); Absolute Eosinophils 0.2 10^3/uL (0-0.7); Absolute Immature Granulocytes 0.1 10^3/uL (0-0.05); Absolute Lymphocytes 2.6 10^3/uL (1.2-3.4); Absolute Monocytes 0.7 10^3/uL (0.1-0.6); Absolute Neutrophils 4.9 10^3/uL (1.4-6.5); Hematocrit 44.4 % (39.0-52.0); Hemoglobin 14.6 g/dL (13.0-18.0); Mean Corp Hgb Conc. 32.9 g/dL (33.0-37.0); Mean Corpuscular Hgb 25.7 pg (27.0-31.0); Mean Corpuscular Volume 78.3 fL (80.0-94.0); Mean Platelet Volume 9.7 fL (7.4-10.4); Nucleated Red Blood Cells % 0 % (-); Platelet Count 254 10^3/uL (130-400); Red Blood Cell Count 5.67 10^6/uL (4.70-6.10); Red Cell Dist. Width 14.6 % (11.5-14.5); White Blood Cell Count 8.5 10^3/uL (4.8-10.8)
[2024-10-03 05:05] LABS: Blood Urea Nitrogen 25 mg/dl (9-20); Calcium 8.9 mg/dl (8.4-10.2); Carbon Dioxide 26 mmol/L (22-30); Chloride 102 mmol/L (98-107); Estimated Creatinine Clearance > 125 ml/min; Glucose 100 mg/dl (70-99); Sodium 139 mmol/L (135-145); eGFR > 60.00
[2024-10-03 05:10] LABS: Potassium 3.8 mmol/L (3.5-5.1)
[2024-10-03] MEDS: ELIQUIS 5 MG PO ×2 (08:52→19:48)
[2024-10-03] MEDS: COREG 3.125 MG PO ×2 (08:52→19:48)
[2024-10-03] MEDS: ALDACTONE 25 MG PO (08:53)
[2024-10-03] MEDS: FLUSH (NSS) 1 FLUSH IV (08:53)
[2024-10-03] MEDS: TIKOSYN 250 MCG PO ×2 (08:53→19:48)
--- NOTE | 2024-10-03 09:06 | PTCARENOTE ---
Received patient oob this AM in the bathroom washing up, would like to take a shower, will ask attending. Slept well, still has episodes of a hacking NPC, breath sounds decreased but does not appear sob. BP 126/84, given AM dose of aldactone as
ordered.
--- NOTE | 2024-10-03 10:41 | W.PN.CD ---
Today's Communication / Plan
-
IV lasix now
aldactone added back
po lasix in am
d/c planning
Impression / Plan
-
IMPRESSION/PLAN: 38M with type B PDA status postclosure, HFrEF, pulmonary hypertension, and paroxysmal atrial fibrillation presented with shortness of breath. He has not been taking his medications due to cost.
Primary recovery room nurse: Dr. Brunner
Hypotension, resolved
-C/O lightheaded dizziness and sweating, SBP 70's -> IVF & Levo, tsf to ICU
-Slowly resume GDMT as tolerated
HFrEF (EF 15-20% by TTE 11/2023), acute on chronic
-This is due to missed doses of diuretics
-Today still with dry cough and above his 'dry' eight of 279lb, will give IV lasix now and assess response
-GDMT as tolerated:
-Beta-iglesia: Carvedilol 25 mg twice daily ($7/month [facility]) -> 6.25 given, has symptomatic bp drop now on 3.125mg BID
-Aldosterone agonist: Spironolactone 50 mg daily -> HOLD due to hypotension, Added back lower dose this am
-CARMENZA/ARB/ARNI: Sacubitril/valsartan cost prohibitive, will add Valsartan when BP allows
-SGLT inhibitor: Cost prohibitive -> STOPPED
-Diuretic: typically Furosemide 60mg daily--received IV lasix 10/02/24
-ICD: reassess after consistent med use for 90 days
-Heart failure education during hospitalization
-Update echocardiogram, TTE at [place] after hospitalization showed EF improved to about 40% per pt--> Echo her EF 32% improved from our prior
-Trend daily weight, I/O, and BMP with diuresis
Paroxysmal atrial fibrillation
-Dofetilide 250mcg BID (500 mcg made QTc too long), QTc stable on 250mcg BID completed loading protochol, will discharge on this dose. ($16/month [facility])
-Continue digoxin ($7/month [facility])
-Oral Anticoagulation: Apixaban 5 mg twice daily, he had missed doses prior to arrival---paperwork for financial assistance provided.
-[id number]: Score 2 (Heart failure, HTN)
Prediabetes
Abnormal troponin, non-ischemic myocardial injury in the setting of acute HF
PDA S/P occlusion
Obesity, BMI > 40, he would benefit from weight loss, consider GLP-1 when insurance allows
Insufficient health insurance coverage, case management to assist, he may need generic only medications
d/c planning hopefully tomorrow
SUBJECTIVE:
Denies CP, SOB, and swelling He still has a dry hacking cough but improved
TTE 10/02/24:
CONCLUSIONS
Left ventricle is severely dilated. Left ventricular ejection fraction is 32%
by Donnelly's method of discs.
Global hypokinesis.
Mildly enlarged right ventricular size with preserved systolic function.
Stage I diastolic dysfunction suggestive of abnormal relaxation.
No significant valvular disease.
Compared to the prior echo on 10/28/2023, LVEF has improved from 15 to 20% to
32%. Rhythm has changed from atrial fibrillation to sinus rhythm.
Physical Exam
Vital Signs/Labs
Vital Signs
Temp Pulse Resp BP Pulse Ox
98.1 F 74 20 126/84 100
10/03/24 04:29 10/03/24 08:50 10/03/24 09:00 10/03/24 08:50 10/03/24 09:00
10/02/24 10/03/24 10/04/24
06:59 06:59 06:59
Actual Weight 127.9 kg 128 kg
10/03/24 04:25
10/03/24 04:25
PT 12.9 Sec (11.4-14.6) 09/28/24 10:02
INR 0.92 09/28/24 10:02
APTT 30.3 Sec (23.4-35.0) 09/28/24 10:02
Digoxin < 0.4 ng/ml (0.8-2.0) L 09/28/24 10:02
09/28/24
10:02
Myp-H-Dfwjvikebyl Pept 1130
LAB Results
09/30/24 09/30/24 09/30/24
10:01 13:04 20:24
Troponin I 0.041 H* 0.024 D 0.021
10/01/24
02:16
Troponin I 0.020
Physical Exam
Constitutional: No acute distress
Cardiovascular: Rhythm & rate is regular, Pedal edema is absent, Systolic murmur absent and Diastolic murmur absent
Respiratory: Respiratory effort normal, Lungs clear to auscul., Wheeze Absent, Crackles Absent and Rhonchi Absent
Neuro/Psych: AO x 3
Data Reviewed
-
Date of Service: October 03, 2024
Medical Decision Making: Review of Case with other Provider (d/w Nayla ALDANA nurse and Dr anusha daniels iv lasix today)
EKG: Other (sinus )
[2024-10-03] MEDS: LANOXIN 125 MCG PO (12:14)
--- NOTE | 2024-10-03 13:03 | W.PN.HOSP.TC ---
Today's Communication/Plan
-
monitor vitals
see plan
IV lasix
cw eliquis
Case management for assistance with medications at home and [facility]
Assessment / Plan
Assessment / Plan
Physical Exam
General: coughing, Obese.
HEENT: Normocephalic, Moist mucous membranes and Atraumatic
Respiratory: rales
Cardiac: S1/S2
GI: Soft, Non Tender, Non Distended and Normal Bowel Sounds
Rectal: No bleeding
Musculoskeletal: + Edema
Skin: No Rash
Neuro: Nonfocal/grossly intact
Psych: calm
# Acute on chronic HFrEF exacerbation
Known type B PDA status postclosure, HFrEF, pulmonary hypertension.
-EKG shows normal sinus rhythm, LVH, T wave inversions
-Cardiac BNP of 1000
-Chest x-ray shows mild pulmonary vascular congestion
-Check I's and O's, daily weights
09/30, patient developed acute hypotension secondary to medications and possible shock, cardiogenic in nature
Required nor epi, now off vasopressors. Improved.
Discussed with cardiology, s/p IV lasix 10/02
Coreg restarted with reduced dose
Continue with dig, Tikosyn. done with tikosyn loading.
Continue Eliquis
-Cardiology following
-Case management to help with insurance difficulties
# cough
less and was able to sleep
Doubt infection
c/w Robitussin with codeine
Added Tessalon
# Paroxysmal atrial fibrillation
-Continue Eliquis
-Continue Coreg
-Continue digoxin
#PDA status post closure
#Pulmonary hypertension
Obesity
Full code
DVT prophylaxis�Eliquis
Total time spent to see the patient, examine the patient, review data and lab results, discuss the treatment plan with patient, nursing staff around 51 minutes
Anticipated Discharge: Within 24 hours
Subjective/Interval History
-
Date of Service: October 03, 2024
denies pain
Objective Data
-
Labs:
Laboratory Results
10/03/24
04:25
WBC 8.5
Hgb 14.6
Hct 44.4
Plt Count 254
Sodium 139
Potassium 3.8
Chloride 102
Carbon Dioxide 26
BUN 25 H
Creatinine 1.0
Glucose 100 H
Calcium 8.9
Vital Signs:
Vital Signs
Temp Pulse Resp BP Pulse Ox
97.7 F 83 20 133/83 98
10/03/24 11:12 10/03/24 12:14 10/03/24 11:12 10/03/24 11:14 10/03/24 11:12
I&O
10/02/24 10/03/24 10/04/24
06:59 06:59 06:59
Intake Total 1550 / 1550 450 / 450
Output Total 1500 / 1500
Balance 1550 / 1550 -1050 / -1050
[2024-10-03] MEDS: LASIX 60 MG IV (13:12)
--- NOTE | 2024-10-03 18:33 | PTCARENOTE ---
BP stable throughout the shift, denies any dizziness, able to shower earlier this afternoon without difficulty.
[2024-10-04 04:32] VITALS: BP 152/88
[2024-10-04 04:37] VITALS: BMI 40.0
[2024-10-04 05:40] LABS: % Basophils 0.7 % (0-2); % Eosinophils 2.5 % (0-6); % Immature Granulocytes 1.7 % (0-0.5); % Lymphocytes 29.4 % (20.5-51.1); % Monocytes 8.9 % (1.7-9.3); % Neutrophils 56.8 % (42.2-75.2); Absolute Basophils 0.1 10^3/uL (0-0.2); Absolute Eosinophils 0.2 10^3/uL (0-0.7); Absolute Immature Granulocytes 0.2 10^3/uL (0-0.05); Absolute Lymphocytes 2.8 10^3/uL (1.2-3.4); Absolute Monocytes 0.9 10^3/uL (0.1-0.6); Absolute Neutrophils 5.5 10^3/uL (1.4-6.5); Hematocrit 44.5 % (39.0-52.0); Hemoglobin 14.9 g/dL (13.0-18.0); Mean Corp Hgb Conc. 33.5 g/dL (33.0-37.0); Mean Corpuscular Hgb 26.4 pg (27.0-31.0); Mean Corpuscular Volume 78.9 fL (80.0-94.0); Mean Platelet Volume 10.1 fL (7.4-10.4); Nucleated Red Blood Cells % 0 % (-); Platelet Count 290 10^3/uL (130-400); Red Blood Cell Count 5.64 10^6/uL (4.70-6.10); Red Cell Dist. Width 14.5 % (11.5-14.5); White Blood Cell Count 9.7 10^3/uL (4.8-10.8)
[2024-10-04 05:51] LABS: Blood Urea Nitrogen 24 mg/dl (9-20); Calcium 9.4 mg/dl (8.4-10.2); Carbon Dioxide 29 mmol/L (22-30); Chloride 100 mmol/L (98-107); Estimated Creatinine Clearance 124 ml/min; Glucose 98 mg/dl (70-99); Potassium 4.1 mmol/L (3.5-5.1); Sodium 141 mmol/L (135-145); eGFR > 60.00
[2024-10-04 07:03] VITALS: BP 135/89
[2024-10-04] MEDS: COREG 3.125 MG PO (09:01)
[2024-10-04] MEDS: TIKOSYN 250 MCG PO (09:01)
[2024-10-04] MEDS: LASIX 60 MG PO (09:02)
[2024-10-04] MEDS: ELIQUIS 5 MG PO (09:02)
[2024-10-04] MEDS: ALDACTONE 25 MG PO (09:02)
--- NOTE | 2024-10-04 10:48 | CM ---
Addendum entered by Belkys Bennett RN 10/04/24 13:35:
I spoke with Kellie Quinteros and Dr Potter, patient will go home with a sample pack of Eliquis and a free 30 day. Patient will follow up with Cardiology office.
Original Note:
Patient is independent of ADLS, lives with his in a 2 STH, 0 DANN, 0 DME. Voicemail left for JANE, Cindy, waiting on callback. I spoke to Tiffani at the [facility], patient can fill out the application online, but will need a denial
letter to be approved.
[2024-10-04 10:51] VITALS: BP 130/86
[2024-10-04] MEDS: LANOXIN 125 MCG PO (11:35)
--- NOTE | 2024-10-04 13:03 | PTCARENOTE ---
Discussed all nursing measures prior to implementation. VSS. Pt verbalized understanding. Will monitor.
--- NOTE | 2024-10-04 14:19 | W.PN.HOSP.TC ---
Addendum entered and electronically signed by Gus Potter MD 10/04/24 15:28:
Valsartan now also added by cardiology.
Discharge today
Time of discharge 39 minutes
Original Note:
Today's Communication/Plan
-
Monitor vital signs
see plan
Continue with current meds
Discharge today if okay with cardiology
Still pending MA assistance which patient will follow-up outpatient. Patient is aware that he needs to follow-up closely with cardiology and PCP
Assessment / Plan
Assessment / Plan
Physical Exam
General: coughing, Obese.
HEENT: Normocephalic, Moist mucous membranes and Atraumatic
Respiratory: rales
Cardiac: S1/S2
GI: Soft, Non Tender, Non Distended and Normal Bowel Sounds
Rectal: No bleeding
Musculoskeletal: + Edema
Skin: No Rash
Neuro: Nonfocal/grossly intact
Psych: calm
# Acute on chronic HFrEF exacerbation
Known type B PDA status postclosure, HFrEF, pulmonary hypertension.
-EKG shows normal sinus rhythm, LVH, T wave inversions
-Cardiac BNP of 1000
-Chest x-ray shows mild pulmonary vascular congestion
-Check I's and O's, daily weights
09/30, patient developed acute hypotension secondary to medications and possible shock, cardiogenic in nature
Required nor epi, now off vasopressors. Improved.
Discussed with cardiology, s/p IV lasix 10/02, 10/03
Coreg restarted with reduced dose
Continue with dig, Tikosyn. done with tikosyn loading.
Continue Eliquis
-Cardiology following
-Case management to help with insurance difficulties. Cardiology also assisting with some of his cardiac medications. Patient will be on Tikosyn, digoxin, Eliquis
# cough
less and was able to sleep
Doubt infection
c/w Robitussin with codeine
Added Tessalon
# Paroxysmal atrial fibrillation
-Continue Eliquis
-Continue Coreg
-Continue digoxin
#PDA status post closure
#Pulmonary hypertension
Obesity
Full code
DVT prophylaxis�Eliquis
Anticipated Discharge: Today
Subjective/Interval History
-
Date of Service: October 04, 2024
denies pain
Objective Data
-
Labs:
Laboratory Results
10/04/24
04:37
WBC 9.7
Hgb 14.9
Hct 44.5
Plt Count 290
Sodium 141
Potassium 4.1
Chloride 100
Carbon Dioxide 29
BUN 24 H
Creatinine 1.1
Glucose 98
Calcium 9.4
Vital Signs:
Vital Signs
Temp Pulse Resp BP Pulse Ox
98 F 90 18 135/89 97
10/04/24 10:51 10/04/24 11:35 10/04/24 10:51 10/04/24 09:01 10/04/24 10:51
I&O
10/03/24 10/04/24 10/05/24
06:59 06:59 06:59
Intake Total 450 / 450 960 / 960
Output Total 1500 / 1500 2100 / 2100
Balance -1050 / -1050 -1140 / -1140
--- NOTE | 2024-10-04 14:55 | W.PN.CD ---
Today's Communication / Plan
-
discharge to home
Impression / Plan
-
IMPRESSION/PLAN: 38M with type B PDA status postclosure, HFrEF, pulmonary hypertension, and paroxysmal atrial fibrillation presented with shortness of breath. He has not been taking his medications due to cost.
Primary hand cutter: Dr. Brunner
HFrEF (EF 15-20% by TTE 11/2023), acute on chronic
-This is due to missed doses of diuretics
-Today still with dry cough and above his 'dry' eight of 279lb, will give IV lasix now and assess response
-GDMT as tolerated:
-Beta-iglesia: Carvedilol 25 mg twice daily ($7/month [facility]) -> 6.25 given, has symptomatic bp drop now on 3.125mg BID
-Aldosterone agonist: Spironolactone 50 mg daily -> HOLD due to hypotension, added back 25 mg yesterday
-CARMENZA/ARB/ARNI: Sacubitril/valsartan cost prohibitive, will start valsartan 40 mg BID
-SGLT inhibitor: Cost prohibitive -> STOPPED
-Diuretic: typically Furosemide 60mg daily--received IV lasix 10/02/24 --> will send out on lasix 60 BID (same as prior dose)
-ICD: reassess after consistent med use for 90 days
-Heart failure education during hospitalization
-Update echocardiogram, TTE at [place] after hospitalization showed EF improved to about 40% per pt--> Echo her EF 32% improved from our prior
-Trend daily weight, I/O, and BMP with diuresis
-needs labs in 1 week
-will need to continue to work with case management to arrange outpatient follow up (seeing Dr. Brunner currently is not affordable, will try to set up with [facility] in near future
Hypotension, resolved
-C/O lightheaded dizziness and sweating, SBP 70's -> IVF & Levo, tsf to ICU
-Slowly resume GDMT as tolerated
Paroxysmal atrial fibrillation
-Dofetilide 250mcg BID (500 mcg made QTc too long), QTc stable on 250mcg BID completed loading protochol, will discharge on this dose. ($16/month [facility])
-Continue digoxin ($7/month [facility])
-Oral Anticoagulation: Apixaban 5 mg twice daily, he had missed doses prior to arrival---paperwork for financial assistance provided.
-[id number]: Score 2 (Heart failure, HTN)
Prediabetes
Abnormal troponin, non-ischemic myocardial injury in the setting of acute HF
PDA S/P occlusion
Obesity, BMI > 40, he would benefit from weight loss, consider GLP-1 when insurance allows
Insufficient health insurance coverage, case management to assist, he may need generic only medications
SUBJECTIVE:
Denies CP, SOB, and swelling He still has a dry hacking cough but improved
TTE 10/02/24:
CONCLUSIONS
Left ventricle is severely dilated. Left ventricular ejection fraction is 32%
by Donnelly's method of discs.
Global hypokinesis.
Mildly enlarged right ventricular size with preserved systolic function.
Stage I diastolic dysfunction suggestive of abnormal relaxation.
No significant valvular disease.
Compared to the prior echo on 10/28/2023, LVEF has improved from 15 to 20% to
32%. Rhythm has changed from atrial fibrillation to sinus rhythm.
Physical Exam
Vital Signs/Labs
Vital Signs
Temp Pulse Resp BP Pulse Ox
36.6 C 90 18 135/89 97
10/04/24 10:51 10/04/24 11:35 10/04/24 10:51 10/04/24 09:01 10/04/24 10:51
10/03/24 10/04/24 10/05/24
06:59 06:59 06:59
Actual Weight 128 kg 126.6 kg
10/04/24 04:37
10/04/24 04:37
PT 12.9 Sec (11.4-14.6) 09/28/24 10:02
INR 0.92 09/28/24 10:02
APTT 30.3 Sec (23.4-35.0) 09/28/24 10:02
Digoxin < 0.4 ng/ml (0.8-2.0) L 09/28/24 10:02
09/28/24
10:02
Kbb-A-[id number] Pept 1130
Physical Exam
Constitutional: No acute distress
Cardiovascular: Rhythm & rate is regular
Respiratory: Respiratory effort normal
Neuro/Psych: AO x 3
Data Reviewed
-
Date of Service: October 04, 2024
Medical Decision Making: Reviewed Test Results
Labs: Labs Reviewed by me
[2024-10-04 15:00] VITALS: BP 125/84
--- NOTE | 2024-10-04 15:28 | W.DCSUMMARY ---
Discharge Summary
Discharge Data
Date of Admission: 09/28/24
Date of Discharge: 10/04/24
-
Pending Results: No
Hospital Course
38-year-old male with type B PDA s/p closure, CHF, pulmonary hypertension, paroxysmal atrial fibrillation came to the hospital with shortness of breath. Patient reported noncompliant with this medication due to cost. On this hospitalization he was
diagnosed with acute on chronic congestive heart failure exacerbation. He was aggressively diuresed during this hospitalization. Echocardiogram was done which showed reduced EF of 32%. Patient was started back on his medications and majority of
them were generic so patient can afford. For his atrial fibrillation patient was started on Tikosyn and digoxin. His hospital course was challenging due to lack of insurance. park recreation manager continue to help him with his discharge needs. Once his
symptoms continue to improve, he was then discharged home with instructions to follow-up closely with PCP and cardiology outpatient.
Discharge Plan
-
Patient Disposition: Home (Routine Discharge)
Discharge Diagnosis/Procedures: Acute on chronic congestive heart failure with reduced ejection fraction
Hypotension likely secondary to overdiuresis
Paroxysmal atrial fibrillation
Prediabetes
Diet: Low Cholesterol, 2 Gram Sodium and Diabetic, Carb Controlled
Activity: As tolerated
Driving Restrictions: As prior to admission
Bathing Restrictions: None
Blood Work: BMP next week with primary care provider or cardiology
Instructions: *PCP/Other Mail Opener Heart Failure Instructions
Referrals:
Siria Lozano MD [Family Provider] - in less than 1 week
Leanna Emerson MD [Active] - (office will help arrange)
Prescriptions:
New
spironolactone 25 mg Tablet
25 mg PO DAILY Qty: 30 0RF
carvedilol 3.125 mg Tablet
3.125 mg PO BID Qty: 60 0RF
benzonatate 100 mg Capsule
200 mg PO TIDPRN PRN (Reason: cough) Qty: 20 0RF
dofetilide 250 mcg Capsule
250 mcg PO Q12 Qty: 60 0RF
valsartan 40 mg Tablet
40 mg PO BID Qty: 60 0RF
Continued
digoxin 125 mcg (0.125 mg) Tablet
125 mcg PO NOON Qty: 30 0RF
Eliquis 5 mg Tablet
5 mg PO BID Qty: 60 0RF
furosemide 20 mg Tablet
60 mg PO BID Qty: 60 2RF
Rx Instructions:
Increased dose on this admisison
Discontinued
carvedilol 25 mg Tablet
25 mg PO Q12H
dapagliflozin propanediol [Farxiga] 10 mg Tablet
10 mg PO DAILY
sacubitril-valsartan [Entresto] 97-103 mg Tablet
1 tab PO BID
dofetilide 500 mcg Capsule
500 mcg PO Q12H Qty: 60 1RF
spironolactone 50 mg Tablet
50 mg PO DAILY
Discharge Orders:
Discharge Patient (As Directed); Ordered 10/04/24
Ordered By: Gus Potter
Care Plan Goals
Care Plan Goals:
Problem: Readiness for enhanced knowledge related to diagnosis and treatment plan
Goal: Understand your diagnosis and treatment plan needs, including medications if applicable.
Instructions: Know your diagnosis, underlying causes and treatment plan options, including medications if applicable. Consult with your health care team to learn about your diagnosis and treatment plan, including medications if applicable.
Discharge Date and Time
Discharge Date/Time: 10/04/24 16:51
Print Language: CZECH
== END 2024-10-04 16:51 | disposition home or self-care (01) | DRG 291 ==
LOC: IVU 12:28
PROVIDERS: Internal Medicine; ADMITTING PHYSICIAN Hospitalist; ATTENDING PHYSICIAN Internal Medicine; CONSULT PHYSICIAN Internal Medicine Cardiovascular Disease; EMERGENCY PHYSICIAN Emergency Medicine; FAMILY PHYSICIAN Family Medicine; OTHER PHYSICIAN Internal Medicine Critical Care Medicine
DX: I11.0 Hypertensive heart disease with heart failure (principal); I50.23 Acute on chronic systolic (congestive) heart failure; R57.0 Cardiogenic shock; Z68.41 Body mass index [BMI] 40.0-44.9, adult; I48.0 Paroxysmal atrial fibrillation; Z79.01 Long term (current) use of anticoagulants; I27.20 Pulmonary hypertension, unspecified; E66.01 Morbid (severe) obesity due to excess calories; E87.6 Hypokalemia; I95.9 Hypotension, unspecified; Z59.71 Insufficient health insurance coverage; Z91.199 Patient's noncompliance with other medical treatment and regimen due to unspecified reason; I5A Non-ischemic myocardial injury (non-traumatic)
CPT/HCPCS: 71046; 80048; 80053; 80162; 82962; 83880; 84484; 85025; 85027; 85610; 85730; 93005; 93306; 96374; 99291

== ENCOUNTER 2025-01-01 14:59 | Emergency (ER) | payer MEDICAID, SELFPAY ==
[2025-01-01 15:02] VITALS: BP 156/109
[2025-01-01 15:19] VITALS: BMI 40.7
[2025-01-01 15:30] VITALS: BP 143/99
[2025-01-01 15:46] LABS: % Basophils 0.5 % (0-2); % Eosinophils 1.6 % (0-6); % Immature Granulocytes 0.8 % (0-0.5); % Lymphocytes 20.8 % (20.5-51.1); % Monocytes 7.4 % (1.7-9.3); % Neutrophils 68.9 % (42.2-75.2); Absolute Basophils 0.1 10^3/uL (0-0.2); Absolute Eosinophils 0.2 10^3/uL (0-0.7); Absolute Immature Granulocytes 0.1 10^3/uL (0-0.05); Absolute Lymphocytes 2.1 10^3/uL (1.2-3.4); Absolute Monocytes 0.8 10^3/uL (0.1-0.6); Hematocrit 44.9 % (39.0-52.0); Mean Corp Hgb Conc. 33.4 g/dL (33.0-37.0); Mean Corpuscular Hgb 25.8 pg (27.0-31.0); Mean Corpuscular Volume 77.1 fL (80.0-94.0); Mean Platelet Volume 9.5 fL (7.4-10.4); Nucleated Red Blood Cells % 0 % (-); Platelet Count 278 10^3/uL (130-400); Red Blood Cell Count 5.82 10^6/uL (4.70-6.10); Red Cell Dist. Width 15.3 % (11.5-14.5); White Blood Cell Count 10.1 10^3/uL (4.8-10.8)
[2025-01-01 15:54] LABS: ALT (SGPT) 25 U/L (0-50); AST (SGOT) 25 U/L (17-59); Albumin 4.3 g/dl (3.5-5.0); Alkaline Phosphatase 106 U/L (38-126); Blood Urea Nitrogen 19 mg/dl (9-20); Calcium 9.4 mg/dl (8.4-10.2); Carbon Dioxide 26 mmol/L (22-30); Chloride 107 mmol/L (98-107); Estimated Creatinine Clearance > 125 ml/min; Glucose 120 mg/dl (70-99); Potassium 3.9 mmol/L (3.5-5.1); Sodium 143 mmol/L (135-145); Total Bilirubin 0.8 mg/dl (0.2-1.3); Total Protein 7.4 g/dl (6.3-8.2); eGFR > 60.00
[2025-01-01 16:00] VITALS: BP 147/96
[2025-01-01 16:04] LABS: Troponin I 0.044 ng/ml
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
[2025-01-01 16:58] LABS: Digoxin < 0.4 ng/ml (0.8-2.0)
[2025-01-01 17:00] VITALS: BP 140/96
[2025-01-01 17:26] LABS: NT-proBNP 449 pg/ml
[2025-01-01 18:00] VITALS: BP 137/107
[2025-01-01 18:59] VITALS: BP 139/84
== END 2025-01-01 19:01 | disposition home or self-care (01) ==
LOC: EMR 14:59
PROVIDERS: EMERGENCY PHYSICIAN Emergency Medicine; FAMILY PHYSICIAN Family Medicine
DX: R07.9 Chest pain, unspecified (principal); I11.0 Hypertensive heart disease with heart failure; I50.9 Heart failure, unspecified; I48.91 Unspecified atrial fibrillation; I27.20 Pulmonary hypertension, unspecified
CPT/HCPCS: 99285; 71046; 80053; 80162; 83880; 84484; 85025; 93005

== ENCOUNTER 2025-05-20 11:03 | Emergency (ER) | payer SELFPAY ==
[2025-05-20 11:31] VITALS: BP 151/98
[2025-05-20 14:05] LABS: Hematocrit 43.3 % (39.0-52.0); Hemoglobin 14.1 g/dL (13.0-18.0); Mean Corp Hgb Conc. 32.6 g/dL (33.0-37.0); Mean Corpuscular Volume 78.2 fL (80.0-94.0); Nucleated Red Blood Cells % 0 % (-); Platelet Count 267 10^3/uL (130-400); Red Cell Dist. Width 14.8 % (11.5-14.5)
[2025-05-20 14:21] LABS: C-Reactive Protein < 5.00 mg/L (0.0-10.00)
[2025-05-20 14:34] LABS: ALT (SGPT) 22 U/L (0-50); AST (SGOT) 21 U/L (17-59); Albumin 4.6 g/dl (3.5-5.0); Alkaline Phosphatase 89 U/L (38-126); Blood Urea Nitrogen 15 mg/dl (9-20); Calcium 9.6 mg/dl (8.4-10.2); Carbon Dioxide 24 mmol/L (22-30); Chloride 107 mmol/L (98-107); Glucose 96 mg/dl (70-99); Potassium 4.2 mmol/L (3.5-5.1); Sodium 140 mmol/L (135-145); Total Protein 7.7 g/dl (6.3-8.2); eGFR > 60.00
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
[2025-05-20 15:03] VITALS: BP 153/123
[2025-05-20 15:07] VITALS: BMI 40.1
== END 2025-05-20 15:09 | disposition home or self-care (01) ==
LOC: EMR 11:03
PROVIDERS: Student in an Organized Health Care Education/Training Program; EMERGENCY PHYSICIAN Emergency Medicine; FAMILY PHYSICIAN Family Medicine
DX: M79.662 Pain in left lower leg (principal); I48.91 Unspecified atrial fibrillation; I50.9 Heart failure, unspecified; I27.20 Pulmonary hypertension, unspecified; I42.9 Cardiomyopathy, unspecified; Z83.3 Family history of diabetes mellitus
CPT/HCPCS: 99284; 73590; 80053; 85025; 85652; 86140; 93971

== ENCOUNTER 2025-06-08 14:14 | Inpatient (IN) | payer OTHER, SELFPAY ==
[2025-06-08] VITALS (32 sets, daily range): BP systolic 77–153; BP diastolic 52–138; BMI 42.8; BMI 41.8
[2025-06-08] MEDS: CARDIZEM 10 MG IV (09:37)
[2025-06-08 09:39] LABS: Hematocrit 42.6 % (39.0-52.0); Hemoglobin 14.2 g/dL (13.0-18.0); Mean Corp Hgb Conc. 33.3 g/dL (33.0-37.0); Mean Corpuscular Volume 75.9 fL (80.0-94.0); Nucleated Red Blood Cells % 0 % (-); Platelet Count 302 10^3/uL (130-400); Red Cell Dist. Width 14.9 % (11.5-14.5)
[2025-06-08] MEDS: CARDIZEM 125 IV (09:57)
[2025-06-08 10:01] LABS: ALT (SGPT) 32 U/L (0-50); AST (SGOT) 27 U/L (17-59); Albumin 4.3 g/dl (3.5-5.0); Alkaline Phosphatase 80 U/L (38-126); Blood Urea Nitrogen 19 mg/dl (9-20); Calcium 9.6 mg/dl (8.4-10.2); Carbon Dioxide 23 mmol/L (22-30); Chloride 110 mmol/L (98-107); Estimated Creatinine Clearance > 125 ml/min; Glucose 104 mg/dl (70-99); Magnesium 2.1 mg/dl (1.6-2.3); Potassium 4.2 mmol/L (3.5-5.1); Sodium 139 mmol/L (135-145); Total Protein 7.1 g/dl (6.3-8.2); eGFR > 60.00
[2025-06-08 10:03] LABS: Troponin I 0.034 ng/ml
[2025-06-08 10:29] LABS: TSH 2.21 uIU/ml (0.47-4.68)
[2025-06-08 10:42] LABS: Digoxin < 0.4 ng/ml (0.8-2.0)
[2025-06-08] MEDS: ELIQUIS 5 MG PO ×2 (11:54→19:42)
--- NOTE | 2025-06-08 11:59 | CON.CAR ---
Addendum entered and electronically signed by Leanna Emerson MD 06/08/25 14:18:
I saw and evaluated the patient, and I provided the substantive portion of the medical decision making.
I reviewed and agree with the note by Lilliam Garcia and it accurately reflects our care.
I personally performed the medical decision making of the this encounter and my assessment and plan is below:
39-year-old male with a known history of paroxysmal atrial fibrillation on Eliquis, heart failure reduced EF, nonischemic cardiomyopathy 33%, morbid obesity, pulmonary hypertension and a type B PDA s/p closure who presented for evaluation of
recurrent palpitations and shortness of breath over the last 5 days. He suspects his atrial fibrillation recurred on Tuesday thought it would revolve but did not. With this, he has had increasing in his weight and shortness of breath. On exam, he
is a morbidly gentleman in no apparent distress with a irregularly irregular rate and rhythm with a normal S2 no murmur rubs gallops were appreciated lungs are clear to auscultation bilaterally abdomen is soft but obese, extremities have 1+ pitting
edema bilaterally.
EKG shows atrial fibrillation with ventricular response, nonspecific IVCD, nonspecific ST-T wave changes.
Chest x-ray showed cardiomegaly, cephalization of his pulmonary vasculature (my review of the image)
Impression and recommendations:
Acute heart failure reduced ejection fraction: Suspect etiology recurrent atrial fibrillation. Begin diuresis with IV Lasix 60 mg twice daily with intensive monitoring.
GD[facility] as able: [facility] Has no insurance coverage. Continue spironolactone 25 mg daily, valsartan 40 mg daily, carvedilol, will titrate for rate control effects.
A-fib with RVR: Rhythm control is preferred given severe cardiomyopathy. In the past he tolerated dofetilide well, but it was not ready at the pharmacy when he was discharged so he could not continue therapy.
Will start 250 mcg p.o. twice daily which is what he tolerated in the past. Will send prescription to pharmacy today. Will ask case management to get involved to ensure he has access to the drug upon discharge. states this is not a cost
issue for him. Continue Eliquis 5 mg twice daily. He reports no max dose in the last 4 weeks, plan for cardioversion on Tuesday morning prior to discharge if still remains in A-fib. Discontinue digoxin
Morbid obesity: Would benefit from weight loss
Persistent atrial fibrillation:
Original Note:
Consultation
Consultation Request
Date/Time Consultation Requested: 06/08/25 10:30a
Date/Time Consultation Performed: 06/08/25 11:30a
Requesting Provider: Dr. Patel
Performing Provider: SAHIL Solo for Dr. Emerson
Reason for Consultation: rapid Afib
Medical History
-
Chief Complaint: rapid Afib and SOB
History of Present Illness:
Mr. Plascencia is a 39 yo male with paroxysmal Afib on Eliquis, HFrEF, NICM 32%, morbid obesity, PHTN and type B PDA s/p closure, who presents to the ER with c/o sob and rapid heart beat. He is noted to be in rapid Afib and reports compliance
with Eliquis 5mg BID w/o missed doses. His weight at home is typically 280-281 lbs but was up to 288 lbs at home. He reports compliance with all his medications. Previous admission in October 2024 he was initiated on Tikosyn 250mg BID with stable
QTc, but as an outpatient could not get the medication so he stopped it.
Past Medical History
Past Medical History: Other (as above)
Past Surgical History: Cardiac (PDA closure)
Social History
Tobacco: Non-Smoker
Personal:
Living: With Family
Family History
Family History: Reviewed & Not Pertinent
Allergies / Home Medications
Allergy/AdvReac Type Severity Reaction Status Date / Time
No Known Allergies Allergy Verified 05/20/25 11:31
�Medication �Instructions �Recorded �Confirmed �Type
apixaban 5 mg tablet (Eliquis) 5 mg PO BID #60 tabs 10/04/24 06/08/25 Rx
carvedilol 3.125 mg tablet 3.125 mg PO BID #60 tabs 10/04/24 06/08/25 Rx
furosemide 20 mg tablet 60 mg (3 x 20 mg) PO BID Fluid 10/04/24 06/08/25 Rx
Retention/Swelling #60 tabs
spironolactone 25 mg tablet 25 mg PO DAILY #30 tabs 10/04/24 06/08/25 Rx
valsartan 40 mg tablet 40 mg PO BID #60 tabs 10/04/24 06/08/25 Rx
digoxin 125 mcg (0.125 mg) tablet 125 mcg PO DAILY 01/01/25 06/08/25 History
Review of Systems
-
History Source: Patient
All other systems: Negative unless noted
Physical Exam
Vital Signs
Temp Pulse Resp BP Pulse Ox
98.5 F 115 16 86/69 97
06/08/25 08:57 06/08/25 11:15 06/08/25 11:15 06/08/25 11:15 06/08/25 11:15
Lab Results
06/08/25 09:32
06/08/25 09:33
Troponin I 0.034 ng/ml 06/08/25 09:32
Jxz-T-Mxpdmbjfnpp Pept 2020 pg/ml 06/08/25 09:32
Physical Exam
General: Well Developed, Well Nourished and No Apparent Distress
HEENT: Normocephalic and Moist Mucous Membranes
Respiratory: Clear and Other (diminished b/l bases)
Cardiac: S1/S2 and Irregular Rhythm (tachy)
Breast: Deferred by me
GI: Soft, Non Tender and Normal Bowel Sounds
Rectal: Deferred by Provider
Genito-urinary: Clear Urine
Musculoskeletal: No Clubbing, No Cyanosis and No Edema
Skin: Warm and Dry
Neuro: AO x 3
Psych: Calm
Impression / Plan
-
Afib - recurrent, rapid RVR.
- symptomatic.
- initially given IV Cardizem bolus then gtt, now off due to hypotension.
- Digoxin level < 0.4, will stop.
- rhythm control with possible initiation of Tikosyn 250 mcg Q12 hours as an inpatient.
- continue Eliquis 5mg BID.
HFrEF - EF 32% on echo 09/2024.
- GDMT limited by cost in the past, now has Medicaid.
- acute on chronic, threat to life, due to rapid Afib.
- takes Lasix PO 60mg BID, agree with IV Lasix.
- ICD: need to reassess echo and consider.
PDA - s/p closure, stable.
Obesity - chronic.
- would benefit from weight loss.
Data Reviewed
-
EKG: Tracing Personally Visualized and interpreted
Radiology: Report Reviewed by me (CXR: No acute pulmonary process.)
Medical Tests (Nuc Med, Echo etc): Report Reviewed by me (echo 10/02/24: EF 32%, global HK, mildly enlarged RV, no valve disease.)
Labs: Labs Reviewed by me
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
[2025-06-08] MEDS: LASIX 60 MG IV (15:45)
--- NOTE | 2025-06-08 16:30 | PTCARENOTE ---
Rec'd pt from ED. Tele- afib. Assessment completed as documented. Oriented pt to room. Heart failure and afib education provided and pt verbalizes understanding. Pt has no complaints at this time. Call sol w/in reach.
[2025-06-08] MEDS: LOPRESSOR 5 MG IV (16:53)
--- NOTE | 2025-06-08 17:14 | PTCARENOTE ---
HR remains elevated in the 120-150s. BP 116/91. Pt asymptomatic. Idania LIZARRAGA aware. 5mg IV lopressor ordered and administered. See MAR.
[2025-06-08] MEDS: TIKOSYN 250 MCG PO (17:29)
[2025-06-08] MEDS: DIOVAN 40 MG PO (19:42)
[2025-06-08] MEDS: COREG 6.25 MG PO (19:46)
[2025-06-09] VITALS (13 sets, daily range): BP systolic 103–139; BP diastolic 77–101; BMI 41.4
--- NOTE | 2025-06-09 00:25 | PTCARENOTE ---
Assumed care of patient at change of shift. Pt AAOx3, BP stable, and sating 99% RA. Lungs clear throughout, pt CORRAL. Tele monitor shows Afib, HR in the 100-130's at rest. After 1st dose of Tikosyn, EKG obtained per protocol. Qtc 419. Patient
ambulating self in room, voiding in urinal. Output monitored. Pt aware of POC, call horton within reach.
[2025-06-09 04:35] LABS: Hematocrit 46.7 % (39.0-52.0); Hemoglobin 15.4 g/dL (13.0-18.0); Mean Corp Hgb Conc. 33.0 g/dL (33.0-37.0); Mean Corpuscular Volume 78.5 fL (80.0-94.0); Platelet Count 323 10^3/uL (130-400); Red Cell Dist. Width 15.3 % (11.5-14.5)
[2025-06-09 05:02] LABS: Blood Urea Nitrogen 17 mg/dl (9-20); Calcium 9.2 mg/dl (8.4-10.2); Carbon Dioxide 24 mmol/L (22-30); Chloride 108 mmol/L (98-107); Estimated Creatinine Clearance > 125 ml/min; Glucose 102 mg/dl (70-99); Magnesium 2.2 mg/dl (1.6-2.3); Potassium 4.1 mmol/L (3.5-5.1); Sodium 141 mmol/L (135-145); eGFR > 60.00
[2025-06-09] MEDS: TIKOSYN 250 MCG PO ×2 (06:03→17:36)
[2025-06-09] MEDS: ALDACTONE 25 MG PO (07:49)
[2025-06-09] MEDS: DIOVAN 40 MG PO ×2 (07:49→21:08)
[2025-06-09] MEDS: COREG 6.25 MG PO ×2 (07:49→21:09)
[2025-06-09] MEDS: LASIX 60 MG IV ×2 (07:49→15:54)
[2025-06-09] MEDS: ELIQUIS 5 MG PO ×2 (07:49→21:09)
--- NOTE | 2025-06-09 08:26 | W.PN.CD ---
Today's Communication / Plan
-
continue dofetilide loading protocol with intensive monitoring
continue iv diuresis
iv bb for rvr
Impression / Plan
-
Afib - recurrent, rapid RVR.
- symptomatic.
-iv bb as needed for rate increases, avoid ccb with HFrEF
-increasing baseline bb
- Digoxin stopped
- rhythm control: sinus QTC is <440m/s
-QTC good after first dose
-Will ask case management to get involved to ensure he has access to the drug upon discharge.
- states this is not a cost issue for him.
- continue Eliquis 5mg BID.
-plan for dccv tuesday if not already back in sinus
HFrEF - EF 32% on echo 09/2024.
- acute on chronic, threat to life, due to rapid Afib.
-home 'dry' weight 282lbs
- takes Lasix PO 60mg BID, agree with IV Lasix.
-GDMT limited by cost in the past, still no Medicaid. Cannot afford Farxiga. Has no insurance coverage. Continue spironolactone 25 mg daily, valsartan 40 mg daily(transition to entresto when euvolemic), carvedilol, will titrate for rate control
effects.
- ICD: need to reassess echo and consider.
PDA - s/p closure, stable.
morbid Obesity - chronic.
- would benefit from weight loss.
Physical Exam
Vital Signs/Labs
Vital Signs
Temp Pulse Resp BP Pulse Ox
97.7 F 120 20 122/96 99
06/09/25 03:42 06/09/25 04:00 06/09/25 03:42 06/09/25 04:00 06/09/25 03:42
06/08/25 06/09/25 06/10/25
06:59 06:59 06:59
Actual Weight 288 lb 9.361 oz
06/09/25 03:55
06/09/25 03:55
Magnesium 2.2 mg/dl (1.6-2.3) 06/09/25 03:55
TSH 2.21 uIU/ml (0.47-4.68) 06/08/25 09:32
Digoxin < 0.4 ng/ml (0.8-2.0) L 06/08/25 09:33
06/08/25
09:32
Yjf-Y-Vygtmmphwej Pept 2019
LAB Results
06/08/25
09:32
Troponin I 0.034
Physical Exam
Constitutional: No acute distress
Cardiovascular: Systolic murmur absent, Diastolic murmur absent, Rhythm/rate is irregular and Pedal edema present (1+ b/l)
Respiratory: Respiratory effort normal, Lungs clear to auscul., Wheeze Absent, Crackles Absent and Rhonchi Absent
Neuro/Psych: AO x 3
Data Reviewed
-
Date of Service: June 09, 2025
Medical Decision Making: Review of Case with other Provider (Dr Wiseman and Sarah hein as needed for rates)
EKG: Tracing Personally Visualized and interpreted (afib with qtc 444, nsivcd) and Other (fib with rvr)
--- NOTE | 2025-06-09 08:33 | W.PN.HOSP.TC ---
Today's Communication/Plan
-
Follow-up with cardiology recommendations
Assessment / Plan
Assessment / Plan
Physical Exam
General: not in distress, Obese.
HEENT: Normocephalic, Moist mucous membranes and Atraumatic
Respiratory: mild basal rales, no wheezes
Cardiac: S1/S2
GI: Soft, Non Tender, Non Distended and Normal Bowel Sounds
Rectal: No bleeding
Musculoskeletal: less Edema
Skin: No Rash
Neuro: Nonfocal/grossly intact
Psych: calm
# Acute on chronic HFrEF exacerbation
Known type B PDA status postclosure, HFrEF, pulmonary hypertension.
- suspect due to A fib
Currently, rate is controlled
Not in distress
Continue carvedilol, tachycardia send and apixaban
Continue with Aldactone
# Paroxysmal change to persistent atrial fibrillation
-Continue Eliquis
-Continue Coreg
On Tikosyn and currently in A-fib
#PDA status post closure
#Pulmonary hypertension
Obesity
Full code
DVT prophylaxis�Eliquis
Cardiac diet
Total time spent to see the patient, examine the patient, review data and lab results, discuss the treatment plan with patient, nursing staff around 55 minutes
Anticipated Discharge: > 48 hours
Subjective/Interval History
-
Date of Service: June 09, 2025
No chest pain
Objective Data
-
Labs:
Laboratory Results
06/09/25
03:55
WBC 8.6
Hgb 15.4
Hct 46.7
Plt Count 323
Sodium 141
Potassium 4.1
Chloride 108 H
Carbon Dioxide 24
BUN 17
Creatinine 1.1
Glucose 102 H
Calcium 9.2
Vital Signs:
Vital Signs
Temp Pulse Resp BP Pulse Ox
97.7 F 120 20 122/96 99
06/09/25 03:42 06/09/25 04:00 06/09/25 03:42 06/09/25 04:00 06/09/25 03:42
I&O
06/08/25 06/09/25 06/10/25
06:59 06:59 06:59
Intake Total 660 / 660
Output Total 3175 / 3175
Balance -2515 / -2515
[2025-06-09] MEDS: LOPRESSOR 5 MG IV ×2 (09:19→15:20)
--- NOTE | 2025-06-09 09:30 | PTCARENOTE ---
Tele- afib. HR remains elevated in 130-140s. Dr. Emerson aware and IV lopressor 5mg ordered and administered.
[2025-06-09] MEDS: LASIX IV (15:00)
--- NOTE | 2025-06-09 16:37 | PTCARENOTE ---
Addendum entered by Sarah Lubin RN 06/09/25 18:35:
On reassessment, pt reports 'cold sweats' have passed. BP 111/80. HR remains elevated 130-140s. Dr. Emerson made aware. 2.5mg IV metoprolol ordered and administered. See MAR.
Original Note:
HR remains elevated- 130s. IV metoprolol 5mg administered at 1520. HR remains elevated after IV metoprolol dose at 130 and pt now diaphoretic. Pt reports he has the 'cold sweats' and that his 'shortness of breath comes and goes.' BP 111/99 sitting
on side of bed. Dr. Emerson made aware. Pt made NPO at midnight for possible cardioversion tomorrow. Educated pt to stay in bed per Dr. Emerson.
[2025-06-09] MEDS: LOPRESSOR 2.5 MG IV (18:03)
[2025-06-10] VITALS (8 sets, daily range): BP systolic 108–133; BP diastolic 74–98; BMI 41.2
--- NOTE | 2025-06-10 02:07 | PTCARENOTE ---
Received pt at change of shift resting in bed. A-fib on tele, HR 120's-130's. pt denies any CP at this time. Reports slight CORRAL/orthopnea. EKG post Tikosyn dose #3 obtained. QTc 530, Dr. Emerson made aware. Instructed RN to hold 0600 dose of
Tikosyn. pt instructed of NPO status after midnight, verbalizes understanding. Encouraged pt to call RN with any questions/concerns. Call horton within reach.
~2200 tele showing SR. EKG obtained to confirm. pt remains in SR with PAC's. HR in the 80's.
[2025-06-10] MEDS: TIKOSYN PO (05:59)
[2025-06-10] MEDS: COREG 6.25 MG PO ×2 (08:33→20:06)
[2025-06-10] MEDS: DIOVAN 40 MG PO ×2 (08:33→20:05)
[2025-06-10] MEDS: LASIX 60 MG IV (08:34)
[2025-06-10] MEDS: ELIQUIS 5 MG PO ×2 (08:34→20:05)
[2025-06-10] MEDS: ALDACTONE 25 MG PO (08:37)
--- NOTE | 2025-06-10 08:44 | W.PN.CD ---
Today's Communication / Plan
-
Continue dofetilide with careful telemetry
Move to PO Lasix
Impression / Plan
-
Symptomatic recurrent paroxysmal Afib
- Rate: Rapid when in AFib, fine in sinus
- Rhythm: Broke to sinus 06/09/2025 at 2200 hrs w/o bradycardia
- Oral anticoagulation: Eliquis
- [id number] at least 1 (heart failure)
- QTc overestimated by computer in AFib but also in sinus
- QTc OK by manual review no torsaes or VT, few aberrated runs 3-4 beats, none in sinus
- Cardioversion not needed
- Good candidate for elective ablation
Nonischemic cardiomyopathy with acute on chronic HFrEF exacerbated by rapid PAF
- LVEF 32% on echo 09/2024.
- Improving
- home 'dry' weight 282lbs
- takes Lasix PO 60mg BID, agree with IV Lasix.
- GDMT limited by cost in the past, still no Medicaid. Cannot afford Farxiga. Has no insurance coverage. Continue spironolactone 25 mg daily, valsartan 40 mg daily(transition to Entresto when euvolemic), carvedilol, will titrate for rate control
effects.
- ICD: need to reassess echo and consider. But perhaps echo remote from a bout of rapid AFib
PDA - s/p closure, stable.
morbid Obesity - chronic.
- would benefit from weight loss.
Subjective:
Feels better
Physical Exam
Vital Signs/Labs
Vital Signs
Temp Pulse Resp BP Pulse Ox
97.4 F 89 20 125/83 98
06/10/25 07:57 06/10/25 08:37 06/10/25 07:57 06/10/25 08:37 06/10/25 07:57
06/09/25 06/10/25 06/11/25
06:59 06:59 06:59
Actual Weight 130.9 kg 130.4 kg
06/09/25 03:55
06/09/25 03:55
Magnesium 2.2 mg/dl (1.6-2.3) 06/09/25 03:55
TSH 2.21 uIU/ml (0.47-4.68) 06/08/25 09:32
Digoxin < 0.4 ng/ml (0.8-2.0) L 06/08/25 09:33
06/08/25
09:32
Dhf-B-Ycyrdoixnyk Pept 2019
LAB Results
06/08/25
09:32
Troponin I 0.034
Physical Exam
Constitutional: No acute distress
EENT: Anicteric
Cardiovascular: Rhythm & rate is regular and Pedal edema is absent
Respiratory: Respiratory effort normal and Lungs clear to auscul.
GI: Soft and Distention absent
Neuro/Psych: AO x 3
Data Reviewed
-
Date of Service: June 10, 2025
[2025-06-10] MEDS: TIKOSYN 250 MCG PO ×2 (09:57→20:07)
--- NOTE | 2025-06-10 14:39 | CM ---
spoke to pt and in room. he is prev indep, lives with his in a 2 story home with 5 steps to enter. he denies any dme's. [facility], [facility] is on [facility]. [facility] has been called to assist in signing him up for
medical assistance. he is a citizen of the [place]. i assisted pt with good Rx coupons for dofetilide- he would like to use [facility] in [place]- his cost will be $31/month, he is agreeable to this cost. also gave pt tracy the patient assistance
program application, he has up to now been recieving samples. aware.
[2025-06-10] MEDS: LASIX 60 MG PO (15:41)
--- NOTE | 2025-06-10 15:51 | W.PN.HOSP.TC ---
Today's Communication/Plan
-
monitor on tele
anticipate dc dalila
transition to Lasix
Assessment / Plan
Assessment / Plan
Physical Exam
General: not in distress, Obese.
HEENT: Normocephalic, Moist mucous membranes and Atraumatic
Respiratory: mild basal rales, no wheezes
Cardiac: S1/S2, NSR
GI: Soft, Non Tender, Non Distended and Normal Bowel Sounds
Rectal: No bleeding
Musculoskeletal: less Edema
Skin: No Rash
Neuro: Nonfocal/grossly intact
Psych: calm
#Nonischemic cardiomyopathy with acute on chronic HFrEF exacerbated by rapid PAF
- EF to 32% on echo 09/25
� Improving
� Dry weight to 282 pounds
� IV Lasix, can transition to p.o. Lasix, transition back to Lasix p.o. 60 mg twice daily
� GDMT limited by cost, has no insurance
� Continue spironolactone, valsartan, Coreg
�ICD evaluation outpatient
Known type B PDA status postclosure, pulmonary hypertension.
- Status post closure, stable
# Paroxysmal change to persistent atrial fibrillation
� Converted to NSR when heart rates are controlled. Rapid when in A-fib.
-Continue Eliquis
-Continue Coreg
�Tikosyn
�Cardioversion not needed
� Good candidate for elective ablation
� Continue telemetry for today, anticipate discharge tomorrow with close follow-up
#PDA status post closure
#Pulmonary hypertension
Morbid obesity
Full code
DVT prophylaxis�Eliquis
Cardiac diet
Anticipated Discharge: Within 24 hours
Subjective/Interval History
-
Date of Service: June 10, 2025
Converted to sinus on dofetilide
Objective Data
-
Vital Signs:
Vital Signs
Temp Pulse Resp BP Pulse Ox
97.8 F 93 20 132/98 97
06/10/25 15:40 06/10/25 15:41 06/10/25 15:40 06/10/25 15:41 06/10/25 15:40
I&O
06/09/25 06/10/25 06/11/25
06:59 06:59 06:59
Intake Total 660 / 660 1310 / 1310
Output Total 3175 / 3175 1550 / 1550
Balance -2515 / -2515 -240 / -240
Review of Systems
-
History Source: Patient
All other systems: Not reviewed unless documented
Data Reviewed
-
Diagnostic Radiology: Report Reviewed by me
Labs: Labs Reviewed by me
--- NOTE | 2025-06-10 18:58 | PTCARENOTE ---
~4598-5276: Handoff rpeort received from nightshift RN. Pt AOx4, NSR 1st degree AVB 80s-90s, SBP 120s, RA satting 95%. Pt denies pain at this time. Spoke with Dr. Mijares about tikosyn dose, patient to receive the dose of tikosyn this AM, verbal order
placed. All needs met, call horton within reach.
~9148-5239: EKG obtained per protocol. All needs met at this time, call horton within reach.
~4008-1958: Patient independent in room. VSS. First dose PO lasix given per order. Informed CM of patient selection for pharmacy to send tikosyn to. ECHO completed.
~[id number]: Family visiting. patient independent in room and ambulating unit with family independently. VSS. No c/o pain at this time. All needs met, call horton within reach. Handoff report given to nightshift RN.
[2025-06-10] MEDS: ATROVENT NEBULES 0.5 MG INH (20:50)
--- NOTE | 2025-06-11 01:51 | PTCARENOTE ---
Received pt at change of shift resting in bed. SR on tele, HR 80's-90's. Captured VS from hi, 1100 on. pt denies any CP at this time. pt reports having a frequent dry cough and CORRAL/rest. Reached out to Caroline Muniz NP. Order for neb
obtained. pt verbalizes some relief after neb tx. Encouraged pt to call RN with any questions/concerns. Call horton within reach.
[2025-06-11 03:38] VITALS: BP 128/90
[2025-06-11 03:39] VITALS: BMI 41.1
[2025-06-11 04:54] LABS: Hematocrit 42.6 % (39.0-52.0); Hemoglobin 14.3 g/dL (13.0-18.0); Mean Corp Hgb Conc. 33.6 g/dL (33.0-37.0); Mean Corpuscular Volume 75.9 fL (80.0-94.0); Platelet Count 290 10^3/uL (130-400); Red Cell Dist. Width 14.6 % (11.5-14.5)
[2025-06-11 05:18] LABS: Blood Urea Nitrogen 19 mg/dl (9-20); Calcium 9.1 mg/dl (8.4-10.2); Carbon Dioxide 22 mmol/L (22-30); Chloride 107 mmol/L (98-107); Estimated Creatinine Clearance 125 ml/min; Glucose 106 mg/dl (70-99); Potassium 3.8 mmol/L (3.5-5.1); Sodium 140 mmol/L (135-145); eGFR > 60.00
[2025-06-11 07:25] VITALS: BP 92/66
[2025-06-11] MEDS: TIKOSYN 250 MCG PO (08:35)
[2025-06-11] MEDS: LASIX 60 MG PO (08:35)
[2025-06-11 08:37] VITALS: BP 126/101
[2025-06-11] MEDS: ELIQUIS 5 MG PO (08:38)
[2025-06-11] MEDS: DIOVAN 40 MG PO (08:38)
[2025-06-11] MEDS: ALDACTONE 25 MG PO (08:38)
[2025-06-11] MEDS: COREG 6.25 MG PO (08:38)
--- NOTE | 2025-06-11 08:45 | W.PN.CD ---
Today's Communication / Plan
-
Home on Tikosyn 250mcg BID--will not miss dosing
BB increased this hospitalization
resume po bid furosemide
will need op eval for ICD, and would benefit from PVI
needs op sleep study
Impression / Plan
-
Symptomatic recurrent paroxysmal Afib
- Rate: Rapid when in AFib, fine in sinus
- Rhythm: Broke to sinus 06/09/2025 at 2200 hrs w/o bradycardia
- Oral anticoagulation: Eliquis
- [id number] at least 1 (heart failure)
- QTc stable
- no torsaes or VT, few aberrated runs 3-4 beats, none in sinus
- Cardioversion not needed
- Would benefit from elective ablation
Nonischemic cardiomyopathy with acute on chronic HFrEF exacerbated by rapid PAF
- LVEF 32% on echo 09/2024.
- Improving
- home 'dry' weight 282lbs, can continue without op diuresis
- takes Lasix PO 60mg BID, will resume
- GDMT limited by cost in the past, still no Medicaid. Cannot afford [employer]. Has no insurance coverage. Continue spironolactone 25 mg daily, valsartan 40 mg daily(transition to Entresto when euvolemic and can afford as an op), carvedilol, dose
increased this admission
- ICD: need to reassess echo and consider. But perhaps echo remote from a bout of rapid AFib
PDA - s/p closure, stable.
morbid Obesity - chronic.
- would benefit from weight loss.
Case management repots he will likely have medical assistence in 39-45 days.
Subjective:
Feels better
Data Reviewed:
TTE
1. Dilated LV with severely reduced systolic function.
2. LVEF is approximately 20% by visual estimation. Severe global diffuse hypokinesis.
3. Stage III diastolic dysfunction.
4. RV is not well-visualized.
5. Moderate eccentric mitral regurgitation.
6. Insufficient TR for estimation of PASP.
7. Compared to prior from October 02, 2024, LVEF is worse now ~20%, previously ~32%.
Physical Exam
Vital Signs/Labs
Vital Signs
Temp Pulse Resp BP Pulse Ox
98.7 F 84 20 126/101 98
06/11/25 07:26 06/11/25 08:38 06/11/25 07:26 06/11/25 08:38 06/11/25 07:26
06/10/25 06/11/25 06/12/25
06:59 06:59 06:59
Actual Weight 287 lb 7.724 oz 286 lb 9.615 oz
06/11/25 03:50
06/11/25 03:50
Magnesium 2.2 mg/dl (1.6-2.3) 06/09/25 03:55
TSH 2.21 uIU/ml (0.47-4.68) 06/08/25 09:32
Digoxin < 0.4 ng/ml (0.8-2.0) L 06/08/25 09:33
06/08/25
09:32
Kdc-D-Rpipryecypw Pept 2019
LAB Results
06/08/25
09:32
Troponin I 0.034
Physical Exam
Constitutional: No acute distress
Cardiovascular: Rhythm & rate is regular, Systolic murmur absent, Diastolic murmur absent and Pedal edema present (trace )
Respiratory: Respiratory effort normal, Lungs clear to auscul., Wheeze Absent, Crackles Absent and Rhonchi Absent
Neuro/Psych: AO x 3
Data Reviewed
-
Date of Service: June 11, 2025
Medical Decision Making: Review of Case with other Provider (sinus, 1 4 beat run on NSVT)
[2025-06-11 09:53] LABS: Hematocrit 44.5 % (39.0-52.0); Hemoglobin 14.8 g/dL (13.0-18.0); Mean Corp Hgb Conc. 33.3 g/dL (33.0-37.0); Mean Corpuscular Volume 76.6 fL (80.0-94.0); Platelet Count 311 10^3/uL (130-400); Red Cell Dist. Width 14.8 % (11.5-14.5)
--- NOTE | 2025-06-11 11:40 | W.PN.HOSP.TC ---
Addendum entered and electronically signed by Ellis Hernandes MD 06/12/25 17:27:
[id number]
Original Note:
Today's Communication/Plan
-
Tikosyn
Increased Coreg
Furosemide 60 mg twice daily, continue
Outpatient evaluation for ICD, would benefit from PVI as well as outpatient sleep study
Follow-up PCP within 1 week, cardiology outpatient
CBC and BMP outpatient follow-up
Assessment / Plan
Assessment / Plan
Physical Exam
General: not in distress, Obese.
HEENT: Normocephalic, Moist mucous membranes and Atraumatic
Respiratory: mild basal rales, no wheezes
Cardiac: S1/S2, NSR
GI: Soft, Non Tender, Non Distended and Normal Bowel Sounds
Rectal: No bleeding
Musculoskeletal: less Edema
Skin: No Rash
Neuro: Nonfocal/grossly intact
Psych: calm
#Nonischemic cardiomyopathy with acute on chronic HFrEF exacerbated by rapid PAF
- EF to 32% on echo 09/25
� Improving
� Dry weight to 282 pounds
� IV Lasix, can transition to p.o. Lasix, transition back to Lasix p.o. 60 mg twice daily
� GDMT limited by cost, has no insurance
� Continue spironolactone, valsartan, increased Coreg
�ICD evaluation outpatient
Known type B PDA status postclosure, pulmonary hypertension.
- Status post closure, stable
# Paroxysmal change to persistent atrial fibrillation
� Converted to NSR when heart rates are controlled. Rapid when in A-fib.
-Continue Eliquis
-Continue Coreg
�Tikosyn. He
�Cardioversion not needed
� Good candidate for elective ablation�outpatient evaluation
� Continue telemetry for today, anticipate discharge tomorrow with close follow-up
#PDA status post closure
#Pulmonary hypertension
Morbid obesity
� Sleep study outpatient
Full code
DVT prophylaxis�Eliquis
Cardiac diet
More than 30 minutes spent in discharge including
Final examination of the patient
Summarizing hospital stay
Instructions for continuing care to all relevant caregivers
Preparation of discharge records, prescriptions, and referral forms
Total time spent (in minutes): 37
Anticipated Discharge: Today
Subjective/Interval History
-
Date of Service: June 11, 2025
No acute events
Objective Data
-
Labs:
Laboratory Results
06/11/25 06/11/25
03:50 09:29
WBC 12.1 H 10.4
Hgb 14.3 14.8
Hct 42.6 44.5
Plt Count 290 311
Sodium 140
Potassium 3.8
Chloride 107
Carbon Dioxide 22
BUN 19
Creatinine 1.1
Glucose 106 H
Calcium 9.1
Vital Signs:
Vital Signs
Temp Pulse Resp BP Pulse Ox
98.7 F 88 20 126/101 98
06/11/25 07:26 06/11/25 09:00 06/11/25 07:26 06/11/25 08:38 06/11/25 07:26
I&O
06/10/25 06/11/25 06/12/25
06:59 06:59 06:59
Intake Total 1310 / 1310 480 / 480
Output Total 1550 / 1550
Balance -240 / -240 480 / 480
Review of Systems
-
History Source: Patient
All other systems: Not reviewed unless documented
Data Reviewed
-
Diagnostic Radiology: Report Reviewed by me
Labs: Labs Reviewed by me
--- NOTE | 2025-06-11 11:43 | W.DS.TRANS ---
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
-
Discharge Instructions:
Sleep Apnea Risk High
Discharge Diagnosis/Procedures Symptomatic recurrent paroxysmal Afib
Nonischemic cardiomyopathy with acute on chronic
HFrEF exacerbated by rapid PAF
Diet 2 Gram Sodium,Restrict fluids to 64 oz
Activity No strenuous activity
Driving Restrictions As prior to admission
Bathing Restrictions None
Blood Work cbc and bmp in 3-5 days with pcp
Others Tests needs outpatient sleep study
outpatient eval for ICD, and would benefit from
PVI
Specialty Instructions Weigh Daily
Instructions:
Stand-Alone Forms:
Changes to Home Medications: Yes
Discharge Medications:
DC Medications w/original date entered in [facility]
apixaban 5 mg tablet (Eliquis) 5 mg PO BID #60 tabs 10/04/24
spironolactone 25 mg tablet 25 mg PO DAILY #30 tabs 10/04/24
valsartan 40 mg tablet 40 mg PO BID #60 tabs 10/04/24
carvedilol 6.25 mg tablet 6.25 mg PO BID 30 days #60 tabs 06/11/25
dofetilide 250 mcg capsule 250 mcg PO Q12 30 days #60 caps 06/11/25
furosemide 20 mg tablet 60 mg (3 x 20 mg) PO BID AT 0800,1600 3 days #18 tabs 06/11/25
Home Medication Changes
carvedilol 6.25 mg tablet 6.25 mg PO BID 30 days #60 tabs 06/11/25
dofetilide 250 mcg capsule 250 mcg PO Q12 30 days #60 caps 06/11/25
furosemide 20 mg tablet 60 mg (3 x 20 mg) PO BID AT 0800,1600 3 days #18 tabs 06/11/25
Pending Results: No
--- NOTE | 2025-06-11 12:25 | PTCARENOTE ---
~[id number]: Handoff report received from nightshift RN. Pt Aox4, NSR on tele 80s, SBP 90s-120s, RA satting 98%. Pt denies pain at this time. Independent in room. Family at bedside. Last dose tikosyn given this AM, EKG ordered 2 hours after per
protocol. All needs met at this time, call horton within reach.
~[id number]: Patient EKG done per order.
~[id number]: Message sent to Katerine BENNETT for paper script for 6 doses of dofetilide to given to patient on dc. Also informed Dr. Mijares that scripts have not yet been sent over to patient's preferred pharmacy yet
~0405-0480: Scripts sent over to pharmacy by hospitalist provider. Received 6 doses dofetilitde to send home with patient from pharmacy. DC paperwork reviewed with patient and . All questions answered. VSS. Patient d/c'd in stable condition to
home.
== END 2025-06-11 12:25 | disposition home or self-care (01) | DRG 291 ==
LOC: IVU 14:14
PROVIDERS: Physician Assistant Medical; ADMITTING PHYSICIAN Hospitalist; ATTENDING PHYSICIAN Internal Medicine; CONSULT PHYSICIAN Internal Medicine Cardiovascular Disease; EMERGENCY PHYSICIAN Emergency Medicine; FAMILY PHYSICIAN Family Medicine
DX: I11.0 Hypertensive heart disease with heart failure (principal); I50.23 Acute on chronic systolic (congestive) heart failure; I48.19 Other persistent atrial fibrillation; Z68.41 Body mass index [BMI] 40.0-44.9, adult; I42.8 Other cardiomyopathies; I27.20 Pulmonary hypertension, unspecified; E66.813 Obesity, class 3; G47.30 Sleep apnea, unspecified; Z79.01 Long term (current) use of anticoagulants; Z79.899 Other long term (current) drug therapy; Z87.74 Personal history of (corrected) congenital malformations of heart and circulatory system
CPT/HCPCS: 71046; 80048; 80053; 80162; 83735; 83880; 84443; 84484; 85025; 85027; 93005; 93306; 94640; 96374; 96376; 99291

== ENCOUNTER 2025-07-15 14:11 | Emergency (ER) | payer OTHER, SELFPAY ==
[2025-07-15] VITALS (25 sets, daily range): BP systolic 105–136; BP diastolic 73–104; BMI 41.9
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
[2025-07-15 15:33] LABS: Hematocrit 45.5 % (39.0-52.0); Hemoglobin 14.9 g/dL (13.0-18.0); Mean Corp Hgb Conc. 32.7 g/dL (33.0-37.0); Mean Corpuscular Volume 76.9 fL (80.0-94.0); Nucleated Red Blood Cells % 0 % (-); Platelet Count 303 10^3/uL (130-400); Red Cell Dist. Width 16.5 % (11.5-14.5)
[2025-07-15 15:47] LABS: ALT (SGPT) 32 U/L (0-50); AST (SGOT) 30 U/L (17-59); Albumin 4.9 g/dl (3.5-5.0); Alkaline Phosphatase 104 U/L (38-126); Blood Urea Nitrogen 21 mg/dl (9-20); Calcium 9.4 mg/dl (8.4-10.2); Carbon Dioxide 27 mmol/L (22-30); Chloride 105 mmol/L (98-107); Estimated Creatinine Clearance 106 ml/min; Glucose 103 mg/dl (70-99); Potassium 4.0 mmol/L (3.5-5.1); Sodium 143 mmol/L (135-145); Total Protein 8.1 g/dl (6.3-8.2); eGFR > 60.00
--- NOTE | 2025-07-15 16:04 | CON.CAR ---
Addendum entered and electronically signed by Olivier Gandhi MD 07/15/25 17:00:
I saw and examined the patient independently. Majority of MDM performed by me.
The HEEL COVER SPLITTER's note was reviewed and I agree with the note with changes/additions as noted below.
Comment: 39 yo male with NICM EF 20%, paroxysmal A fib on dofetilide and eliquis presents to ED with recurrence of A fib. He feels palps. His weights have been stable at home. Exam with irregular rhythm, tachy, II/ systolic murmur at apex, no
edema. Tele: A fib 120s.
Paroxysmal A fib. Recurrence with RVR. Symptomatic. No missed eliquis. Discussed with ED physician. Will proceed with DCCV in ED, then office follow up.
NICM. Continue GDMT with coreg, valsartan, aldactone. Meds limited by insurance/cost.
Original Note:
Consultation
Consultation Request
Date/Time Consultation Requested: 07/15/2025 1530
Date/Time Consultation Performed: 07/15/2025 1545
Requesting Provider: Dr. Handley
Performing Provider:
Reason for Consultation: AF RVR
Medical History
-
Chief Complaint: Palpitations, AF
History of Present Illness:
39 y/o with history of PDA repair, HTN, non ischemic cardiomyopathy, chronic HFrEF, PAF on dofetilide, CHADSVASC 2 on eliquis. He presents with recurrent palpitations and tachycardia. He noted he was back in AF 3 days ago. He notes palpitations,
mild CORRAL , and fatigue. He notes his HR on his BP cuff today at one point had a reading of 40 bpm which prompted eval in ER. He states he has been compliant with his eliquis and dofetilide.
Past Medical History
Past Medical History: Other (non ischemic cardiomyopathy, HFrEF, PAF , PDA repair, HTN,)
Past Surgical History: Other (PDA repair)
Social History
Tobacco: Non-Smoker
Alcohol: None
Living: With Family
Employment: Employed
Family History
Family History: Reviewed & Not Pertinent
Allergies / Home Medications
Allergy/AdvReac Type Severity Reaction Status Date / Time
No Known Allergies Allergy Verified 07/15/25 14:16
�Medication �Instructions �Recorded �Confirmed �Type
apixaban 5 mg tablet (Eliquis) 5 mg PO BID #60 tabs 10/04/24 06/08/25 Rx
spironolactone 25 mg tablet 25 mg PO DAILY #30 tabs 10/04/24 06/08/25 Rx
valsartan 40 mg tablet 40 mg PO BID #60 tabs 10/04/24 06/08/25 Rx
carvedilol 6.25 mg tablet 6.25 mg PO BID 30 days #60 tabs 06/11/25 Rx
dofetilide 250 mcg capsule 250 mcg PO Q12 30 days #60 caps 06/11/25 Rx
furosemide 20 mg tablet 60 mg (3 x 20 mg) PO BID AT 06/11/25 Rx
0800,1600 3 days #18 tabs
Review of Systems
-
History Source: Patient
All other systems: Negative unless noted
Constitutional: Fatigue
Respiratory: Trouble Breathing
Cardiac: Palpitations
Musculoskeletal: No Symptoms
Skin: No Symptoms
Neurological: No Symptoms
Physical Exam
Vital Signs
Temp Pulse Resp BP Pulse Ox
98.2 F 125 24 136/88 100
07/15/25 14:16 07/15/25 15:12 07/15/25 15:12 07/15/25 14:16 07/15/25 15:23
Lab Results
07/15/25 15:20
07/15/25 15:19
Physical Exam
General: Well Developed, Well Nourished and No Apparent Distress
HEENT: Normocephalic and Moist Mucous Membranes
Respiratory: Clear
Cardiac: S1/S2 and Irregular Rhythm (tachycardia)
GI: Soft, Non Tender and Normal Bowel Sounds
Musculoskeletal: No Edema
Skin: Warm and Dry
Neuro: AO x 3
Psych: Calm
Impression / Plan
-
AF RVR:
-pt notes he has been compliant with dofetilide and eliquis
-he has been getting his eliquis from PCP secondary to cost.
-he is awaiting his insurance to go through
-will plan for cardioversion in ER.
-He will need his evening dose of eliquis before he leaves today. He usually gets it from his PCP and was going there today but needed to come here.
-eventual ablation
Chronic HFpEF:
-con't current meds
Non ischemic cardiomyopathy:
-Con't GDMT
-Plan was for follow up echo in 09/2025.
Mod MR:
-noted on echo
HTN:
-improved on his medications.
Pt has follow up scheduled at our office with Susanna BAXTER on 07/31/25 at 4pm
Data Reviewed
-
EKG: Tracing Personally Visualized and interpreted (EKG from today AF RVR 131 bpm inferior infarct, non specific ST abn)
Medical Tests (Nuc Med, Echo etc): Report Reviewed by me (Echo 06/10/25 EF 20, stage III DD, mod MR)
Labs: Labs Reviewed by me, Discussed with Physician and Discussed with Patient
Old Records: Reviewed
Critical Care Time (in minutes): OP cardiology visit from 06/25/25 summarized as above.
[2025-07-15] MEDS: ELIQUIS 5 MG PO (17:34)
== END 2025-07-15 18:57 | disposition home or self-care (01) ==
LOC: EMR 14:11
PROVIDERS: EMERGENCY PHYSICIAN Emergency Medicine; FAMILY PHYSICIAN Family Medicine
DX: I48.0 Paroxysmal atrial fibrillation (principal); I42.8 Other cardiomyopathies; I11.0 Hypertensive heart disease with heart failure; I50.42 Chronic combined systolic (congestive) and diastolic (congestive) heart failure; I27.20 Pulmonary hypertension, unspecified; Z79.01 Long term (current) use of anticoagulants; Z87.74 Personal history of (corrected) congenital malformations of heart and circulatory system
CPT/HCPCS: 99285; 92960; 80053; 85025; 93005

== ENCOUNTER 2025-09-02 16:12 | Inpatient (IN) | payer MEDICAID, SELFPAY ==
[2025-09-02] VITALS (33 sets, daily range): BP systolic 61–150; BP diastolic 42–116; BMI 39.9
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
[2025-09-02] MEDS: CARDIZEM 10 MG IV (13:52)
[2025-09-02] MEDS: CARDIZEM 125 IV (13:52)
[2025-09-02 13:56] LABS: Hematocrit 44.0 % (39.0-52.0); Hemoglobin 14.9 g/dL (13.0-18.0); Mean Corp Hgb Conc. 33.9 g/dL (33.0-37.0); Mean Corpuscular Volume 78.0 fL (80.0-94.0); Nucleated Red Blood Cells % 0 % (-); Platelet Count 307 10^3/uL (130-400); Red Cell Dist. Width 18.0 % (11.5-14.5)
[2025-09-02 14:21] LABS: Troponin I 0.027 ng/ml
[2025-09-02 14:22] LABS: ALT (SGPT) 48 U/L (0-50); AST (SGOT) 36 U/L (17-59); Albumin 4.4 g/dl (3.5-5.0); Alkaline Phosphatase 89 U/L (38-126); Blood Urea Nitrogen 18 mg/dl (9-20); Calcium 9.1 mg/dl (8.4-10.2); Carbon Dioxide 26 mmol/L (22-30); Chloride 102 mmol/L (98-107); Glucose 100 mg/dl (70-99); Magnesium 2.2 mg/dl (1.6-2.3); Potassium 4.1 mmol/L (3.5-5.1); Sodium 136 mmol/L (135-145); Total Protein 7.4 g/dl (6.3-8.2); eGFR > 60.00
--- NOTE | 2025-09-02 16:07 | CON.CAR ---
Addendum entered and electronically signed by Cal Chase MD 09/02/25 18:34:
I reviewed and agree with the note by SAHIL and it accurately reflects our care.
I saw and evaluated the patient, and I provided the substantive portion of the medical decision making. My assessment and plan is below:
39-year-old man with dilated cardiomyopathy and HFrEF (LVEF 20%), paroxysmal atrial fibrillation, PDA s/p closure, pulmonary hypertension, and obesity who presents to the ER with palpitations and dyspnea. He just got back from a family trip to
[facility] [place]. On the drive back today started feeling palpitations. Of note, he has not been taking his Eliquis for the past few weeks because it was no longer affordable. His weight is stable. He denies orthopnea and leg swelling. In the ER
was found to be in A-fib with RVR and was started on a diltiazem drip.
Physical exam: Tachycardia, irregular rhythm, no murmurs, no lower extremity edema, clear lungs
Labs notable for proBNP 2730 (higher than previous admissions), Trop 0.027, creatinine 1.2
CXR: Cardiomegaly without pulmonary edema
ECG: A-fib with RVR, HR 161 bpm
Paroxysmal atrial fibrillation with RVR: In the ER, he was in RVR with borderline low blood pressures. He was started on a diltiazem drip. This is not ideal given his low LVEF, so we will try to wean it. We will switch his carvedilol to
metoprolol to tartrate for better heart rate control without as much BP effect. Continue home dofetilide. He has been restarted on apixaban 5 mg twice daily here but has not been taking this for the past several weeks due to insurance issues. He
now has Medicaid, so we will check with case management if Eliquis will be covered. If it is, we can proceed to ELVIS/DCCV tomorrow. Please keep n.p.o. past midnight.
HFrEF: Appears fairly euvolemic and denies recent weight gain. Given his elevated NT proBNP, we will give him 1 dose of IV Lasix. Suspect that we can return to p.o. dose tomorrow. In terms of GDMT, he is on a beta-iglesia, ARB, MRA, and SGLT2
inhibitor. Consider switching valsartan to Entresto now that he has Medicaid. Will ask case management to leung. He will also need advanced heart failure follow-up and consideration of ICD as an outpatient.
Original Note:
Consultation
Consultation Request
Date/Time Consultation Requested: 09/02/2025 16:00
Date/Time Consultation Performed: 09/02/2025 16:10
Requesting Provider: Dr. Shukla [MD Resident]
Performing Provider: SAHIL Anderson for Dr. Chase
Reason for Consultation: Atrial fibrillation with rapid trickle response, HFrEF
Medical History
-
Chief Complaint: Palpitations
History of Present Illness:
Scott Keane is a 39-year-old male (known to Dr. Emerson, his primary scenario writer), with DCM/HFrEF (LVEF 20%), paroxysmal atrial fibrillation (on dofetilide), type B PDA status postclosure, pulmonary hypertension, and obesity who presented
to the emergency department with a chief complaint of palpitations. He has been having an elevated heart rate for a few days. He was found in atrial fibrillation with ventricular response. He stopped his apixaban 2 weeks ago due to affordability.
At that time his Medicaid had not gone through. He states he has not gained any weight but he has been out of the state for the past several days. He does have CORRAL and has an elevated proBNP. He is not having any chest pain
Past Medical History
Past Medical History: Arrhythmias (Paroxysmal atrial fibrillation [dofetilide]), CHF (DCM, LVEF 20%), HTN, Hypercholesterolemia and Other (Pulmonary hypertension, PDA s/p closure)
Past Surgical History: Cardiac (PDA repair)
Social History
Tobacco: Non-Smoker
Alcohol: None
Drug: None
Personal:
Living: With Family
Family History
Family History: Reviewed & Not Pertinent
Allergies / Home Medications
Allergy/AdvReac Type Severity Reaction Status Date / Time
No Known Allergies Allergy Verified 09/02/25 12:54
�Medication �Instructions �Recorded �Confirmed �Type
spironolactone 25 mg tablet 25 mg PO DAILY #30 tabs 10/04/24 09/02/25 Rx
valsartan 40 mg tablet 40 mg PO BID #60 tabs 10/04/24 09/02/25 Rx
carvedilol 6.25 mg tablet 6.25 mg PO BID 30 days #60 tabs 06/11/25 09/02/25 Rx
dofetilide 250 mcg capsule 250 mcg PO Q12 30 days #60 caps 06/11/25 09/02/25 Rx
furosemide 20 mg tablet 60 mg (3 x 20 mg) PO BID AT 06/11/25 09/02/25 Rx
0800,1600 3 days #18 tabs
apixaban 5 mg tablet (Eliquis) 5 mg PO BID Heart Disease/Condition 09/02/25 09/02/25 History
Review of Systems
-
History Source: Patient
All other systems: Negative unless noted
Constitutional: Fatigue
EENT: No Symptoms
Respiratory: Trouble Breathing
Cardiac: Palpitations
Abdomen/GI: No Symptoms
: No Symptoms
Musculoskeletal: No Symptoms
Skin: No Symptoms
Neurological: No Symptoms
Endocrine: No Symptoms
Hematologic/Lymphatic: No Symptoms
Physical Exam
Vital Signs
Temp Pulse Resp BP Pulse Ox
98.4 F 109 32 94/65 98
09/02/25 12:54 09/02/25 15:15 09/02/25 15:15 09/02/25 15:15 09/02/25 15:15
Lab Results
09/02/25 13:44
09/02/25 13:44
Troponin I 0.027 ng/ml 09/02/25 13:44
Lic-P-Nnaoezajpvb Pept 2730 pg/ml 09/02/25 13:44
Physical Exam
General: Well Developed, Well Nourished, No Apparent Distress and Comfortable
HEENT: Normocephalic, Anicteric and Moist Mucous Membranes
Respiratory: Clear and Non Labored Respirations
Cardiac: S1/S2 and Irregular Rhythm
Breast: Deferred by me
GI: Soft, Non Tender, Non Distended and Normal Bowel Sounds
Rectal: Deferred by Provider
Genito-urinary: No Costovertebral Tender
Musculoskeletal: No Clubbing and No Cyanosis
Skin: Warm and Dry
Neuro: AO x 3
Psych: Calm
Impression / Plan
-
I/P: 39M with DCM/HFrEF (LVEF 20%), paroxysmal atrial fibrillation (on dofetilide), type B PDA status postclosure, pulmonary hypertension, and obesity who presented to the emergency department with a chief complaint of palpitations.
Primary scenario writer: Dr. Emerson, he has seen Dr. Chase Brunner in the past
Atrial fibrillation with RVR
- Plan is for rhythm management. Continue dofetilide (most recent QTc in sinus rhythm acceptable). Eventual ablation
- Rate control with diltiazem, not ideal with LVEF. Start metoprolol tartrate every 6 hours in an attempt to titrate diltiazem drip off. Then transition to metoprolol succinate after sinus rhythm is restored.
- Oral Anticoagulation: Apixaban 5 mg twice daily, he ran out approximately 2 weeks ago, resume today.
- [id number]: score 1 (Heart failure, HTN, age 75 or more, Diabetes Mellitus, prior Stroke/TIA, Vascular disease, age 65-74, female gender)
- ELVIS guided DCCV tomorrow
HFrEF (LVEF 20%), acute on chronic
- He does not appear grossly volume overloaded but looks like he would benefit from a dose of intravenous furosemide
- GDMT as tolerated:
-CARMENZA/ARB/ARNI: Follow BP, leung Entresto 24-26 mg twice daily, continue valsartan for now
-SGLT2 inhibitor: Case management to leung
-Aldosterone agonist: Continue spironolactone 25 mg daily
-Beta iglesia: Low BP, stop carvedilol and start metoprolol succinate
-Isosorbide/Hydralazine:�Not currently indicated
-ICD: Re-assess LVEF this admission and then 3 months after maximally tolerated GDMT
- Trend daily weight, I/O, and BMP with diuresis
- Echocardiogram after sinus rhythm is restored
- Heart failure education
- Now that he has health insurance, he will need evaluation down at [facility], he has seen Dr. Chase Brunner in the past
Mitral regurgitation, moderate
PDA, Type B, s/p closure
Pulmonary HTN, diuresis as above
Prediabetes, with hyperglycemia, HgbA1c pending
Obesity, consider GLP1 as an outpatient
Data Reviewed
-
EKG: Report Reviewed by me
Medical Tests (Nuc Med, Echo etc): Report Reviewed by me
Labs: Labs Reviewed by me
Old Records: Reviewed
--- NOTE | 2025-09-02 16:10 | CM ---
Chart reviewed and spoke with patient at ED bedside
He lives in [address] with and kids. 5 DANN
Independent with ADLs and ambulation
no DME
PCP Siria Lozano
RX plan yes
Pharmacy [facility] at [place]
no hx of VN nor SNF
DCP is to go home with no services
can provide transportation at DC
CM will continue to follow up for any dcp needs
--- NOTE | 2025-09-02 17:06 | HPS.HSE ---
Family Physician
-
Family Physician: Siria Lozano
Chief Complaint
-
Palpitations, chest tightness
History of Present Illness
A 39 y/o male with PMH of CHF with EF 20%, hypertension, nonischemic cardiomyopathy, Patent ductus arteriosus s/p repair in 2021 presented to ED with palpitations, chest tightness, shortness of breath. He started to have palpitations on 08/29/2025.
He did not seek any medical attention because he was in [place]. He ran out of his Eliquis samples provided by his PCP 2-2.5 weeks ago. He denies nausea, vomiting.
Medical History
Past Medical History
Past Medical History: Reports Arrhythmia, CHF and HTN
Additional Past Medical History:
Non ischemic cardiomyopathy, Patent ductus arteriosus
Past Surgical History: Reports Cardiac (PDA repair)
Additional Past Surgical History:
PDA repair 02/23/2022- amplatzer duct occluder
Social History
Tobacco: Non-smoker
Alcohol: Occasional (holidays 2 glasses of drink)
Drug: None
Personal:
Living: With Family
Family History
Family History: Diabetes
Allergies / Home Medications
Allergies reflects when Allergies were last updated in [employer].
Home Medications with original date entered in [employer]
Allergy/Medication List:
Allergies
Allergy/AdvReac Type Severity Reaction Status Date / Time
No Known Allergies Allergy Verified 09/02/25 12:54
Home Medications
spironolactone 25 mg tablet 25 mg PO DAILY #30 tabs 10/04/24
valsartan 40 mg tablet 40 mg PO BID #60 tabs 10/04/24
carvedilol 6.25 mg tablet 6.25 mg PO BID 30 days #60 tabs 06/11/25
dofetilide 250 mcg capsule 250 mcg PO Q12 30 days #60 caps 06/11/25
furosemide 20 mg tablet 60 mg (3 x 20 mg) PO BID AT 0800,1600 3 days #18 tabs 06/11/25
apixaban 5 mg tablet (Eliquis) 5 mg PO BID Heart Disease/Condition 09/02/25
Jardiance 10mg daily
Review of Systems
-
History Source: Patient
Constitutional: Reports No Symptoms
EENT: Reports No Symptoms
Respiratory: Reports No Symptoms
Cardiac: Reports Palpitations
Abdomen/GI: Reports No Symptoms
: Reports No Symptoms
Musculoskeletal: Reports No Symptoms
Skin: Reports No Symptoms
Neurological: Reports No Symptoms
Endocrine: Reports No Symptoms
Hematologic/Lymphatic: Reports No Symptoms
Psych: Reports Calm
Physical Exam
Vital Signs
Vital Signs
Temp Pulse Resp BP Pulse Ox
98.4 F 109 23 94/65 97
09/02/25 12:54 09/02/25 15:15 09/02/25 16:53 09/02/25 15:15 09/02/25 16:53
Physical Exam
General: Well Developed, Well Nourished, No Apparent Distress, Comfortable, Conversant and Morbidly Obese
HEENT: NormoCephalic, Anicteric, Moist mucous membranes and Atraumatic
Respiratory: Clear
Cardiac: S1/S2, Irregular Rhythm and Tachycardia
Breast: Deferred by me
GI: Soft, Non Tender, Non Distended and Normal Bowel Sounds
Rectal: Deferred by Provider
Genito-urinary: Deferred by me
Musculoskeletal: No Clubbing, No Cyanosis and No Edema
Skin: Warm and Dry
Neuro: AO x 3, No Motor Deficits, Nonfocal/grossly intact and No Sensory Deficits
Hematologic/Lymphatic: No Lymphadenopathy
Psych: Calm
Laboratory Results
-
09/02/25 13:44
09/02/25 13:44
Laboratory Results
Total Bilirubin 0.6 mg/dl (0.2-1.3) 09/02/25 13:44
AST 36 U/L (17-59) 09/02/25 13:44
ALT 48 U/L (0-50) 09/02/25 13:44
Alkaline Phosphatase 89 U/L (38-126) 09/02/25 13:44
Troponin I 0.027 ng/ml 09/02/25 13:44
Impression/Plan
-
IMPRESSION:
A 39 y/o male with PMH of CHF with EF 20%, hypertension, nonischemic cardiomyopathy, Patent ductus arteriosus s/p repair in 2021 presented to ED with palpitations, chest tightness, shortness of breath. He started to have palpitations on 08/29/2025.
He did not seek any medical attention because he was in [place]. He ran out of his Eliquis samples provided by his PCP 2-2.5 weeks ago.
Imaging:
Chest Xray 09/02/2025
-There is no parenchymal opacification or vascular congestion. The heart is enlarged, predominantly stable. There is no pneumothorax, pleural effusion or mediastinal shift
-Cardiomegaly, predominantly stable
EKG 09/02/2025
- Atrial fibrillation with rapid ventricular response
- QTc int: 504ms
-MINIMAL VOLTAGE CRITERIA FOR LVH, MAY BE NORMAL VARIANT ( [place] product )
INFERIOR INFARCT (CITED ON OR BEFORE 15-Jul-2025)
Echo 06/10/2025
1.Dilated LV with severely reduced systolic function.
2. LVEF is approximately 20% by visual estimation. Severe global diffuse hypokinesis.
3. Stage III diastolic dysfunction.
4. RV is not well-visualized.
5. Moderate eccentric mitral regurgitation.
6. Insufficient TR for estimation of PASP.
7. Compared to prior from October 02, 2024, LVEF is worse now ~20%, previously ~32%.
PLAN:
Atrial fibrillation with RVR
- Admit to IVU
- Ran out of Eliquis 5mg BID 2-2.5 weeks ago --> can not do Cardioversion in the ER
- Tikacyn 250mcg - long qtc 504, continue per cards
- Continue carvedilol
- Consult cardiology, input appreciated
- Continue Cardizem ggt, hold if HR<100
Non ischemic cardiomyopathy with Chronic HFrEF
- BNP 2730
- Troponin 0.027 -neg
- Continue GDMT-carvedilol 6.25mg QD, spironolactone 25mg QD, valsartan 40mg BID, [id number] QD outpatient regimen
- Continue Lasix 60mg BID
- Check magnesium
- Ordered echo
Hypertension
- Improved on his meds
- Monitor BP
DVT prophylaxis: Eliquis
Full code
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
[2025-09-02 17:10] LABS: D-Dimer 0.65 ug/mlFEU (0.00-0.50)
[2025-09-02] MEDS: LASIX 40 MG IV (18:13)
[2025-09-02] MEDS: LOPRESSOR 25 MG PO (18:13)
[2025-09-02] MEDS: ELIQUIS 5 MG PO (20:48)
[2025-09-02] MEDS: DIOVAN 40 MG PO (20:48)
[2025-09-02] MEDS: TIKOSYN 250 MCG PO (20:57)
[2025-09-02] MEDS: LEVOPHED 250 IV (21:21)
[2025-09-02] MEDS: SODIUM BICARBONATE 50 MEQ IV (21:25)
[2025-09-02] MEDS: CALCIUM CHLORIDE 10% SYRINGE 60 MG IV (21:27)
--- NOTE | 2025-09-02 21:39 | W.PN.UPDATE ---
Update Note
Progress Note Update
- around 21:15 called at the bedside as the patient is complaining of chest pain.
-Upon arriving to the room patient is hypotensive with bp 61/40s, hr 60s-70s. patient is awake and complaining of dizziness, nausea. Patient currently on Cardizem drip. EKG done.
-Cardizem placed on hold and stat Levophed started at 4mcg.
-Patient started to LOC and code 9 called.
-calcium and bicarb ordered by CVICU PA,
-Bp gradually going up and started to be conversant.
-Spoke to operations welder watermelon harvesting supervisor/ Dr Chase discussed the case, EKGs reviewed by operations welder, and agreed with the plan of starting Levophed, holding the Cardizem as long hr less than 130-140s.
-New recommendation to hold metoprolol, and trending troponin.
-Currently patient is free of chest pain and denies of any complains bp 100/ 70s hr 70s-80s
-ICU transfer.
-Spoke to the and updated.
--- NOTE | 2025-09-02 21:44 | W.PN.UPDATE ---
Update Note
Progress Note Update
-Presented urgently to pt's bedside for a near code-9
-Pt noted to have SBP 60's and near LOC upon arrival
-STAT dose of 1amp of Bicarbonate and 1g of Calcium chloride administered with good response. SBP subsequently in 100's, with pt noted to be conversant
-Levophed initiated, No IV fluids given Acute CHF with EF 20%. Labs sent and pending
-Pt apparently was on Cardizem gtt @ 15 mg/hr prior, for a-fib with RVR. Cardizem gtt has been discontinued, current HR is noted to be in rate controlled a-fib (70-90's)
-Pt to be transferred from IVU to MICU
[2025-09-02 21:56] LABS: Hematocrit 44.4 % (39.0-52.0); Hemoglobin 14.4 g/dL (13.0-18.0); Mean Corp Hgb Conc. 32.4 g/dL (33.0-37.0); Mean Corpuscular Volume 79.1 fL (80.0-94.0); Platelet Count 370 10^3/uL (130-400); Red Cell Dist. Width 18.0 % (11.5-14.5)
[2025-09-02] MEDS: FLUSH (NSS) 6 FLUSH IV (21:57)
[2025-09-02 22:06] LABS: ALT (SGPT) 46 U/L (0-50); AST (SGOT) 39 U/L (17-59); Albumin 4.4 g/dl (3.5-5.0); Alkaline Phosphatase 78 U/L (38-126); Blood Urea Nitrogen 17 mg/dl (9-20); Calcium 10.6 mg/dl (8.4-10.2); Carbon Dioxide 25 mmol/L (22-30); Chloride 104 mmol/L (98-107); Estimated Creatinine Clearance 116 ml/min; Glucose 113 mg/dl (70-99); Magnesium 2.3 mg/dl (1.6-2.3); Potassium 4.2 mmol/L (3.5-5.1); Sodium 138 mmol/L (135-145); Total Protein 7.7 g/dl (6.3-8.2); eGFR > 60.00
[2025-09-02 22:08] LABS: Nucleated Red Blood Cells % 0 % (-)
[2025-09-02 22:13] LABS: Troponin I 0.033 ng/ml
[2025-09-02 22:46] LABS: Glucose - Point of Care 122 mg/dl (70-99)
--- NOTE | 2025-09-02 22:46 | PTCARENOTE ---
Cardizem decreased to 10 mg HR 81 BP105/73. Within a few minutes of receiving pm meds patient c/o chest pressure, progressing to dizziness and SOB. BP noted to be decreasing to 60-70's systolic. Cardizem drip stopped. EKG done, patient placed on
2lpm O2 nasal cannula. EXECUTOR OF ESTATE, in with patient. Patient became diaphoretic and passed out while Levophed being hung. RR/code called. Code cancelled RR in action. Levophed up at 21:21, Bicarb 1Amp at 2125 and Calcium 1G at 21:27 administered.
Patient returned to full responsiveness. BP to 100's systolic. Patient care taken over by ICU team.
--- NOTE | 2025-09-02 22:50 | PTCARENOTE ---
Received pt from IVU. Pt is AAOx3. Pt is Afib on the monitor, LE trace edema, weak pedals. Received pt on 2L NC, weaned to RA O2 sat 95%, lungs diminished. Pt uses the urinal in bed. Received pt on 4 mcgs of levo, ICU BRAKE DRUM LATHE OPERATOR at bedside, wants levo gtt
turned off (see worklist). CHG bath and mouth care provided. SCDs in place. Call horton in reach. Safe environment maintained.
[2025-09-03] VITALS (21 sets, daily range): BP systolic 100–148; BP diastolic 59–109; BMI 41.2; BMI 41.3
--- NOTE | 2025-09-03 00:19 | W.PN.UPDATE ---
Update Note
Progress Note Update
Patient�transferred�to ICU for hypotensive�episode, temporized on�levophed�at 4mcg/min.�Prior to�the�event,�patient was on�diltiazem�drip�at�15mg/hr,�received�Diovan�40 mg�at�2045,�and received�Lopressor�25 mg�at�1800.��
When�the�patient�arrived�at�the�ICU:�levophed�was�stopped�and�hemodynamics�remained�stable. �AFib�continues�to�be rate control 80 to 90 bpm.��Discussed�with that�the�event looks�to be med�related�and if�the
patient�remains�stable�overnight,�he�will�be�downgraded�back to�the�IVU in�the morning.��
--- NOTE | 2025-09-03 00:49 | PTCARENOTE ---
Systems reviewed, no new changes in assessment. Call horton in reach. Safe environment maintained.
--- NOTE | 2025-09-03 04:16 | PTCARENOTE ---
Systems reviewed, no new changes in assessment. AM labs provided. Pt assisted to the BR, no c/o dizziness or lightheadedness. Safe environment maintained.
[2025-09-03 04:30] LABS: Hematocrit 41.1 % (39.0-52.0); Hemoglobin 14.6 g/dL (13.0-18.0); Mean Corp Hgb Conc. 35.5 g/dL (33.0-37.0); Mean Corpuscular Volume 75.1 fL (80.0-94.0); Platelet Count 255 10^3/uL (130-400); Red Cell Dist. Width 17.7 % (11.5-14.5)
[2025-09-03 04:49] LABS: Blood Urea Nitrogen 17 mg/dl (9-20); Calcium 9.3 mg/dl (8.4-10.2); Carbon Dioxide 24 mmol/L (22-30); Chloride 106 mmol/L (98-107); Estimated Creatinine Clearance > 125 ml/min; Glucose 106 mg/dl (70-99); Magnesium 2.1 mg/dl (1.6-2.3); Potassium 4.0 mmol/L (3.5-5.1); Sodium 138 mmol/L (135-145); eGFR > 60.00
[2025-09-03 05:23] LABS: Troponin I 0.030 ng/ml
[2025-09-03] MEDS: LOPRESSOR 25 MG PO ×3 (05:45→17:54)
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
[2025-09-03 07:26] LABS: Glycohemoglobin (HgbA1c) 5.9 % (4.0-5.9)
--- NOTE | 2025-09-03 07:30 | PTCARENOTE ---
Received pt awake and alert.Speech is appropriate.Gait is steady.Denies pain.A Fib noted.Decreased breath sounds bibasilar.POX 95% RA.NPO.Voiding yellow urine.Plan of care discussed with pt.
[2025-09-03] MEDS: ELIQUIS 5 MG PO ×2 (08:10→19:28)
--- NOTE | 2025-09-03 08:15 | PTCARENOTE ---
Report give to Stonemason Supervisor RN.Pt transported to Stonemason Supervisor via wheelchair with Stonemason Supervisor RN.
[2025-09-03] MEDS: TIKOSYN 250 MCG PO ×2 (08:21→19:28)
--- NOTE | 2025-09-03 09:01 | W.PN.CD ---
Today's Communication / Plan
-
luis/dccv today
cm consult to establish the correct approach to anticoagulation
transition to metop succinate on discharge
PVI referral as op
Advance CHF follow up as op
Impression / Plan
-
I/P: 39M with DCM/HFrEF (LVEF 20%), paroxysmal atrial fibrillation (on dofetilide), type B PDA status postclosure, pulmonary hypertension, and obesity who presented to the emergency department with a chief complaint of palpitations.
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 Emerson, he has seen Dr. Chase Brunner in the past
Atrial fibrillation with RVR
- Plan is for rhythm management. Continue dofetilide (most recent QTc in sinus rhythm acceptable). Eventual ablation
- Hypotensive episode with Dilt gtt--> THIS SHOULD BE AVOIDED WITH SEVERE CMY
-Recovered with brief vasopressor support, now normotensive without complaint.
- Oral Anticoagulation: Apixaban 5 mg twice daily, he ran out approximately 2 weeks ago,will need CM c/s to make sure he can afford it, can also consider Dabigatran.
- [id number]: score 1 (Heart failure, HTN, age 75 or more, Diabetes Mellitus, prior Stroke/TIA, Vascular disease, age 65-74, female gender)
- LUIS guided DCCV today
HFrEF (LVEF 20%), acute on chronic
- He does not appear grossly volume overloaded but looks like he would benefit from a dose of intravenous furosemide
- GDMT as tolerated:
-CARMENZA/ARB/ARNI: Follow BP, leung Entresto 24-26 mg twice daily, continue valsartan for now
-SGLT2 inhibitor: Case management to leung
-Aldosterone agonist: Continue spironolactone 25 mg daily
-Beta iglesia: Low BP, stop carvedilol and start metoprolol succinate( transition upon d/c from tartrate)
-Isosorbide/Hydralazine:�Not currently indicated
-ICD: Re-assess LVEF this admission and then 3 months after maximally tolerated GDMT, he has not followed up consistently for this, hopefully with insurance he can now be compliant and we can see improvement or offer this valuable tool to hime.
- Trend daily weight, I/O, and BMP with diuresis
- Heart failure education
- Now that he has health insurance, he will need evaluation down at [facility], he has seen Dr. Chase Brunner in the past--I have asked him to call upon discharge.
Mitral regurgitation, moderate
PDA, Type B, s/p closure
Pulmonary HTN, diuresis as above
Prediabetes, with hyperglycemia, HgbA1c pending
Obesity, consider GLP1 as an outpatient
Physical Exam
Vital Signs/Labs
Vital Signs
Temp Pulse Resp BP Pulse Ox
97.8 F 128 21 140/98 96
09/03/25 07:19 09/03/25 06:08 09/03/25 06:08 09/03/25 06:08 09/03/25 06:08
09/02/25 09/03/25 09/04/25
06:59 06:59 06:59
Actual Weight 294 lb 15.656 oz
09/03/25 04:08
09/03/25 04:08
Magnesium 2.1 mg/dl (1.6-2.3) 09/03/25 04:08
09/02/25
13:44
[id number] Pept 2730
LAB Results
09/02/25 09/02/25 09/03/25
13:44 21:38 04:08
Troponin I 0.027 0.033 Cancelled
09/03/25 09/03/25
04:48 09:30
Troponin I 0.030 Cancelled
Physical Exam
Constitutional: No acute distress
Cardiovascular: Pedal edema is absent, Systolic murmur absent and Rhythm/rate is irregular
Respiratory: Respiratory effort normal, Lungs clear to auscul., Wheeze Absent, Crackles Absent and Rhonchi Absent
Neuro/Psych: AO x 3
Data Reviewed
-
Date of Service: September 03, 2025
EKG: Other (fib with rvr)
[2025-09-03] MEDS: TYLENOL 650 MG PO (11:37)
[2025-09-03] MEDS: ALDACTONE 25 MG PO (12:22)
[2025-09-03] MEDS: FARXIGA 10 MG PO (12:23)
--- NOTE | 2025-09-03 13:11 | RESPNOTE ---
Respiratory: patient seen for Smoking Cessation: patient states he does not smoke, ever.
--- NOTE | 2025-09-03 13:16 | PTCARENOTE ---
Pt assessed.No change in assessment noted.Received pt from Reception Manager.SR noted.
--- NOTE | 2025-09-03 16:00 | PTCARENOTE ---
Pt assessed.No change in assessment noted.
[2025-09-03] MEDS: LASIX 60 MG PO (17:11)
--- NOTE | 2025-09-03 17:41 | PTCARENOTE ---
1700-Pt c/o 3/5 chest pressure coming from bilateral upper flank.c/o sob.POX 98% on RA.EKG completed.Dr Chase made aware.
[2025-09-03] MEDS: LASIX 80 MG IV (17:47)
--- NOTE | 2025-09-03 17:51 | PTCARENOTE ---
Lasix 80 mg IV given as ordered.
--- NOTE | 2025-09-03 19:20 | PTCARENOTE ---
Pt states that he is chest pressure/discomfort free at this time.He has voided in bathroom.
--- NOTE | 2025-09-03 19:47 | PTCARENOTE ---
Received pt from previous RN. Pt states he does not have any pain or pressure in his chest. Pt is AAOx3. Sinus tach/NSR on the monitor. Pt on RA O2 sat 98%, lungs clear/diminished. Pt uses the urinal in the BR. Pt educated on his fluid restriction
and measuring his urine output. Family at bedside. Call horton in reach. Safe environment maintained.
[2025-09-04] VITALS (10 sets, daily range): BP systolic 96–138; BP diastolic 57–91; BMI 40.5
--- NOTE | 2025-09-04 00:09 | ITS.CL.CARDI ---
Material Crew Supervisor - Cardioversion
Cardioversion
Procedure Report:
Date of Procedure: 09/03/25
Procedure: ELVIS/Cardioversion
Indication: Symptomatic atrial fibrillation
Performing Physician: Gianna Cagle DO FACC
Transesophageal echocardiogram technically difficult. No left atrial appendage thrombus. Please see official report for full details.
Anticoagulation: Eliquis
Antiarrhythmic therapy: Dofetilide
Technique: The patient was brought to the holding area. Signed informed consent was obtained. A time out was called and performed. The patient was anesthetized by the anesthesia service. Anticoagulation status was reviewed and appropriate. R2 pads
were placed anteriorly and posteriorly. Transesophageal echocardiogram was performed without complication; no left atrial appendage thrombus.A 200 J synchronized biphasic shock restored normal sinus rhythm without significant bradycardia. There were
no complications.
Conclusion: Uncomplicated cardioversion from atrial fibrillation to sinus rhythm.
Recommendation: Routine post cardioversion care. 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
[2025-09-04] MEDS: LOPRESSOR 25 MG PO ×5 (00:18→23:00)
[2025-09-04 04:48] LABS: Hematocrit 42.3 % (39.0-52.0); Hemoglobin 14.5 g/dL (13.0-18.0); Mean Corp Hgb Conc. 34.3 g/dL (33.0-37.0); Mean Corpuscular Volume 76.1 fL (80.0-94.0); Platelet Count 277 10^3/uL (130-400); Red Cell Dist. Width 17.6 % (11.5-14.5)
[2025-09-04 05:00] LABS: Blood Urea Nitrogen 17 mg/dl (9-20); Calcium 9.1 mg/dl (8.4-10.2); Carbon Dioxide 25 mmol/L (22-30); Chloride 103 mmol/L (98-107); Estimated Creatinine Clearance > 125 ml/min; Glucose 105 mg/dl (70-99); Potassium 3.4 mmol/L (3.5-5.1); Sodium 137 mmol/L (135-145); eGFR > 60.00
[2025-09-04] MEDS: KCL 20 MEQ PO (05:43)
[2025-09-04] MEDS: FARXIGA 10 MG PO (07:37)
[2025-09-04] MEDS: LASIX 60 MG PO (07:37)
[2025-09-04] MEDS: ELIQUIS 5 MG PO ×2 (07:37→20:07)
[2025-09-04] MEDS: TIKOSYN 250 MCG PO ×2 (07:37→20:07)
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
--- NOTE | 2025-09-04 08:27 | PTCARENOTE ---
Received pt awake and alert.Speech appropriate.Gait steady.Denies pain,chest discomfort or SOB.SR noted.Decreased breath sounds bibasilar.POX 97% on RA.Appetite good.voiding yellow urine.Plan of care discussed.
--- NOTE | 2025-09-04 09:44 | W.PN.CD ---
Today's Communication / Plan
-
continue one more day of IV lasix
life vest fitting
likely transtition to entresto tomorrow
cm c/s for sglt2i
close follow with HF team at [facility], appreciate the assistance of that team.
Impression / Plan
-
I/P: 39M with DCM/HFrEF (LVEF 20%), paroxysmal atrial fibrillation (on dofetilide), type B PDA status postclosure, pulmonary hypertension, and obesity who presented to the emergency department with a chief complaint of palpitations.
Primary credit manager: Dr. Emerson, he has seen Dr. Chase Brunner in the past
Atrial fibrillation with RVR
- Plan is for rhythm management. Continue dofetilide (most recent QTc in sinus rhythm acceptable). Eventual ablation
- Hypotensive episode with Dilt gtt--> THIS SHOULD BE AVOIDED WITH SEVERE CMY
-Recovered with brief vasopressor support, now normotensive without complaint.
- Oral Anticoagulation: Apixaban 5 mg twice daily, he ran out approximately 2 weeks ago,will need CM c/s to make sure he can afford it, can also consider Dabigatran.
- [id number]: score 1 (Heart failure, HTN, age 75 or more, Diabetes Mellitus, prior Stroke/TIA, Vascular disease, age 65-74, female gender)
- ELVIS guided DCCV 09/04/25 with acute dyspnea post dccv
-responded nice to IV lasix
HFrEF (LVEF 20%), acute on chronic
- EF now 10%, D/w Dr White at [facility], as he is already improving and no signs of low op, she will assist in arranging a close follow up at [facility] with Dr Brunner
-he is now agreeable to LIFE VEST, will arrange fro discharge
- GDMT as tolerated:
-CARMENZA/ARB/ARNI: Follow BP, leung Entresto 24-26 mg twice daily tomorrow if euvolemic, continue valsartan for now
-SGLT2 inhibitor: Case management to leung
-Aldosterone agonist: Continue spironolactone 25 mg daily
-Beta iglesia: Low BP, stop carvedilol and start metoprolol succinate( transition upon d/c from tartrate)
-Isosorbide/Hydralazine:�Not currently indicated
-ICD: Re-assess LVEF this admission and then 3 months after maximally tolerated GDMT, he has not followed up consistently for this, hopefully with insurance he can now be compliant and we can see improvement or offer this valuable tool to home,
LIFE VEST UNTIL THEN.
- Trend daily weight, I/O, and BMP with diuresis
- Heart failure education
Mitral regurgitation, moderate
PDA, Type B, s/p closure
Pulmonary HTN, diuresis as above
Prediabetes, with hyperglycemia, HgbA1c pending
Obesity, consider GLP1 as an outpatient
Subjective:
much better after IV lasix last night, home wt 284lbs.
ELVIS 09/03/25 1. Technically difficult study.
2. Severe dilated cardiomyopathy. Left ventricular ejection fraction visually estimated 10 to 15%.
3. Normal right ventricular size with low normal RV systolic function.
4. Massively dilated left atrium. Left atrial appendage without thrombus.
5. Mild mitral regurgitation. Mild tricuspid regurgitation.
6. No pericardial effusion.
7. Compared to prior echocardiogram dated 06/10/2025, left ventricular ejection fraction previously estimated 20%. Mitral regurgitation previously graded moderate.
8. Recommend Okay to proceed with planned cardioversion.
Cath 02/23/22:
HEMODYNAMIC DATA
AO: 102/70
LV: 102/16
PCWP: Unable
PA: 52/30 (mean 42)
RV:52/14
RA: 12
Oximetry: Ao 96%, LPA 83%, RV 65%, RA 65%, IVC 71%, SVC 64%
QP/QS= 1.9
LEFT VENTRICULOGRAPHY: Not performed
CORONARY ANGIOGRAPHY
Dominance: Right
Left Main: Normal
LAD: Normal
Circumflex: Normal
RCA: Normal
Closure Device: None-the procedure was performed via the right radial artery and right femoral vein. The Glenn's test was normal prior to the procedure.
Radiation dose (mGy): 514
DAP (cm2.Gy): 64.7
Fluoroscopy time: 12.3 minutes
CONCLUSIONS:
1. Elevated filling pressures with moderate pulmonary hypertension
2. Igjg-bo-pzgfp shunt (QP/QS 1.9) at the level of the pulmonary artery
3. Patent ductus arteriosus is likely diagnosis
3. Normal coronary arteries
Physical Exam
Vital Signs/Labs
Vital Signs
Temp Pulse Resp BP Pulse Ox
98.3 F 82 17 115/91 97
09/04/25 07:17 09/04/25 08:00 09/04/25 08:00 09/04/25 08:00 09/04/25 08:20
09/03/25 09/04/25 09/05/25
06:59 06:59 06:59
Actual Weight 294 lb 15.656 oz 290 lb 5.581 oz
09/04/25 04:15
09/04/25 04:15
Magnesium 2.1 mg/dl (1.6-2.3) 09/03/25 04:08
09/02/25
13:44
Wyz-T-Vynzgqfxspp Pept 2730
LAB Results
09/02/25 09/02/25 09/03/25
13:44 21:38 04:08
Troponin I 0.027 0.033 Cancelled
09/03/25 09/03/25
04:48 09:30
Troponin I 0.030 Cancelled
Physical Exam
Constitutional: No acute distress
Cardiovascular: Rhythm & rate is regular, Pedal edema is absent, JVD pressure is normal, Systolic murmur absent and Diastolic murmur absent
Respiratory: Respiratory effort normal, Lungs clear to auscul., Wheeze Absent, Crackles Absent and Rhonchi Absent
Neuro/Psych: AO x 3
Data Reviewed
-
Date of Service: September 04, 2025
Medical Decision Making: Review of Case with other Provider (Dr Vail will plan for d/c tomorrow with close follow up another day of IV lasix, life vest fitting)
EKG: Other (tele sinus 1 7 beat run of NSVT)
--- NOTE | 2025-09-04 10:01 | PTCARENOTE ---
Pt asked if he could be transferred to [facility] from .Vasiliy Vail and Idania made aware.
--- NOTE | 2025-09-04 10:03 | PTCARENOTE ---
Report given to 3 Tony MERCHANT.
--- NOTE | 2025-09-04 10:14 | PTCARENOTE ---
Pt status changed to IVU as per .
[2025-09-04 10:52] LABS: Magnesium 2.0 mg/dl (1.6-2.3)
[2025-09-04] MEDS: KCL 40 MEQ PO (11:48)
[2025-09-04] MEDS: LASIX 80 MG IV ×2 (11:50→16:42)
--- NOTE | 2025-09-04 12:00 | PTCARENOTE ---
Pt assessed.No change in assessment noted.
--- NOTE | 2025-09-04 16:32 | PTCARENOTE ---
Pt assessed.No change in assessment noted.
--- NOTE | 2025-09-04 16:54 | CM ---
Consult for pricing of multiple medications. Checked with pharmacy and insurance company for Medicaid. Patient has no co-pay for medications. Scripts forwarded. Will be available for pickup on 09/05/25 at [facility] in [place].
Patient recomended for Life Vest. Script and pertinent records forwarded to Eric Corey at [facility]. Anticipate patient will be fitted for vest including education and training this evening. Discharge POC: Home with Life Vest and no
additional skilled services.
--- NOTE | 2025-09-04 22:23 | PTCARENOTE ---
Received pt from previous RN. [employer] in the room for education and training, set up for discharge. Pt is AAOx3. NSR on the monitor. On RA O2 sat 100%, lungs diminished. Pt voids in the BR in the urinal. Pt with no complaints. Call horton in
reach. Safe environment maintained.
[2025-09-05] VITALS (8 sets, daily range): BP systolic 93–131; BP diastolic 50–88; BMI 39.7
[2025-09-05] MEDS: LOPRESSOR 25 MG PO (05:08)
[2025-09-05 05:14] LABS: Hematocrit 43.3 % (39.0-52.0); Hemoglobin 14.8 g/dL (13.0-18.0); Mean Corp Hgb Conc. 34.2 g/dL (33.0-37.0); Mean Corpuscular Volume 77.9 fL (80.0-94.0); Platelet Count 261 10^3/uL (130-400); Red Cell Dist. Width 17.7 % (11.5-14.5)
[2025-09-05 05:37] LABS: Blood Urea Nitrogen 19 mg/dl (9-20); Calcium 9.2 mg/dl (8.4-10.2); Carbon Dioxide 26 mmol/L (22-30); Chloride 106 mmol/L (98-107); Estimated Creatinine Clearance > 125 ml/min; Glucose 98 mg/dl (70-99); Magnesium 2.2 mg/dl (1.6-2.3); Potassium 3.4 mmol/L (3.5-5.1); Sodium 139 mmol/L (135-145); eGFR > 60.00
--- NOTE | 2025-09-05 05:49 | W.PN.UPDATE ---
Update Note
Progress Note Update
AM labs: Potassium 3.4, ordered supplement potassium 40 meq PO x 1 dose.
[2025-09-05] MEDS: KCL 40 MEQ PO (06:07)
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
[2025-09-05] MEDS: TIKOSYN 250 MCG PO (07:57)
[2025-09-05] MEDS: ELIQUIS 5 MG PO (07:57)
[2025-09-05] MEDS: FARXIGA 10 MG PO (07:57)
[2025-09-05] MEDS: LASIX 80 MG IV (08:01)
--- NOTE | 2025-09-05 09:56 | W.PN.CD ---
Addendum entered and electronically signed by Leanna Emerson MD 09/05/25 10:06:
Correction will reduce spironolactone to 12.5mg daily to allow for Entresto
Original Note:
Today's Communication / Plan
-
Ok to discharge home on following GDMT:
-CARMENZA/ARB/ARNI: , Entresto 24-26 mg twice daily will start today---renal panel in 2 weeks
-SGLT2 inhibitor:Farxiga 10 qd
-Aldosterone agonist: Continue spironolactone 25 mg daily
-Beta iglesia:Metop succinate 50po bid
-LIFE VEST
-Furosemide 80mg po bid (slight increase in home dose)
Continue Tikosyn and Eliquis without interruption
f/u next week with [facility] HF appt made for Tuesday in [place]
f/u at [facility] in ~4 weeks appt will be provided
Impression / Plan
-
I/P: 39M with DCM/HFrEF (LVEF 20%), paroxysmal atrial fibrillation (on dofetilide), type B PDA status postclosure, pulmonary hypertension, and obesity who presented to the emergency department with a chief complaint of palpitations.
Primary general office assistant: Dr. Emerson, he has seen Dr. Chase Brunner in the past
Atrial fibrillation with RVR
- Plan is for rhythm management. Continue dofetilide (most recent QTc in sinus rhythm acceptable). Eventual ablation
- Hypotensive episode with Dilt gtt--> THIS SHOULD BE AVOIDED WITH SEVERE CMY
-Recovered with brief vasopressor support, now normotensive without complaint.
- Oral Anticoagulation: Apixaban 5 mg twice daily, he ran out approximately 2 weeks ago,will need CM c/s to make sure he can afford it, can also consider Dabigatran.
- [id number]: score 1 (Heart failure, HTN, age 75 or more, Diabetes Mellitus, prior Stroke/TIA, Vascular disease, age 65-74, female gender)
- ELVIS guided DCCV 09/04/25 with acute dyspnea post dccv
-responded nice to IV lasix
HFrEF (LVEF 20%), acute on chronic
- EF now 10%, D/w Dr White at [facility], as he is already improving and no signs of low op, she will assist in arranging a close follow up at [facility] with Dr Brunner
-he is now agreeable to LIFE VEST, it is arragned and at the bedside for discharge, stressed complianc e
- GDMT as tolerated:
-CARMENZA/ARB/ARNI: Follow BP, Entresto 24-26 mg twice daily will start today---renal panel in 2 weeks
-SGLT2 inhibitor:Farxiga 10 qd
-Aldosterone agonist: Continue spironolactone 25 mg daily
-Beta iglesia: Low BP, stop carvedilol and start metoprolol succinate( transition upon d/c from tartrate)--> 50po bid
-Isosorbide/Hydralazine:�Not currently indicated
-ICD: Re-assess LVEF this admission and then 3 months after maximally tolerated GDMT, he has not followed up consistently for this, hopefully with insurance he can now be compliant and we can see improvement or offer this valuable tool to home,
LIFE VEST UNTIL THEN.
- Trend daily weight, I/O, and BMP with diuresis
- Heart failure education
Mitral regurgitation, moderate
PDA, Type B, s/p closure
Pulmonary HTN, diuresis as above
Prediabetes, with hyperglycemia, HgbA1c pending
Obesity, consider GLP1 as an outpatient
Subjective:
much better after IV lasix last night, home wt 284lbs which we are now at.
ELVIS 09/03/25 1. Technically difficult study.
2. Severe dilated cardiomyopathy. Left ventricular ejection fraction visually estimated 10 to 15%.
3. Normal right ventricular size with low normal RV systolic function.
4. Massively dilated left atrium. Left atrial appendage without thrombus.
5. Mild mitral regurgitation. Mild tricuspid regurgitation.
6. No pericardial effusion.
7. Compared to prior echocardiogram dated 06/10/2025, left ventricular ejection fraction previously estimated 20%. Mitral regurgitation previously graded moderate.
8. Recommend Okay to proceed with planned cardioversion.
Cath 02/23/22:
HEMODYNAMIC DATA
AO: 102/70
LV: 102/16
PCWP: Unable
PA: 52/30 (mean 42)
RV:52/14
RA: 12
Oximetry: Ao 96%, LPA 83%, RV 65%, RA 65%, IVC 71%, SVC 64%
QP/QS= 1.9
LEFT VENTRICULOGRAPHY: Not performed
CORONARY ANGIOGRAPHY
Dominance: Right
Left Main: Normal
LAD: Normal
Circumflex: Normal
RCA: Normal
Closure Device: None-the procedure was performed via the right radial artery and right femoral vein. The Glenn's test was normal prior to the procedure.
Radiation dose (mGy): 514
DAP (cm2.Gy): 64.7
Fluoroscopy time: 12.3 minutes
CONCLUSIONS:
1. Elevated filling pressures with moderate pulmonary hypertension
2. Ekvl-iq-jotem shunt (QP/QS 1.9) at the level of the pulmonary artery
3. Patent ductus arteriosus is likely diagnosis
3. Normal coronary arteries
Physical Exam
Vital Signs/Labs
Vital Signs
Temp Pulse Resp BP Pulse Ox
98.2 F 83 22 124/88 100
09/05/25 08:00 09/05/25 08:01 09/05/25 08:00 09/05/25 08:01 09/05/25 08:03
09/04/25 09/05/25 09/06/25
06:59 06:59 06:59
Actual Weight 290 lb 5.581 oz 284 lb 9.868 oz
09/05/25 05:00
09/05/25 05:00
Magnesium 2.2 mg/dl (1.6-2.3) 09/05/25 05:00
09/02/25
13:44
Duy-O-Uvkpixjlxsg Pept 2730
LAB Results
09/02/25 09/02/25 09/03/25
13:44 21:38 04:08
Troponin I 0.027 0.033 Cancelled
09/03/25 09/03/25
04:48 09:30
Troponin I 0.030 Cancelled
Physical Exam
Constitutional: No acute distress
Cardiovascular: Rhythm & rate is regular, Pedal edema is absent, JVD pressure is normal, Systolic murmur absent and Diastolic murmur absent
Respiratory: Respiratory effort normal, Lungs clear to auscul., Wheeze Absent and Crackles Absent
Neuro/Psych: AO x 3
Data Reviewed
-
Date of Service: September 05, 2025
Medical Decision Making: Review of Case with other Provider (Dr Kory Vail med changes )
EKG: Other (sinus on tele)
[2025-09-05] MEDS: KCL 20 MEQ PO (10:25)
[2025-09-05] MEDS: ENTRESTO 24 MG/26 MG 1 TAB PO (10:26)
--- NOTE | 2025-09-05 12:37 | PTCARENOTE ---
Rec'd care of patient at 0700. AAOx3. No complaints. Independent in room. VSS. Afebrile. NSR, 70-80's. 120-130/80's. Lung sounds cta. Pulse ox 100% on RA. +BS. Appetite good. Voiding via urinal. Peripheral site capped. Plan for discharge today. Life
vest at bedside.
--- NOTE | 2025-09-05 12:51 | W.DCSUMMARY ---
Addendum entered and electronically signed by Kory Vail MD 09/05/25 17:32:
Read, reviewed, and agree. See same day progress note for additional details.
Original Note:
Discharge Summary
Discharge Data
Date of Admission: 09/02/25
Date of Discharge: 09/05/25
-
Pending Results: No
Hospital Course
Discharging Physician : Dr. Myra Shukla, Dr. Kory Vail
Disposition : Home
Primary care physician : Siria Lozano
Principal Discharge diagnosis :
Atrial fibrillation with RVR
Non ischemic cardiomyopathy with Acute on Chronic HFrEF, EF 10%
Hypokalemia
Hypotensive syncope
Chronic Discharge diagnosis :
Hypertension
PDA (type b) status post closure in 2021
Moderate Mitral regurgitation
Obesity
Hospital Course :
is a 39 y/o male with PMH of HFrEF, hypertension, nonischemic cardiomyopathy, Patent ductus arteriosus s/p repair in 2021 presented to ED on 09/02/2025 with palpitations, chest tightness, shortness of breath. He has been experiencing
palpitations since 08/29/2025. He ran out of his Eliquis samples 2.5 weeks prior to presentation. He was on Cardizem ggt and beta blockers. The night of admission he developed hypotensive syncope likely secondary to medications he was on.
Hypotension was stabilized with levophed. His BP improved.
After restarting Eliquis the next day he had ELVIS guided DCCV on 09/03/2025, normal sinus rhythm was restored. After cardioversion he developed dyspnea and responded well to lasix. His EF on ELVIS was decreased from 20% to 10-15%. He is being
discharged with Lifevest on and GDMT without having any financial barriers to access his medications.
Recommendations
Pulmonary Vein Isolation (PVI) referral as OP
Please follow up next week with [facility] HF appointment made for Tuesday in [place]
Please follow up with the clinical transplant coordinator in 4 weeks appointment will be provided
Please follow up with your PCP within a week of discharge
Continue Tikosyn and Eliquis without interruption
Please use your LifeVest
Stop Coreg and Valsartan
Important imaging findings :
ELVIS 09/03/2025
1. Technically difficult study.
2. Severe dilated cardiomyopathy. Left ventricular ejection fraction visually estimated 10 to 15%.
3. Normal right ventricular size with low normal RV systolic function.
4. Massively dilated left atrium. Left atrial appendage without thrombus.
5. Mild mitral regurgitation. Mild tricuspid regurgitation.
6. No pericardial effusion.
7. Compared to prior echocardiogram dated 06/10/2025, left ventricular ejection fraction previously estimated 20%. Mitral regurgitation previously graded moderate.
8. Recommend Okay to proceed with planned cardioversion
Chest Xray 09/02/2025
-There is no parenchymal opacification or vascular congestion. The heart is enlarged, predominantly stable. There is no pneumothorax, pleural effusion or mediastinal shift
-Cardiomegaly, predominantly stable
EKG 09/02/2025
- Atrial fibrillation with rapid ventricular response
- QTc int: 504ms
-MINIMAL VOLTAGE CRITERIA FOR LVH, MAY BE NORMAL VARIANT ( Mauro product )
INFERIOR INFARCT (CITED ON OR BEFORE 15-Jul-2025)
Echo 06/10/2025
1.Dilated LV with severely reduced systolic function.
2. LVEF is approximately 20% by visual estimation. Severe global diffuse hypokinesis.
3. Stage III diastolic dysfunction.
4. RV is not well-visualized.
5. Moderate eccentric mitral regurgitation.
6. Insufficient TR for estimation of PASP.
7. Compared to prior from October 02, 2024, LVEF is worse now ~20%, previously ~32%.
Procedure findings :
Cardioversion 09/03/2025
-no left atrial appendage thrombus.A 200 J synchronized biphasic shock restored normal sinus rhythm without significant bradycardia
-Uncomplicated cardioversion from atrial fibrillation to sinus rhythm
Recommendation: Routine post cardioversion care. 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
Discharge Plan
-
Patient Disposition: Home (Routine Discharge)
Discharge Diagnosis/Procedures: Atrial fibrillation with RVR
Non ischemic cardiomyopathy with Acute on Chronic HFrEF, EF 10%
Hypokalemia
Hypotensive syncope
Hypertension
PDA (type b) status post closure in 2021
Moderate Mitral regurgitation
Obesity
Condition: Fair
Diet: Low Cholesterol, 2 Gram Sodium and Restrict fluids to 48 oz
Activity: As tolerated
Driving Restrictions: As prior to admission
Bathing Restrictions: None
Blood Work: Renal profile in 2 weeks
Specialty Instructions: Weigh Daily- Call MD for wt gain/loss 3 lbs overnight/5 lbs in 1 week
Instructions: *CBC Heart Failure Instructions
Referrals:
Chase Brunner MD [Non-Admitting Privileges, General] - 09/13/25
Referral Note: Next available appointment.
Siria Lozano MD [Family Provider, Family Practice]
Leanna Emerson MD [Active, Cardiology] - 10/04/25 11:20 am
Referral Note: This is at the [facility] in [place], [place]: [address] [place] [address], [address]. [phone].
Additional Discharge Medication Instructions: Please follow up next week with [facility] HF appointment made for Tuesday in [place]
Please follow up with the clinical transplant coordinator in 4 weeks appointment will be provided
Please follow up with your PCP within a week of discharge
Continue Tikosyn and Eliquis without interruption
Please use your LifeVest
Stop Coreg and Valsartan
Prescriptions:
New
Eliquis 5 mg tablet
5 mg PO BID Qty: 60 0RF
dapagliflozin propanediol [Farxiga] 10 mg tablet
10 mg PO DAILY Qty: 30 0RF
sacubitril-valsartan [Entresto] 24-26 mg tablet
1 tab PO BID Qty: 60 0RF
metoprolol succinate 50 mg Tablet Extended Release 24 Hr
50 mg PO BID Qty: 60 0RF
spironolactone 25 mg Tablet
12.5 mg PO DAILY Qty: 30 0RF
furosemide 80 mg Tablet
80 mg PO BID@0800,1600 Qty: 60 0RF
Continued
dofetilide 250 mcg Capsule
250 mcg PO Q12 30 Days Qty: 60 0RF
Discontinued
spironolactone 25 mg Tablet
25 mg PO DAILY Qty: 30 0RF
valsartan 40 mg Tablet
40 mg PO BID Qty: 60 0RF
carvedilol 6.25 mg Tablet
6.25 mg PO BID 30 Days Qty: 60 0RF
furosemide 20 mg Tablet
60 mg PO BID AT 0800,1600 3 Days Qty: 18 0RF
Eliquis 5 mg tablet
5 mg PO BID
Discharge Orders:
Discharge Patient (As Directed); Ordered 09/05/25
Ordered By: Kory Vail
Discharge Date and Time
Discharge Date/Time: 09/05/25 13:53
Print Language: KOREAN
--- NOTE | 2025-09-05 12:52 | W.DS.TRANS ---
DC Summary - Outcomes Specialist
-
Discharge Instructions:
Sleep Apnea Risk High
Discharge Diagnosis/Procedures Atrial fibrillation with RVR
Non ischemic cardiomyopathy with Acute on
Chronic HFrEF, EF 10%
Hypokalemia
Hypotensive syncope
Hypertension
PDA (type b) status post closure in 2021
Moderate Mitral regurgitation
Obesity
Diet Low Cholesterol,2 Gram Sodium,Restrict fluids to
48 oz
Activity As tolerated
Driving Restrictions As prior to admission
Bathing Restrictions None
Blood Work Renal profile in 2 weeks
Specialty Instructions Weigh Daily
Instructions: *[facility] Heart Failure Instructions
Stand-Alone Forms:
Changes to Home Medications: Yes
Discharge Medications:
DC Medications w/original date entered in [employer]
dofetilide 250 mcg capsule 250 mcg PO Q12 30 days #60 caps 06/11/25
apixaban 5 mg tablet (Eliquis) 5 mg PO BID Blood clot prevention/tx #60 tabs 09/04/25
dapagliflozin propanediol 10 mg tablet (Farxiga) 10 mg PO DAILY Heart disease/condition #30 tabs 09/04/25
sacubitril 24 mg-valsartan 26 mg tablet (Entresto) 1 tab PO BID Heart disease/condition #60 tabs 09/04/25
furosemide 80 mg tablet 80 mg PO BID@0800,1600 #60 tabs 09/05/25
metoprolol succinate 50 mg tablet,extended release 24 hr 50 mg PO BID #60 tabs 09/05/25
spironolactone 25 mg tablet 12.5 mg (1/2 x 25 mg) PO DAILY #30 tabs 09/05/25
Home Medication Changes
Coreg stopped
Metoprolol new
Aldactone reduced
Entresto new
Lasix increased.
Diovan stopped
Pending Results: No
--- NOTE | 2025-09-05 14:16 | CM ---
Patient has been medically cleared for discharge to home with no additional skilled services. Patient received his cardiac vest last evening with instructions, education and training. In follow-up this am patient reports that he feels comfortable
with wearing the vest and understands its function and use. He has been provided the 25/04 phone # for [employer] liaison should he have any questions or concerns. transported home.
== END 2025-09-05 13:53 | disposition home or self-care (01) | DRG 291 ==
LOC: ICU 16:12
PROVIDERS: Internal Medicine Cardiovascular Disease; Physician Assistant; ADMITTING PHYSICIAN Hospitalist; CONSULT PHYSICIAN Student in an Organized Health Care Education/Training Program; EMERGENCY PHYSICIAN Student in an Organized Health Care Education/Training Program; FAMILY PHYSICIAN Family Medicine
PROC: B24BZZ4 Ultrasonography of Heart with Aorta, Transesophageal (ICD-10-PCS; 2025-09-03)
PROC: 5A2204Z Restoration of Cardiac Rhythm, Single (ICD-10-PCS; 2025-09-04)
DX: I11.0 Hypertensive heart disease with heart failure (principal); I50.23 Acute on chronic systolic (congestive) heart failure; I48.0 Paroxysmal atrial fibrillation; I42.0 Dilated cardiomyopathy; E87.6 Hypokalemia; Z87.74 Personal history of (corrected) congenital malformations of heart and circulatory system; I34.0 Nonrheumatic mitral (valve) insufficiency; E66.9 Obesity, unspecified; Z68.39 Body mass index [BMI] 39.0-39.9, adult; R55 Syncope and collapse; Z79.01 Long term (current) use of anticoagulants; Z79.899 Other long term (current) drug therapy; Z79.84 Long term (current) use of oral hypoglycemic drugs; E11.9 Type 2 diabetes mellitus without complications; E78.00 Pure hypercholesterolemia, unspecified; I27.20 Pulmonary hypertension, unspecified
CPT/HCPCS: 71046; 80048; 80053; 82962; 83036; 83735; 83880; 84443; 84484; 85025; 85027; 85379; 92960; 93005; 93312; 93320; 93325; 93970; 96374; 96376